=== PATIENT | male | born 1965 | race Hispanic/Latino ===

== ENCOUNTER 2019-08-23 15:21 | Emergency (ER) | payer MEDICARE, OTHER ==
[~2019-08-23] VITALS: Ht 170.2 cm; Wt 128.9 kg
[2019-08-23] MEDS ORDERED: CITA40TA4 PO (15:39)
[2019-08-23] MEDS ORDERED: SYNT25TA PO (15:39)
[2019-08-23 16:19] LABS: BASO # 0.1 10^3/uL (0.0-0.2); BASO % 0.7 % (0.0-1.0); EOS # 0.2 10^3/uL (0.0-0.5); EOS % 2.2 % (0.0-3.0); HEMATOCRIT 47.9 % (42.0-52.0); HEMOGLOBIN 15.8 g/dl (13.5-17.5); LYMPH # 3.8 10^3/uL (1.5-5.0); LYMPH % 37.8 % (24.0-44.0); MEAN CORPUSCULAR HEMOGLOBIN 28.3 pg (27.0-33.0); MEAN CORPUSCULAR VOLUME 85.8 fl (80.0-96.0); MONO # 0.9 10^3/uL (0.0-0.8); MONO % 8.6 % (0.0-5.0); NEUTROPHILS % 50.3 % (36.0-66.0); PLATELET COUNT, AUTOMATED 284 10^3/uL (150-450); RED BLOOD COUNT 5.58 10^6/uL (4.30-6.10)
[2019-08-23 16:35] LABS: INR 1.01
[2019-08-23 16:39] LABS: ERYTHROCYTE SEDIMENTATION RATE 11 mm/hr (0-20)
[2019-08-23 16:45] LABS: BLOOD UREA NITROGEN 17 MG/DL (7-18); C REACTIVE PROTEIN QUANTITATIV 0.37 MG/DL (0.00-0.30); CALCIUM LEVEL 9.5 MG/DL (8.5-10.1); CARBON DIOXIDE LEVEL 27 MEQ/L (21-32); CHLORIDE LEVEL 107 MEQ/L (98-107); CREATININE FOR GFR 1.13 MG/DL (0.70-1.30); GLOMERULAR FILTRATION RATE > 60.0 (>56); GLUCOSE, FASTING 99 MG/DL (70-100); SODIUM LEVEL 140 MEQ/L (136-145)
--- NOTE | 2019-08-23 17:03 | REP ---
Right lower extremity Duplex Doppler venous ultrasound: Real time compression and duplex Doppler interrogation of the right lower extremity deep venous system is performed. The right common femoral, superficial femoral and popliteal veins are fully compressible with transducer pressure and demonstrate normal spontaneous and phasic flow, without evidence of deep venous thrombosis. Impression: No evidence of deep venous thrombosis of the right lower extremity femoral popliteal venous system. Electronically Signed by Murphy Tavarez MD 08/23/2019 04:55 P
[2019-08-23] MEDS ORDERED: KEFL500C17 PO (17:27)
[2019-08-23] MEDS ORDERED: CEPHALEXIN 500 MG CAP PO ONE (17:30)
[2019-08-23 17:52] VITALS: BP 159/81
== END 2019-08-23 17:53 | disposition home or self-care (01) ==
LOC: M ED 15:21
DX: L03.115 Cellulitis of right lower limb (principal); Z86.718 Personal history of other venous thrombosis and embolism; E03.9 Hypothyroidism, unspecified; F41.9 Anxiety disorder, unspecified; Z91.013 Allergy to seafood; Z79.899 Other long term (current) drug therapy

== ENCOUNTER → 2019-10-26 | Outpatient (REF) | payer MEDICARE, MEDICAID ==
[~2019-10-26] MED LIST: CITA40TA4 PO; KEFL500C17 PO; SYNT25TA PO
[2019-11-30 08:07] LABS: BASO # 0.1 10^3/uL (0.0-0.2); BASO % 0.5 % (0.0-1.0); EOS # 0.2 10^3/uL (0.0-0.5); HEMATOCRIT 46.8 % (42.0-52.0); HEMOGLOBIN 15.1 g/dl (13.5-17.5); LYMPH # 4.2 10^3/uL (1.5-5.0); MEAN CORPUSCULAR HEMOGLOBIN 29.3 pg (27.0-33.0); MEAN CORPUSCULAR HGB CONC 32.3 g/dl (32.0-36.5); MEAN CORPUSCULAR VOLUME 90.7 fl (80.0-96.0); MONO # 0.9 10^3/uL (0.0-0.8); MONO % 7.5 % (0.0-5.0); NEUTROPHILS # 6.2 10^3/uL (1.5-8.5); NEUTROPHILS % 53.6 % (36.0-66.0); PLATELET COUNT, AUTOMATED 279 10^3/uL (150-450); RED BLOOD COUNT 5.16 10^6/uL (4.30-6.10); WHITE BLOOD COUNT 11.5 10^3/uL (4.0-10.0)
[2019-12-11 14:04] LABS: ALT/SGPT 47 U/L (12-78); BILIRUBIN,TOTAL 0.4 MG/DL (0.2-1.0); BLOOD UREA NITROGEN 14 MG/DL (7-18); CARBON DIOXIDE LEVEL 27 MEQ/L (21-32); CHLORIDE LEVEL 105 MEQ/L (98-107); CREATININE FOR GFR 1.06 MG/DL (0.70-1.30); GLOMERULAR FILTRATION RATE > 60.0 (>56); GLUCOSE, FASTING 136 MG/DL (70-100); POTASSIUM SERUM 3.9 MEQ/L (3.5-5.1); SODIUM LEVEL 139 MEQ/L (136-145)
[2019-12-11 14:05] LABS: ALBUMIN 3.6 GM/DL (3.2-5.2); CHOLESTEROL LEVEL 191 MG/DL (<200); CHOLESTEROL RISK RATIO 4.152 (<5); FREE T4 1.07 NG/DL (0.76-1.46); HDL CHOLESTEROL 46 MG/DL (>40); HEMOGLOBIN A1c 6.3 %; LDL CHOLESTEROL 85 MG/DL (<100); NON-HDL-C 145 MG/DL; TOTAL 25(OH) VITAMIN D 47.2 NG/ML (30.0-100.0); TOTAL PROTEIN 7.2 GM/DL (6.4-8.2); TRIGLYCERIDES LEVEL 300 MG/DL (<150)
== END ==
LOC: M LAB REF 12:55
PROVIDERS: ATTEND Physician Assistant
DX: Z00.01 Encounter for general adult medical examination with abnormal findings (principal); Z86.2 Personal history of diseases of the blood and blood-forming organs and certain disorders involving the immune mechanism; Z68.42 Body mass index [BMI] 45.0-49.9, adult; E66.01 Morbid (severe) obesity due to excess calories; E03.9 Hypothyroidism, unspecified; Z23 Encounter for immunization; Z87.820 Personal history of traumatic brain injury; F41.1 Generalized anxiety disorder; Z78.9 Other specified health status; M25.562 Pain in left knee; M25.561 Pain in right knee

== ENCOUNTER 2019-10-28 11:00 | Emergency (ER) | payer MEDICARE, MEDICAID | END 2019-10-28 13:30 | disposition home or self-care (01) | LOC: M ED 11:00 | DX: M17.0 Bilateral primary osteoarthritis of knee (principal); M25.461 Effusion, right knee; M25.462 Effusion, left knee; S89.91XS Unspecified injury of right lower leg, sequela; X58.XXXS Exposure to other specified factors, sequela; E11.9 Type 2 diabetes mellitus without complications; E03.9 Hypothyroidism, unspecified; Z86.718 Personal history of other venous thrombosis and embolism; F41.9 Anxiety disorder, unspecified; Z91.013 Allergy to seafood; Z79.899 Other long term (current) drug therapy ==

== ENCOUNTER 2020-03-10 11:24 | Emergency (ER) | payer MEDICARE, MEDICAID ==
[~2020-03-10] VITALS: Ht 170.2 cm; Wt 135.4 kg
[2020-03-10] MEDS ORDERED: MELO15TA28 PO (11:34)
[2020-03-10] MEDS ORDERED: LEVO100T5 PO (11:34)
[2020-03-10] MEDS ORDERED: KETOROLAC 30 MG/ML 1ML VIAL IM ONE (12:00)
[2020-03-10] MEDS ORDERED: LIDOCAINE 5% (LIDODERM) PATCH TD ONE (12:00)
[2020-03-10] MEDS ORDERED: ACETAMINOPHEN 500 MG TAB PO ONE (12:00)
--- NOTE | 2020-03-10 12:19 | REP ---
INDICATION: pain, radiating to thigh COMPARISON: None. TECHNIQUE: AP and frog-lateral views of the left hip FINDINGS: Generalized age-related changes include subtle increased sclerosis to the acetabulum with minimal joint space narrowing. No further overt osteoarthritic or significant degenerative changes are appreciated. No evidence for acute or healed injury. Surrounding soft tissues are normal. IMPRESSION: Mild generalized age-related changes. <Electronically signed by Desmond Rodriguez > 03/10/20 [id number]
--- NOTE | 2020-03-10 12:23 | REP ---
INDICATION: low back pain radiating into right thigh. COMPARISON: None. TECHNIQUE: Axial noncontrast images of the lumbosacral spine from mid T12 through mid sacrum with coronal and sagittal reformations. This CT examination was performed using the following dose reduction techniques: Automated exposure control, adjustment of mA and/or kv according to the patient's size, and use of iterative reconstruction technique. FINDINGS: Alignment and lordosis maintained. Moderate to advanced multilevel degenerative changes include osteophytosis, endplate sclerosis, posterior osteophytes, hypertrophic facet changes, vacuum phenomenon at multiple disc levels and associated disc space narrowing. Elements of chronic canal stenosis are also suggested at L2-3, L4-5 and to a lesser extent L3-4 and L5-S1. No acute fracture/compression injury or subluxation. IMPRESSION: Moderate to advanced multilevel degenerative spondylosis. Consider outpatient MRI evaluation if the patient remains symptomatic. <Electronically signed by Desmond Rodriguez > 03/10/20 [id number]
[2020-03-10] MEDS ORDERED: ROBA750T4 PO (14:10)
[2020-03-10 14:27] VITALS: BP 160/79
[2020-03-10] MEDS ORDERED: **NOTE PATIENT COMMENT** MISC XX SCH (21:00)
== END 2020-03-10 14:29 | disposition home or self-care (01) ==
LOC: M ED 11:24
DX: M47.897 Other spondylosis, lumbosacral region (principal); M47.896 Other spondylosis, lumbar region; M17.10 Unilateral primary osteoarthritis, unspecified knee; E03.9 Hypothyroidism, unspecified; E11.9 Type 2 diabetes mellitus without complications; Z91.013 Allergy to seafood; Z79.899 Other long term (current) drug therapy

== ENCOUNTER → 2020-04-22 | Outpatient (REF) | payer MEDICARE ==
[~2020-04-22] MED LIST changes: +LEVO100T5 PO; +MELO15TA28 PO; +ROBA750T4 PO
[2020-04-22 17:13] LABS: BASO # 0.1 10^3/uL (0.0-0.2); BASO % 0.8 % (0.0-1.0); EOS # 0.3 10^3/uL (0.0-0.5); EOS % 2.9 % (0.0-3.0); HEMOGLOBIN 14.9 g/dl (13.5-17.5); LYMPH # 3.3 10^3/uL (1.5-5.0); LYMPH % 35.5 % (24.0-44.0); MEAN CORPUSCULAR HEMOGLOBIN 28.8 pg (27.0-33.0); MEAN CORPUSCULAR HGB CONC 31.7 g/dl (32.0-36.5); MEAN CORPUSCULAR VOLUME 90.7 fl (80.0-96.0); MONO # 0.7 10^3/uL (0.0-0.8); MONO % 7.5 % (0.0-5.0); NEUTROPHILS # 4.9 10^3/uL (1.5-8.5); NEUTROPHILS % 52.9 % (36.0-66.0); PLATELET COUNT, AUTOMATED 261 10^3/uL (150-450); RED BLOOD COUNT 5.18 10^6/uL (4.30-6.10); WHITE BLOOD COUNT 9.2 10^3/uL (4.0-10.0)
[2020-04-22 17:25] LABS: ALBUMIN 3.7 GM/DL (3.2-5.2); ALT/SGPT 43 U/L (12-78); BILIRUBIN,TOTAL 0.4 MG/DL (0.2-1.0); BLOOD UREA NITROGEN 12 MG/DL (7-18); CALCIUM LEVEL 9.1 MG/DL (8.5-10.1); CARBON DIOXIDE LEVEL 28 MEQ/L (21-32); CHLORIDE LEVEL 105 MEQ/L (98-107); CHOLESTEROL LEVEL 208 MG/DL (<200); CHOLESTEROL RISK RATIO 4.425 (<5); CREATININE FOR GFR 1.09 MG/DL (0.70-1.30); FREE T4 0.93 NG/DL (0.76-1.46); GLOMERULAR FILTRATION RATE > 60.0 (>56); GLUCOSE, FASTING 125 MG/DL (70-100); HDL CHOLESTEROL 47 MG/DL (>40); NON-HDL-C 161 MG/DL; POTASSIUM SERUM 3.9 MEQ/L (3.5-5.1); SODIUM LEVEL 141 MEQ/L (136-145); TOTAL 25(OH) VITAMIN D 16.9 NG/ML (30.0-100.0); TOTAL PROTEIN 7.5 GM/DL (6.4-8.2); TRIGLYCERIDES LEVEL 404 MG/DL (<150)
[2020-04-22 20:40] LABS: HEMOGLOBIN A1c 6.7 %
== END ==
LOC: M LAB REF 15:48
PROVIDERS: ATTEND Physician Assistant
DX: R03.0 Elevated blood-pressure reading, without diagnosis of hypertension (principal); E55.9 Vitamin D deficiency, unspecified; R73.03 Prediabetes; E03.9 Hypothyroidism, unspecified

== ENCOUNTER 2020-05-10 10:36 | Emergency (ER) | payer MEDICARE, MEDICAID ==
[~2020-05-10] VITALS: Ht 170.2 cm; Wt 138.6 kg
[2020-05-10] MEDS ORDERED: GABA-1171 PO (10:45)
[2020-05-10] MEDS ORDERED: AMLO1TAB24 PO (10:45)
--- OUTSIDE RECORDS SUMMARY | 2020-05-10 10:49 | CCD ---
Author Organization Unknown Address [address] [place] [address] Phone [phone] Care Team Providers Care Buckle Stringer Name Role Phone Thomas Koo Mauricio Unavailable Unavailable Allergies Code Code System Name Reaction Severity Status Onset Metformin Hcl Active 10/20/2019 Medications Name Status Start Date Stop Date amlodipine 5 mg tablet Take 1 tablet every day by oral route. Active Not available cephalexin 500 mg capsule TAKE 1 CAPSULE BY MOUTH EVERY 12 HOURS Completed 01/23/2020 citalopram 40 mg tablet TAKE 1 TABLET BY MOUTH ONCE DAILY Active Not a vailable clindamycin HCl 300 mg capsule TAKE 1 CAPSULE BY MOUTH EVERY 8 HOURS DIRECTED FOR CELLULITIS Active Not available Flublok Quad (PF) 180 mcg (45 mcg x 4)/0.5 mL IM syringe PHARMACIST ADMINISTERED IMMUNIZATION ADMINISTERED AT TIME OF DISPENSING Completed 01/23/2020 levothyroxine 100 mcg tablet TAKE 1 TABLET BY MOUTH ONCE DAILY Active Not a vailable meloxicam 15 mg tablet TAKE 1 TABLET BY MOUTH ONCE DAILY Active Not a vailable methocarbamol 750 mg tablet TAKE 1 TABLET BY MOUTH THREE TIMES DAILY Active Not available Problems Name Status Onset Date Source Hypothyroidism Active 10/20/2019 History Vitamin D Deficiency Active 10/20/2019 History Body Mass Index 30+ - Obesity Active 10/20/2019 Hi story Severe Obesity Active 10/20/2019 History Generalized Anxiety Disorder Active 10/20/2019 His tory Prediabetes Active 10/20/2019 History Elevated Blood-pressure Reading without Diagnosis of Hyperte nsion Active 10/20/2019 History Influenza Vaccine Needed Active 10/20/2019 History Procedure by Method Unknown 10/20/2019 History Pain in Right Knee Active 10/20/2019 History Pain in Left Knee Active 10/20/2019 History Clinical Finding Active 10/20/2019 History Essential Hypertension Active 05/01/2020 Low Back Pain Active 05/01/2020 Pain of Left Hip Joint Active 05/01/2020 Procedures Date Name Performed by 05/01/2020 XR, Hip, Unilateral [facility] [address] [place] [address] (Work [address]) 05/01/2020 XR, Lumbosacral Spine, 2 or 3 View [facility] [address] [place] [address] (Work Place) Notes: feet bilaterally Results Lab Results Date Name Specimen Result Interpretation Description Value Range Status Address 04/22/2020 CBC W/ Auto Diff Blood venous Normal White Blood C ount 9.2 10 4.0-10.0 10 [facility]: [address] [facility] Blood venous Normal Red Blood Count 5.18 10 4.30- 6.10 10 [facility]: [address] [facility] Blood venous Normal Hemoglobin 14.9 g/dL 13.5-17. 5 g/dL [facility]: [address] [facility] Blood venous Normal Hematocrit 47.0 % 42.0-52.0 % [facility]: [address] [facility] Blood venous Normal Mean Corpuscular Volume 90.7 fL 80.0-96.0 fL [facility]: [address] [place] [address] Blood venous Normal Mean Corpuscular Hemoglob in 28.8 pg 27.0-33.0 pg [facility]: [address] [facility] Blood venous Low Mean Corpuscular HGB Conc 31.7 g/dL 32.0-36.5 g/dL [facility]: [address] [facility] Blood venous Normal Red Cell Distribution Wid th 14.5 % 11.5-14.5 % [facility]: [address] [facility] Blood venous Normal Platelet Count, Automated 261 10 150-450 10 [facility]: [address] [facility] Blood venous Normal Neutrophils % 52.9 % 36.0-66. 0 % [facility]: [address] [facility] Blood venous Normal Lymph % 35.5 % 24.0-44.0 % [facility]: [address] [facility] Blood venous High Boone % 7.5 % 0.0-5.0 % [facility]: [address] [place] [address] Blood venous Normal Eos % 2.9 % 0.0-3.0 % [facility]: [address] [place] [address] Blood venous Normal Baso % 0.8 % 0.0-1.0 % [facility]: [address] [place] [address] Blood venous Normal Immature Granulocyte % 0.4 % 0-3.0 % [facility]: [address] [place] [address] Blood venous Normal Nucleated Red Blood Cell % 0. 0 % 0-0 % [facility]: [address] [place] [address] Blood venous Normal Neutrophils # 4.9 10 1.5-8.5 10 [facility]: [address] [place] [address] Blood venous Normal Lymph # 3.3 10 1.5-5.0 10 [facility]: [address] [place] [address] Blood venous Normal Boone # 0.7 10 0.0-0.8 10 [facility]: [address] [place] [address] Blood venous Normal Eos # 0.3 10 0.0-0.5 10 [facility]: [address] [place] [address] Blood venous Normal Baso # 0.1 10 0.0-0.2 10 [facility]: [address] [place] [address] 04/22/2020 CMP, Serum or Plasma Blood venous High Glu cose, Fasting 125 mg/dL 70-100 mg/dL [facility] nter: [address] [place] [address] Blood venous Normal Blood Urea Nitrogen 12 mg/dL 7-18 mg/dL [facility]: [address] [place] [address] Blood venous Normal Creatinine for GFR 1.09 mg/dL 0.70-1.30 mg/dL [facility]: [address] [place] [address] Blood venous Normal Glomerular Filtration Rate > 60.0 >56 [facility]: [address] [place] [address] Blood venous Normal Sodium Level 141 mEq/L 136-14 5 mEq/L [facility]: [address] [facility] Blood venous Normal Potassium Serum 3.9 mEq/L 3.5 -5.1 mEq/L [facility]: [address] [facility] Blood venous Normal Chloride Level 105 mEq/L 98-1 07 mEq/L [facility]: [address] [facility] Blood venous Normal Carbon Dioxide Level 28 mEq/L 21-32 mEq/L [facility]: [address] [facility] Blood venous Normal Anion Gap 8 mEq/L 8-16 mEq/L [facility]: [address] [facility] Blood venous Normal Calcium Level 9.1 mg/dL 8.5-1 0.1 mg/dL [facility]: [address] [facility] Blood venous Normal AST/SGOT 21 U/L 7-37 U/L [facility]: [address] [facility] Blood venous Normal ALT/SGPT 43 U/L 12-78 U/L [facility]: [address] [facility] Blood venous Normal Alkaline Phosphatase 56 U/L 4 5-117 U/L [facility]: [address] [facility] Blood venous Normal Bilirubin,total 0.4 mg/dL 0.2 -1.0 mg/dL [facility]: [address] [facility] Blood venous Normal Total Protein 7.5 gm/dL 6.4-8 .2 gm/dL [facility]: [address] [facility] Blood venous Normal Albumin 3.7 gm/dL 3.2-5.2 gm/ dL [facility]: [address] [facility] Blood venous Normal Albumin/globulin Ratio 1.0 [facility]: [address] [facility] 04/22/2020 Lipid Panel, Blood High Triglycerides Lev el 404 mg/dL <150 mg/dL [facility]: [address] [facility] High Cholesterol Level 208 mg/dL <200 mg/ dL [facility]: [address] [facility] Normal HDL Cholesterol 47 mg/dL >40 mg/dL F inal [facility]: [address] [facility] Normal Non-hdl-c 161 mg/dL Final [facility]: [address] [facility] Normal Cholesterol Risk Ratio 4.425 <5 Final [facility]: 0 [facility] 04/22/2020 TSH + Free T4, Serum Blood venous Normal Thyroid Stimulating Hormone 1.670 uIU/mL 0.358-3.740 uIU/mL Final [facility] Center: [address] [facility] Blood venous Normal Free T4 0.93 NG/dL 0.76-1.46 NG/dL Final [facility]: [address] [place] [address] 04/22/2020 Vitamin D, 25-Hydroxy, Total, Serum Blood venous Low Total 25(Oh) Vitamin D 16.9 NG/mL 30.0-100.0 NG/mL Final [facility]: 0 [facility] 04/22/2020 HbA1C (Hemoglobin a1C), Blood Blood venous Normal Hemoglobin a1C 6.7 % Final [facility]: [address] [facility] Blood venous High Estimated Average Glucose 146 mg/dL 60-110 mg/dL Final [facility]: 0 [facility] Past Encounters 05/01/2020 Body Mass Index 30+ - Obesity; Low Back Pain; Pain of Left Hip Joint; Essential Hypertension Jeff Carrero MD: [address] [phone], Ph. 04/22/2020 Elevated Blood-pressure Reading without Diagnosis of Hypertension; Vitamin D Deficiency; Prediabetes; Hypothyroidism KIT OsborneC: [address] [facility] [address] [address], Ph. 04/15/2020 KIT DuarteC: [address] [facility] [address] [place] [phone], Ph. 01/23/2020 Prediabetes; Body Mass Index 30+ - Obesity; Pain in Left Knee; Pain in Right Knee; Severe Obesity KIT DuarteC: [address] [facility], [facility] [address], [place] [address], Ph. Social History Tobacco Smoking Status Never Smoker Vaccine List Vaccine Type influenza, injectable, quadrivalent 12/21/2019 Tdap 10/20/20190.5 mL Plan of Care Reminders Provider Appointments None recorded. Lab None recorded. Referral None recorded. Procedures None recorded. Surgeries None recorded. Imaging None recorded. Vitals 05/01/2020 01:00PM ESTABLISHED [id number] Height Weight BMI Blood Pressure 67 in 314 lbs 6.4 oz 49.2 kg/m2 (1) 178/101 mm[Hg] (2) 170/95 mm[Hg] 01/23/2020 10:10AM ESTABLISHED [id number] Height Weight BMI Blood Pressure 67 in 299 lbs 8 oz 46.9 kg/m2 (1) 149/78 mm[ Hg] (2) 153/79 mm[Hg] 10/20/2019 Height Weight BMI Blood Pressure 67 in 287 lbs 6.08 oz 45.17 kg/m2 (1) 152/89 mm[Hg] (2) 161/89 mm[Hg]
--- OUTSIDE RECORDS SUMMARY | 2020-05-10 10:49 | CCD ---
Author Organization Unknown Address [address] [place] [address] Phone [phone] Care Team Providers Care Cisco Network Engineer Name Role Phone Thomas Koo Mauricio Unavailable Unavailable Allergies Code Code System Name Reaction Severity Status Onset Metformin Hcl Active 10/20/2019 Medications Name Status Start Date Stop Date cephalexin 500 mg capsule TAKE 1 CAPSULE [...] 10/20/2019 History Clinical Finding Active 10/20/2019 History Procedures Notes: feet bilaterally Results Lab Results None recorded. Past Encounters 04/22/2020 Elevated Blood-pressure Reading without Diagnosis of Hypertension; Vitamin D Deficiency; Prediabetes; Hypothyroidism Abby Page, RPA-C: [address], [place] [address], Ph. 04/15/2020 JOHANNA Duarte: [address] [facility], [facility] [address], [place] [address], Ph. 01/23/2020 Prediabetes; Body Mass Index 30+ - Obesity; Pain in Left Knee; Pain in Right Knee; Severe Obesity JOHANNA Duarte: [address] [facility], [facility] [address], [place] [address], Ph. Social History Tobacco Smoking Status Never Smoker Vaccine List Vaccine Type influenza, injectable, quadrivalent 12/21/2019 Tdap 10/20/20190.5 mL Plan of Care Reminders Provider Appointments None recorded. Lab None recorded. Referral None recorded. Procedures None recorded. Surgeries None recorded. Imaging None recorded. Vitals 01/23/2020 10:10AM ESTABLISHED [id number] Height Weight BMI Blood Pressure 67 in 299 lbs 8 oz 46.9 kg/m2 (1) 149/78 mm[ Hg] (2) 153/79 mm[Hg] 10/20/2019 Height Weight BMI Blood Pressure 67 in 287 lbs 6.08 oz 45.17 kg/m2 (1) 152/89 mm[Hg] (2) 161/89 mm[Hg]
--- OUTSIDE RECORDS SUMMARY | 2020-05-10 10:50 | CCD ---
Author Author [facility] Organization [facility] Address Unknown Phone Unavailable Care Team Providers Care Supervisor Train Operations Name Role Phone KOO, BHAVIN THOMAS RPA-C Unavailable Unavailable KOO, BHAVIN THOMAS RPA-C Unavailable Unavailable KOO, BHAVIN THOMAS RPA-C Unavailable Unavailable KOO, BHAVIN THOMAS RPA-C Unavailable Unavailable KOO, BHAVIN THOMAS RPA-C Unavailable Unavailable KOO, BHAVIN THOMAS RPA-C Unavailable Unavailable KOO, BHAVIN THOMAS RPA-C Unavailable Unavailable KOO, BHAVIN THOMAS RPA-C Unavailable Unavailable KOO, BHAVIN THOMAS RPA-C Unavailable Unavailable KOO, BHAVIN THOMAS RPA-C Unavailable Unavailable KOO, BHAVIN THOMAS RPA-C Unavailable Unavailable KOO, BHAVIN THOMAS RPA-C Unavailable Unavailable KOO, BHAVIN THOMAS RPA-C Unavailable Unavailable KOO, BHAVIN THOMAS RPA-C Unavailable Unavailable KOO, BHAVIN THOMAS RPA-C Unavailable Unavailable KOO, BHAVIN THOMAS RPA-C Unavailable Unavailable KOO, BHAVIN THOMAS RPA-C Unavailable Unavailable KOO, BHAVIN THOMAS RPA-C Unavailable Unavailable KOO, BHAVIN THOMAS RPA-C Unavailable Unavailable KOO, BHAVIN THOMAS RPA-C Unavailable Unavailable KOO, BHAVIN THOMAS RPA-C Unavailable Unavailable KOO, BHAVIN THOMAS RPA-C Unavailable Unavailable KOO, BHAVIN THOMAS RPA-C Unavailable Unavailable KOO, BHAVIN THOMAS RPA-C Unavailable Unavailable KOO, BHAVIN THOMAS RPA-C Unavailable Unavailable KOO, BHAVIN THOMAS RPA-C Unavailable Unavailable KOO, BHAVIN THOMAS RPA-C Unavailable Unavailable KOO, BHAVIN THOMAS RPA-C Unavailable Unavailable KOO, BHAVIN THOMAS RPA-C Unavailable Unavailable KOO, BHAVIN THOMAS RPA-C Unavailable Unavailable KOO, BHAVIN THOMAS RPA-C Unavailable Unavailable KOO, BHAVIN THOMAS RPA-C Unavailable Unavailable KOO, BHAVIN THOMAS RPA-C Unavailable Unavailable KOO, BHAVIN THOMAS RPA-C Unavailable Unavailable KOO, BHAVIN THOMAS RPA-C Unavailable Unavailable KOO, BHAVIN THOMAS RPA-C Unavailable Unavailable KOO, BHAVIN THOMAS RPA-C Unavailable Unavailable KOO, BHAVIN THOMAS RPA-C Unavailable Unavailable KOO, BHAVIN THOMAS RPA-C Unavailable Unavailable [facility] [place] Unavailable Unavailable Mauricio Carrero MD Unavailable Unavailable Mauricio Carrero MD Unavailable Unavailable Mauricio Carrero MD Unavailable Unavailable Mauricio Carrero MD Unavailable Unavailable Mauricio Carrero MD Unavailable Unavailable Mauricio Carrero MD Unavailable Unavailable Mauricio Carrero MD Unavailable Unavailable Mauricio Carrero MD Unavailable Unavailable Mauricio Carrero MD Unavailable Unavailable Mauricio Carrero MD Unavailable Unavailable Mauricio Carrero MD Unavailable Unavailable Mauricio Carrero MD Unavailable Unavailable Mauricio Carrero MD Unavailable Unavailable Mauricio Carrero MD Unavailable Unavailable Mauricio Carrero MD Unavailable Unavailable Mauricio Carrero MD Unavailable Unavailable Mauricio Carrero MD Unavailable Unavailable Mauricio Carrero MD Unavailable Unavailable Mauricio Carrero MD Unavailable Unavailable Mauricio Carrero MD Unavailable Unavailable Mauricio Carrero MD Unavailable Unavailable Mauricio Carrero MD Unavailable Unavailable Mauricio Carrero MD Unavailable Unavailable Mauricio Carrero MD Unavailable Unavailable Mauricio Carrero MD Unavailable Unavailable Mauricio Carrero MD Unavailable Unavailable Mauricio Carrero MD Unavailable Unavailable Mauricio Carrero MD Unavailable Unavailable Mauricio Carrero MD Unavailable Unavailable Mauricio Carrero MD Unavailable Unavailable Mauricio Carrero MD Unavailable Unavailable Mauricio Carrero MD Unavailable Unavailable Mauricio Carrero MD Unavailable Unavailable Mauricio Carrero MD Unavailable Unavailable Mauricio Carrero MD Unavailable Unavailable Mauricio Carrero MD Unavailable Unavailable Mauricio Carrero MD Unavailable Unavailable Mauricio Carrero MD Unavailable Unavailable Mauricio Carrero MD Unavailable Unavailable Mauricio Carrero MD Unavailable Unavailable Mauricio Carrero MD Unavailable Unavailable Mauricio Carrero MD Unavailable Unavailable Mauricio Carrero MD Unavailable Unavailable Mauricio Carrero MD Unavailable Unavailable Mauricio Carrero MD Unavailable Unavailable Mauricio Carrero MD Unavailable Unavailable Mauricio Carrero MD Unavailable Unavailable Mauricio Carrero MD Unavailable Unavailable Mauricio Carrero MD Unavailable Unavailable Mauricio Carrero MD Unavailable Unavailable Mauricio Carrero MD Unavailable Unavailable Mauricio Carrero MD Unavailable Unavailable Mauricio Carrero MD Unavailable Unavailable Mauricio Carrero MD Unavailable Unavailable Carrero, Mauricio Aguilar MD Unavailable Unavailable Carrero, Mauricio Aguilar MD Unavailable Unavailable Carrero, Mauricio Aguilar MD Unavailable Unavailable Carrero, Mauricio Aguilar MD Unavailable Unavailable Carrero, Mauricio Aguilar MD Unavailable Unavailable Carrero, Mauricio Aguilar MD Unavailable Unavailable Acrrero, Mauricio Aguilar MD Unavailable Unavailable Carrero, Mauricio Aguilar MD Unavailable Unavailable Carrero, Mauricio Aguilar MD Unavailable Unavailable Carrero, Mauricio Aguilar MD Unavailable Unavailable Carrero, Mauricio Aguilar MD Unavailable Unavailable Carrero, Mauricio Aguilar MD Unavailable Unavailable Carrero, Mauricio Aguilar MD Unavailable Unavailable Carrero, Mauricio Aguilar MD Unavailable Unavailable Carrero, Mauricio Aguilar MD Unavailable Unavailable Carrero, Mauricio Aguilar MD Unavailable Unavailable Carrero, Mauricio Aguilar MD Unavailable Unavailable Carrero, Mauricio Aguilar MD Unavailable Unavailable Carrero, Mauricio Aguilar MD Unavailable Unavailable Carrero, Mauricio Aguilar MD Unavailable Unavailable Carrero, Mauricio Aguilar MD Unavailable Unavailable Carrero, Mauricio Aguilar MD Unavailable Unavailable Carrero, Mauricio Aguilar MD Unavailable Unavailable Carrero, Mauricio Aguilar MD Unavailable Unavailable Carrero, Mauricio Aguilar MD Unavailable Unavailable Carrero, Mauricio Aguilar MD Unavailable Unavailable Carrero, Mauricio Aguilar MD Unavailable Unavailable Carrero, Mauricio Aguilar MD Unavailable Unavailable Carrero, Mauricio Aguilar MD Unavailable Unavailable Carrero, Mauricio Aguilar MD Unavailable Unavailable Carrero, Mauricio Aguilar MD Unavailable Unavailable Carrero, Mauricio Aguilar MD Unavailable Unavailable Carrero, Mauricio Aguilar MD Unavailable Unavailable Carrero, Mauricio Aguilar MD Unavailable Unavailable Carrero, Mauricio Aguilar MD Unavailable Unavailable MCELHERAN, ALAN PA Unavailable Unavailable MCELHERAN, ALAN PA Unavailable Unavailable MCELHERAN, ALAN PA Unavailable Unavailable MCELHERAN, ALAN PA Unavailable Unavailable MCELHERAN, ALAN PA Unavailable Unavailable MCELHERAN, ALAN PA Unavailable Unavailable MCELHERAN, ALAN PA Unavailable Unavailable MCELHERAN, ALAN PA Unavailable Unavailable MCELHERAN, ALAN PA Unavailable Unavailable MCELHERAN, ALAN PA Unavailable Unavailable MCELHERAN, ALAN PA Unavailable Unavailable MCELHERAN, ALAN PA Unavailable Unavailable MCELHERAN, ALAN PA Unavailable Unavailable MCELHERAN, ALAN PA Unavailable Unavailable MCELHERAN, ALAN PA Unavailable Unavailable MCELAN, ALAN PA Unavailable Unavailable MCELHERAN, ALAN PA Unavailable Unavailable MCELHERAN, ALAN PA Unavailable Unavailable MCELHERAN, ALAN PA Unavailable Unavailable MCELHERAN, ALAN PA Unavailable Unavailable MCELHERAN, ALAN PA Unavailable Unavailable MCELHERAN, ALAN PA Unavailable Unavailable MCELHERAN, ALAN PA Unavailable Unavailable MCELAN, ALAN PA Unavailable Unavailable MCELHERAN, ALAN PA Unavailable Unavailable MCELHERAN, ALAN PA Unavailable Unavailable MCELHERAN, ALAN PA Unavailable Unavailable MCELHERAN, ALAN PA Unavailable Unavailable BLAKE, YOKO Unavailable Unavailable BLAKE, YOKO Unavailable Unavailable BLAKE, YOKO Unavailable Unavailable BLAKE, YOKO Unavailable Unavailable BLAKE, YOKO Unavailable Unavailable BLAKE, YOKO Unavailable Unavailable BLAKE, YOKO Unavailable Unavailable BLAKE, YOKO Unavailable Unavailable BLAKE, YOKO Unavailable Unavailable BLAKE, YOKO Unavailable Unavailable BLAKE, YOKO Unavailable Unavailable BLAKE, YOKO Unavailable Unavailable BLAKE, YOKO Unavailable Unavailable BLAKE, YOKO Unavailable Unavailable BLAKE, YOKO Unavailable Unavailable BLAKE, YOKO Unavailable Unavailable BLAKE, YOKO Unavailable Unavailable BLAKE, YOKO Unavailable Unavailable BLAKE, YOKO Unavailable Unavailable BLAKE, YOKO Unavailable Unavailable BLAKE, YOKO Unavailable Unavailable BLAKE, YOKO Unavailable Unavailable BLAKE, YOKO Unavailable Unavailable BLAKE, YOKO Unavailable Unavailable BLAKE, YOKO Unavailable Unavailable Leticia, J Rafa PA-C Unavailable Unavailable Leticia, J Rafa PA-C Unavailable Unavailable Leticia, J Rafa PA-C Unavailable Unavailable Leticia, J Rafa PA-C Unavailable Unavailable Leticia, J Rafa PA-C Unavailable Unavailable Leticia, J Rafa PA-C Unavailable Unavailable Leticia, J Rafa PA-C Unavailable Unavailable Leticia, J Rafa PA-C Unavailable Unavailable Leticia, J Rafa PA-C Unavailable Unavailable Leticia, J Rafa PA-C Unavailable Unavailable Leticia, J Rafa PA-C Unavailable Unavailable KOO, BHAVIN THOMAS RPA-C Unavailable Unavailable KOO, BHAVIN THOMAS RPA-C Unavailable Unavailable KOO, BHAVIN THOMAS RPA-C Unavailable Unavailable KOO, BHAVIN THOMAS RPA-C Unavailable Unavailable KOO, BHAVIN THOMAS RPA-C Unavailable Unavailable KOO, BHAVIN THOMAS RPA-C Unavailable Unavailable KOO, BHAVIN THOMAS RPA-C Unavailable Unavailable KOO, BHAVIN THOMAS RPA-C Unavailable Unavailable KOO, BHAVIN THOMAS RPA-C Unavailable Unavailable KOO, BHAVIN THOMAS RPA-C Unavailable Unavailable KOO, BHAVIN THOMAS RPA-C Unavailable Unavailable KOO, BHAVIN THOMAS RPA-C Unavailable Unavailable KOO, BHAVIN THOMAS RPA-C Unavailable Unavailable KOO, BHAVIN THOMAS RPA-C Unavailable Unavailable KOO, BHAVIN THOMAS RPA-C Unavailable Unavailable KOO, BHAVIN THOMAS RPA-C Unavailable Unavailable KOO, BHAVIN THOMAS RPA-C Unavailable Unavailable KOO, BHAVIN THOMAS RPA-C Unavailable Unavailable KOO, BHAVIN THOMAS RPA-C Unavailable Unavailable KOO, BHAVIN THOMAS RPA-C Unavailable Unavailable KOO, BHAVIN THOMAS RPA-C Unavailable Unavailable KOO, BHAVIN THOMAS RPA-C Unavailable Unavailable KOO, BHAVIN THOMAS RPA-C Unavailable Unavailable KOO, BHAVIN THOMAS RPA-C Unavailable Unavailable KOO, BHAVIN THOMAS RPA-C Unavailable Unavailable KOO, BHAVIN THOMAS RPA-C Unavailable Unavailable KOO, BHAVIN THOMAS RPA-C Unavailable Unavailable KOO, BHAVIN THOMAS RPA-C Unavailable Unavailable KOO, BHAVIN THOMAS RPA-C Unavailable Unavailable KOO, BHAVIN THOMAS RPA-C Unavailable Unavailable KOO, BHAVIN THOMAS RPA-C Unavailable Unavailable KOO, BHAVIN THOMAS RPA-C Unavailable Unavailable KOO, BHAVIN THOMAS RPA-C Unavailable Unavailable KOO, BHAVIN THOMAS RPA-C Unavailable Unavailable KOO, BHAVIN THOMAS RPA-C Unavailable Unavailable KOO, BHAVIN THOMAS RPA-C Unavailable Unavailable KOO, BHAVIN THOMAS RPA-C Unavailable Unavailable KOO, BHAVIN THOMAS RPA-C Unavailable Unavailable KOO, BHAVIN THOMAS RPA-C Unavailable Unavailable [facility], [facility] Unavailable Unavailable NO, PCP Unavailable Unavailable Re-disclosure Warning The records that you are about to access may contain information from federally-assisted alcohol or drug abuse programs. If such information is present, then the following federally mandated warning applies: This information has been disclosed to you from records protected by federal confidentiality rules (42 CFR part 2). The federal rules prohibit you from making any further disclosure of this information unless further disclosure is expressly permitted by the written consent of the person to whom it pertains or as otherwise permitted by 42 CFR part 2. A general authorization for the release of medical or other information is NOT sufficient for this purpose. The Federal rules restrict any use of the information to criminally investigate or prosecute any alcohol or drug abuse patient.The records that you are about to access may contain highly sensitive health information, the redisclosure of which is protected by Article 27-F of the [place] Public Health law. If you continue you may have access to information: Regarding HIV / AIDS; Provided by facilities licensed or operated by the [place] Office of Mental Health; or Provided by the [place] [facility] Office for People With Developmental Disabilities. If such information is present, then the following [place] [facility] mandated warning applies: This information has been disclosed to you from confidential records which are protected by state law. State law prohibits you from making any further disclosure of this information without the specific written consent of the person to whom it pertains, or as otherwise permitted by law. Any unauthorized further disclosure in violation of state law may result in a fine or shelter sentence or both. A general authorization for the release of medical or other information is NOT sufficient authorization for further disc losure. Allergies and Adverse Reactions Type Description Substance Reaction Status Data Source(s ) Allergy to substance Allergy to substance Metformin Hcl SUNMAN ([facility]) Allergy to substance Allergy to substance Metformin Hcl SUNMAN ([facility]) Allergy to substance Allergy to substance Metformin Hcl SUNMAN ([facility]) Drug allergy METFORMIN HCL Metformin hydrochloride 1000 MG Oral Tablet diarrhea, lightheadedness U [facility] Encounters Encounter Providers Location Date Indications Data Source(s ) Jeff Carrero MD: [address] [facility] [address], Ph. Attender: Jeff Carrero MD [facility] Medical 05/01/2020 12:00:00 AM EST [facility]) KIT OsborneC: [address], [address], [place] [address], Ph. Attender: YOKO BLAKE [facility] Medical 04/22/2020 12:00:00 AM EST ROBERT ([facility]) JOHANNA Osborne: [address], [place] [address], Ph. Attender: YOKO BLAKE [facility] Medical 04/22/2020 12:00:00 AM EST ROBERT ([facility]) Outpatient Attender: [facility] 04/19/2020 12:4 6:00 PM EST [facility] Emergency Attender: Rafa ZIMMERMAN-CConsultant: PCP NO 04/19/2020 12:17:00 PM EST - 04/19/2020 02:55:00 PM EST [facility] Hosp ital Patient discharged. Thomas Koo RPA-C: [address], [place] [address], Ph. Attender: THOMAS SPENCER [facility] Medical 04/15/2020 12:00:00 AM EST ROBERT ([facility]) Thomas Koo RPA-C: [address], [place] [address], Ph. Attender: THOMAS SPENCER [facility] Medical 04/15/2020 12:00:00 AM EST ROBERT ([facility]) Outpatient Attender: ALAN ZIMMERMAN Physical Therapy 01/31/2020 02:15:00 PM EST MEDENT ([facility]) Thomas Koo RPA-C: [address], [place] [address], Ph. Attender: THOMAS SPENCER [facility] Medical 01/23/2020 12:00:00 AM EST ROBERT ([facility]) Thomas Koo RPA-C: [address], [place] [address], Ph. Attender: THOMAS SPENCER [facility] Medical 01/23/2020 12:00:00 AM EST ROBERT ([facility]) Thomas Koo RPA-C: [address], [place] [address], Ph. Attender: THOMAS SPENCER [facility] 01/23/2020 12:00:00 AM EST ROBERT ([facility]) Outpatient Attender: ALAN ZIMMERMAN Physical Therapy 12/28/2019 09:45:00 AM EDT MEDENT ([facility]) Outpatient Attender: THOMAS SPENCER [facility] 12/11/2019 03:14:[address] [facility] 03:13:[address] [facility] Outpatient Attender: THOMAS SPENCER [facility] 12/11/2019 03:13:[address] [facility]: [facility] 11/14 01:28:[address] [facility] Outpatient Attender: THOMAS SPENCER [facility] 12/06/2019 01:28:[address] [facility] Outpatient Attender: ALAN ZIMMERMAN Physical Therapy 11/30/2019 03:30:00 PM EDT MEDENT ([facility]) Outpatient Att[facility] 10/13 02:47:[address] [facility] Outpatient Attender: THOMAS SPENCER [facility] 10/31/2019 02:47:[address] [facility] Outpatient [facility]: [facility] 10/13 02:46:[address] [facility] Outpatient Att[facility]: [facility] 10/13 06:03:[address] [facility] Outpatient Attender: ALAN ZIMMERMAN Physical Therapy 10/30/2019 08:45:00 AM EDT MEDENT ([facility]) Outpatient Attender: MIHIR SRINIVASAN [facility] 10/13 05:41:[address] [facility] Outpatient Attender: THOMAS SPENCER [facility] 10/21/2019 12:00:[address] [facility] Outpatient Attender: THOMAS KOO RPA-C JC 10/20/2019 11:36:[address] [facility] Immunizations Vaccine Date Status Description Data Source(s) New in 2012. IIV4 12/21/2019 12:00:00 AM EDT completed 12/21/19 20 ROBERT ([facility]) New in 2012. IIV4 12/21/2019 12:00:00 AM EDT completed 12/21/19 20 ROBERT ([facility]) New in 2012. IIV4 12/21/2019 12:00:00 AM EDT [facility] 10/20/2019 12:00:00 AM EDT completed 10/20/2019 0.5 mL ROBERT ([facility]) Tdap 10/20/2019 12:00:00 AM EDT completed 10/20/2019 0.5 mL ROBERT ([facility]) Tdap 10/20/2019 12:00:00 AM EDT completed 10/20/2019 0.5 mL ROBERT ([facility]) Medications Medication Brand Name Start Date Product Form Dose Route Admi nistrative Instructions Pharmacy Instructions Status Indications Reaction Description Data Source(s) Cephalexin 500 MG Oral Capsule cephalexi n 500 mg capsule TAKE 1 CAPSULE BY MOUTH EVERY 12 HOURS cephalexin 500 mg capsule TAKE 1 CAPSULE BY MOUTH EVER Y 12 HOURS completed cephalexin 500 MG Oral Capsule ROBERT ([facility]) Flublok Quad (PF) 180 mcg (45 mcg x 4)/0.5 mL IM syringe PHARMACIST ADMINISTERED IMMUNIZATION ADMINISTERED AT TIME OF DISPENSING [id number] completed 0.5 ML influenza A v irus A/[place] (H1N1) antigen 0.09 MG/ML / influenza A virus A/[place] (H3N2) antigen 0.09 MG/ML / influenza B virus B/[facility] antigen 0.09 MG/ML / influenza B virus B/ antigen 0.09 MG/ML Prefilled Syringe [Flublok Quadrivalent ] ROBERT ([facility]) Flublok Quad (PF) 180 mcg (45 mcg x 4)/0.5 mL IM syringe PHARMACIST ADMINISTERED IMMUNIZATION ADMINISTERED AT TIME OF DISPENSING [id number] completed 0.5 ML influenza A v irus A/ (H1N1) antigen 0.09 MG/ML / influenza A virus A/[place] (H3N2) antigen 0.09 MG/ML / influenza B virus B/[facility] antigen 0.09 MG/ML / influenza B virus B/ antigen 0.09 MG/ML Prefilled Syringe [Flublok Quadrivalent ] ROBERT ([facility]) Flublok Quad (PF) 180 mcg (45 mcg x 4)/0.5 mL IM syringe PHARMACIST ADMINISTERED IMMUNIZATION ADMINISTERED AT TIME OF DISPENSING [id number] completed 0.5 ML influenza A v irus A/[place] (H1N1) antigen 0.09 MG/ML / influenza A virus A/[place] (H3N2) antigen 0.09 MG/ML / influenza B virus B/[facility] antigen 0.09 MG/ML / influenza B virus B/ antigen 0.09 MG/ML Prefilled Syringe [Flublok Quadrivalent ] ROBERT ([facility]) Cephalexin 500 MG Oral Capsule cephalexi n 500 mg capsule TAKE 1 CAPSULE BY MOUTH EVERY 12 HOURS cephalexin 500 mg capsule TAKE 1 CAPSULE BY MOUTH EVER Y 12 HOURS completed cephalexin 500 MG Oral Capsule ROBERT ([facility]) Cephalexin 500 MG Oral Capsule cephalexi n 500 mg capsule TAKE 1 CAPSULE BY MOUTH EVERY 12 HOURS cephalexin 500 mg capsule TAKE 1 CAPSULE BY MOUTH EVER Y 12 HOURS completed cephalexin 500 MG Oral Capsule ROBERT ([facility]) Insurance Providers Payer name Policy type / Coverage type Policy ID Covered libertarian ID Covered libertarian's relationship to levin Policy Levin Plan Information MEDICARE COMPLETE [id number] SP [id number] MEDICARE C [id number] S [id number] MEDICAID M [id number] [place] [id number] SP [id number] MEDICARE [id number] SP [id number] MEDICARE [id number] SP [id number] MEDICARE C [id number] S [id number] MEDICARE C [id number] S [id number] EXCELLUS BCBS B [id number] S [id number] MEDICARE BLUE [address] [id number] SP [id number] [employer] [id number] SP [id number] BCBS [facility] [place] [id number] SP [id number] [id number] SP [id number] [place] [id number] SP [id number] Problems, Conditions, and Diagnoses Code Display Name Description Problem Type Effective Dates Data Source(s) 393395460548701 Pain of left hip joint Pain of Left Hip Joint Probl em 05/01/2020 12:00:00 AM CROW JONES ([facility]) [id number] Low back pain Low Back Pain Problem 05/01/2020 12:00:00 AM CROW JONES ([facility]) [id number] Essential hypertension Essential Hypertension Problem 05/01/2020 12:00:00 AM CROW JONES ([facility]) R03.0 Elevated blood-pressure reading without diagnosis of hypertension Elevated blood-pressure reading without diagnosis of hypertension 10/20/2019 11:35:[address] [facility] E55.9 Vitamin D deficiency, unspecified Vitamin D deficiency , unspecified 10/20/2019 11:35:[address] [facility] [id number] Prediabetes Prediabetes 10/20/2019 11:35:[address] [facility] Z86.2 Personal history of diseases of the blood and blood-forming organs and certain disorders involving the immune mechanism Personal history of diseases of blood and blood-forming organs 10/20/2019 11:35:37 AM EDT No 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 278.01 MORBID OBESITY MORBID OBESITY 10/20/2019 11:35: [address] [facility] [id number] Hypothyroidism, unspecified Hypothyroidism, unspecifie d 10/20/2019 11:35:[address] [facility] V05.9 Encounter for immunization Encounter for immunization 10/20/2019 11:35:[address] [facility] V15.52 Personal history of traumatic brain inju ry Personal history of traumatic brain injury 10/20/2019 11:35:[address] [facility] 300.02 Generalized anxiety disorder Generalized anxiety disor batsheva 10/20/2019 11:35:[address] [facility] Z78.9 Other specified health status Registered disabled 10/20/2019 11:35:[address] [facility] TBI -permanently disabled 719.46 Pain in left knee Pain in left knee 10/20/2019 11:35:[address] [facility] 719.46 Pain in right knee Pain in right knee 0 11:35:[address] [facility] V70.0 Encounter for general adult medical exam ination with abnormal findings Encounter for general adult medical examination with abnormal findings 10/20/2019 11:35:[address] [facility] [id number] Clinical finding Clinical Finding Problem 10/20/2019 12 :00:00 AM EDT SUNMAN ([facility]) [id number] Pain in left knee Pain in Left Knee Problem 12:00:00 AM EDT SUNMAN ([facility]) [id number] Pain in right knee Pain in Right Knee Problem 10/20/2019 12:00:00 AM EDT SUNMAN ([facility]) [id number] Procedure by method Procedure by Method Problem 0 10/20/2019 12:00:00 AM EDT - 02/01/2020 12:00:00 AM EST SUNMAN ([facility]) [id number] Influenza vaccine needed Influenza Vaccine Needed Pro blem 10/20/2019 12:00:00 AM EDT SUNMAN ([facility]) [id number] Elevated blood-pressure reading without diagnosis of hypertension Elevated Blood-pressure Reading without Diagnosis of Hypertension Problem 10/20/2019 12:00:00 AM EDT ROBERT ([facility]) [id number] Prediabetes Prediabetes Problem 10/20/2019 12:00:00 AM EDT ROBERT ([facility]) [id number] Generalized anxiety disorder Generalized Anxiety Disor batsheva Problem 10/20/2019 12:00:00 AM EDT ROBERT ([facility]) [id number] Severe obesity Severe Obesity Problem 10/20/2019 12 :00:00 AM EDT ROBERT ([facility]) [id number] Body mass index 30+ - obesity Body Mass Index 30+ - Ob esity Problem 10/20/2019 12:00:00 AM EDT ROBERT ([facility]) [id number] Vitamin D deficiency Vitamin D Deficiency Problem 10/20/2019 12:00:00 AM EDT ROBERT ([facility]) [id number] Hypothyroidism Hypothyroidism Problem 10/20/2019 12:00: 00 AM EDT ROBERT ([facility]) [id number] Clinical finding Clinical Finding Problem 10/20/2019 12 :00:00 AM EDT ROBERT ([facility]) [id number] Pain in left knee Pain in Left Knee Problem 12:00:00 AM EDT ROBERT ([facility]) [id number] Pain in right knee Pain in Right Knee Problem 10/20/2019 12:00:00 AM EDT ROBERT ([facility]) [id number] Procedure by method Procedure by Method Problem 0 10/20/2019 12:00:00 AM EDT - 02/01/2020 12:00:00 AM EST ROBERT ([facility]) [id number] Influenza vaccine needed Influenza Vaccine Needed Pro blem 10/20/2019 12:00:00 AM EDT ROBERT ([facility]) [id number] Elevated blood-pressure reading without diagnosis of hypertension Elevated Blood-pressure Reading without Diagnosis of Hypertension Problem 10/20/2019 12:00:00 AM EDT ROBERT ([facility]) [id number] Prediabetes Prediabetes Problem 10/20/2019 12:00:00 AM EDT ROBERT ([facility]) [id number] Generalized anxiety disorder Generalized Anxiety Disor batsheva Problem 10/20/2019 12:00:00 AM EDT ROBERT ([facility]) [id number] Severe obesity Severe Obesity Problem 10/20/2019 12 :00:00 AM EDT ROBERT ([facility]) [id number] Body mass index 30+ - obesity Body Mass Index 30+ - Ob esity Problem 10/20/2019 12:00:00 AM EDT ROBERT ([facility]) [id number] Vitamin D deficiency Vitamin D Deficiency Problem 10/20/2019 12:00:00 AM EDT ROBERT ([facility]) [id number] Hypothyroidism Hypothyroidism Problem 10/20/2019 12:00: 00 AM EDT ROBERT ([facility]) [id number] Clinical finding Clinical Finding Problem 10/20/2019 12 :00:00 AM EDT ROBERT ([facility]) [id number] Pain in left knee Pain in Left Knee Problem 12:00:00 AM EDT ROBERT ([facility]) [id number] Pain in right knee Pain in Right Knee Problem 10/20/2019 12:00:00 AM EDT ROBERT ([facility]) [id number] Procedure by method Procedure by Method Problem 0 10/20/2019 12:00:00 AM EDT - 02/01/2020 12:00:00 AM EST ROBERT ([facility]) [id number] Influenza vaccine needed Influenza Vaccine Needed Pro blem 10/20/2019 12:00:00 AM EDT ROBERT ([facility]) [id number] Elevated blood-pressure reading without diagnosis of hypertension Elevated Blood-pressure Reading without Diagnosis of Hypertension Problem 10/20/2019 12:00:00 AM EDT ROBERT ([facility]) 353702515 Prediabetes Prediabetes Problem 10/20/2019 12:00:00 AM EDT ROBERT ([facility]) [id number] Generalized anxiety disorder Generalized Anxiety Disor batsheva Problem 10/20/2019 12:00:00 AM EDT ROBERT ([facility]) [id number] Severe obesity Severe Obesity Problem 10/20/2019 12 :00:00 AM EDT ROBERT ([facility]) 958453830 Body mass index 30+ - obesity Body Mass Index 30+ - Ob esity Problem 10/20/2019 12:00:00 AM EDT ROBERT ([facility]) 78751143 Vitamin D deficiency Vitamin D Deficiency Problem 10/20/2019 12:00:00 AM EDT ROBERT ([facility]) 12308930 Hypothyroidism Hypothyroidism Problem 10/20/2019 12:00: 00 AM EDT ROBERT ([facility]) [id number] Personal history of other venous thrombo sis and embolism Personal history of other venous thrombosis and embolism Diagnosis 04/19/2020 12:17:00 PM [facility] [id number] Personal history of pulmonary embolism P ersonal history of pulmonary embolism Diagnosis 04/19/2020 12:17:00 PM [facility] [id number] Cellulitis of right lower limb Cellulitis of right low er limb Diagnosis 04/19/2020 12:17:00 PM [facility] R21 Rash and other nonspecific skin eruption Rash and other nonspecific skin eruption Diagnosis 04/19/2020 12:17:00 PM [facility] Surgeries/Procedures Procedure Description Date Indications Data Source(s) ARTHROCENTESIS ASPIR&/INJECTION MAJOR JT/BURSA 12:00:00 AM EST MEDENT ([facility] ) THERAPEUTIC PX 1/> AREAS EACH 15 MIN EXERCISES 12:00:00 AM EDT MEDENT ([facility] ) THERAPEUTIC PX 1/> AREAS EACH 15 MIN EXERCISES 12:00:00 AM EDT MEDENT ([facility]) Re-Eval Of PT Established Plan Of Care 20Mins Face To Face P T/Fam 01/10/2020 12:00:00 AM EDT MEDENT ([facility]) THERAPEUTIC PX 1/> AREAS EACH 15 MIN EXERCISES 12:00:00 AM EDT MEDENT ([facility]) THERAPEUTIC PX 1/> AREAS EACH 15 MIN EXERCISES 12:00:00 AM EDT MEDENT ([facility]) APPLICATION MODALITY 1/> AREAS HOT/COLD PACKS 12/04/19 12:00:00 AM EDT MEDENT ([facility]) THERAPEUTIC PX 1/> AREAS EACH 15 MIN EXERCISES 12:00:00 AM EDT MEDENT ([facility]) MANUAL THERAPY TQS 1/> REGIONS EACH 15 MINUTES 12:00:00 AM EDT MEDENT ([facility]) MANUAL THERAPY TQS 1/> REGIONS EACH 15 MINUTES 12:00:00 AM EDT MEDENT ([facility]) THERAPEUTIC PX 1/> AREAS EACH 15 MIN EXERCISES 12:00:00 AM EDT MEDENT ([facility]) THERAPEUTIC PX 1/> AREAS EACH 15 MIN EXERCISES 12:00:00 AM EDT MEDENT ([facility]) MANUAL THERAPY TQS 1/> REGIONS EACH 15 MINUTES 12:00:00 AM EDT MEDENT ([facility]) APPLICATION MODALITY 1/> AREAS HOT/COLD PACKS 11/24/19 12:00:00 AM EDT MEDENT ([facility] ) THERAPEUTIC PX 1/> AREAS EACH 15 MIN EXERCISES 12:00:00 AM EDT MEDENT ([facility]) MANUAL THERAPY TQS 1/> REGIONS EACH 15 MINUTES 12:00:00 AM EDT MEDENT ([facility]) THERAPEUTIC PX 1/> AREAS EACH 15 MIN EXERCISES 12:00:00 AM EDT MEDENT ([facility]) THERAPEUTIC PX 1/> AREAS EACH 15 MIN EXERCISES 12:00:00 AM EDT MEDENT ([facility] ) MANUAL THERAPY TQS 1/> REGIONS EACH 15 MINUTES 12:00:00 AM EDT MEDENT ([facility]) Physical Therapy Eval - Low Complexity 11/08/2019 12:0 0:00 AM EDT MEDENT ([facility] ) ARTHROCENTESIS ASPIR&/INJECTION MAJOR JT/BURSA 12:00:00 AM EDT MEDENT ([facility]) Results ID Date Data Source [id number] 04/19/2020 12:17:00 PM EST [facility] 1 OrderSheet [facility] Emergency Department [address] [place] [address] Phone #: ext- [phone] 04/19/2020 12:03 Patient: YUDELKA BELTRAN Sex: M : 1965 Age: 54yWEIGHT:136.0 kg (S) HEIGHT:67 inches (S) BMI:47.0ALLERGIES: NoneCHIEF COMPLAINT: skin rashDIAGNOSIS: Cellulitis of skinLAB ORDERSOrder Description Priority Entered Acknowledged InitialedBlood Culture STAT 12:35 04/19/2020 12:54 Kvdhdc43j X2 (Henny ZIMMERMAN; Vinod HATFIELD12:35 04/19/2020)Blood Culture STAT 12:35 04/19/2020 13:04 Jetcip45a X2 (Henny ZIMMERMAN; Vinod RN12:45 04/19/2020)CBC w Diff STAT 12:35 04/19/2020 12:54 Yomi ZIMMERMAN; Vinod RNCMP STAT 12:35 04/19/2020 12:54 Yomi ZIMMERMAN; Vinod RNLactic Acid STAT 12:35 04/19/2020 12:54 Yomi ZIMMERMAN; Vinod RNPT/PTT STAT 12:35 04/19/2020 12:54 Yomi ZIMMERMAN; Vinod RNUrinalysis (Clean STAT 12:35 04/19/2020atch) Rafa ZIMMERMAN;Culture, Wound (R STAT 12:35 04/19/2020 15:05 Miguel,anterior leg) Rafa ZIMMERMAN; Iram NguyenDIAGNOSTIC STUDY ORDERSOrder Description Priority Entered Acknowledged InitialedUS Lower Ext STAT 12:35 04/19/2020 12:55 PeterVenous Bilateral Rafa ZIMMERMAN; Vinod RN(Oxygen?(No)) Reason for Study: posterior leg pain, redness, swelling R lower leg, prior DVTTibia Fibula AP And STAT 12:35 04/19/2020 12:55 PeterLAT Right Rafa ZIMMERMAN; Vinod RN(Oxygen?(No)) Reason for Study: pain, swelling redness r lower leg, ankle and foot ? OMAnkle Complete STAT 12:35 04/19/2020 12:55 Ernst ZIMMERMAN; Vinod RN 2 OrderSheet [facility] Emergency Department [address] [place] [address] Phone #: ext- [phone] 04/19/2020 12:03 Patient: YUDELKA BELTRAN Sex: M : 1965 Age: 54y(Oxygen?(No)) Reason for Study: pain, redness, swelling R lower leg, ankle, foot, ? OMFoot Complete STAT 12:35 04/19/2020 12:55 Ernst ZIMMERMAN; Vinod HATFIELD(Oxygen?(No)) Reason for Study: pain, redness, swlling R lower ankle, foot, lower legMEDICATION/IV/DRIP/FLUID ORDERSOrder Description Priority Entered Acknowledged InitialedNS IV : Bolus 1000 12:35 04/19/2020 12:58 PetermL, then 75 mL/hr Rafa ZIMMERMAN; Vinod RN(NOW x1)Rocephin 12:35 04/19/2020 13:03 Peter(1gm/50mL) IVPB Rafa ZIMMERMAN; Vinod HATFIELD1000 mg withDextrose 50 mlspike bag (D5W)Clindamycin IVPB 12:35 04/19/2020 14:11 Cuebn111 mg (NOW x1) Rafa ZIMMERMAN; Vinod RNGENERAL ORDERSOrder Description Priority Entered Acknowledged InitialedVitals 12:35 04/19/2020 12:54 Yomi ZIMMERMAN; Vinod HATFIELDWarm blanket 12:35 04/19/2020 12:54 Yomi ZIMMERMAN; Vinod HATFIELDCrutches 14:21 04/19/2020 15:05 Rafa Rivera; Irma Nguyen[Electronically signed by Irma Rivera R.N. (15:12 04/19/2020)][Electronically signed by Rafa Kelly (15:35 04/19/2020)][Electronically locked by Irma Rivera R.N. (15:12 04/19/2020)] Name Value Range Interpretation Code Description Data [facility](s) Supporting Document(s) ID Date Data Source [id number] 04/19/2020 12:17:00 PM EST [facility] 1 Medication Reconciliation Report [facility] Emergency Department [address] [place] [address] Phone #: nbw- [phone] 04/19/2020 12:03 Patient: YUDELKA BELTRAN Sex: M : 1965 Age: 54yWeight: 136.0 kgHeight/Length: 67 in.BMI: 47.0ALLERGIES: NoneThe patient's Home Medications are listed below:CONTINUE TAKING THE FOLLOWING MEDICATIONS: CeleXA Oral (40 mg), daily Meloxicam Oral Synthroid Oral (100 mcg), dailyThe source(s) of the original Home Medication information:Not obtained.The following Medications were given to the patient in the Emergency Department:NS [IV] IV Fluids bolus 0, then 1000 mL/hr, administered: 12:58 1ROCEPHIN (1GM/50ML) [IVPB] IVPB bolus 0, then 1 gm 100 mL/hr, administered: 13:03 1Clindamycin [IVPB] IVPB bolus 0, then 600 mg 100 mL/hr, administered: 14:11 04/19/2020The following Medications were prescribed to the patient:clindamycin HCl 300 mg capsule Take 1 capsule every eight hours as directed for 10 days -- for cellulitis.Dispense 30 capsule. Refills: 0. Substitution permitted.Pharmacy - [facility] [phone] ; [place] [address]. . -- ELSIE Arndt Name Value Range Interpretation Code Description Data Savannah rce(s) Supporting Document(s) ID Date Data Source [id number] 04/19/2020 12:17:00 PM EST [facility] 1 Medication Administration Record [facility] Emergency Department [address] [place] [address] Phone #: ext- [phone] 04/19/2020 12:03 Patient: YUDELKA BELTRAN Sex: M : 1965 Age: 54yWeight: 136.0 kgHeight/Length: 67 inBMI: 47ALLERGIES: None Date/Time Medication Administered Medication OrderedStart NS [IV] NS IV : Bolus 1000 mL, then 7512:58 04/19/2020 Dose: IV Fluids mL/hr (NOW x1)Yomi Brock RN Rate: 1000 mL/hr over 1 hour(s)---- Dispensed: 1000 mL bagStop Site: #1 left hand14:50 1PIrma tompkins R.N.Start ROCEPHIN (1GM/50ML) [IVPB] Rocephin (1gm/50mL) IVPB 425423:03 04/19/2020 (CEFTRIAXONE SODIUM) mg with Dextrose 50 ml spike Damian Brock RN Dose: 1 gm IVPB (D5W)---- Rate: 100 mL/hr over 30 minute(s)Stop Dispensed: 50 mL bag13:33 04/19/2020 Site: #1 left handPutIrma jiménez R.N.Start CLINDAMYCIN [IVPB] Clindamycin IVPB 600 mg (NOW14:11 04/19/2020 Dose: 600 mg IVPB x1)Yomi Brock RN Rate: 100 mL/hr over 30 minute(s)---- Dispensed: 50 mL bagStop Site: #1 left hand14:45 1PIrma tompkins R.N. Name Value Range Interpretation Code Description Data [place]annah rce(s) Supporting Document(s) ID Date Data Source [id number] 04/19/2020 12:17:00 PM EST [facility] 1 General Instructions [facility] Emergency Department [address] [place] [address] Phone #: ext- [phone] 04/19/2020 12:03 Patient: YUDELKA BELTRAN Sex: M : 1965 Age: 54yCellulitis of the right lower leg, right ankle and right foot.INSTRUCTIONSNo strenuous activity until better. Rest at home for two days. Do not work for four days.Do not smoke. No alcohol.Warnings: Further evaluation is necessary. It is very important to follow up with a healthcare provider.GENERAL WARNINGS: Return or contact your physician immediately if your condition worsens orchanges unexpectedly, if not improving as expected, or if other problems arise. Specifically return if pain,vomiting, bleeding, breathing difficulty or fever.Your Current Medications: Your current home medications have been reviewed.CONTINUE TAKING THE FOLLOWING MEDICATIONS:CeleXA Oral : Tablet 40 mg, daily.Meloxicam Oral.Synthroid Oral : Tablet 100 mcg, daily.Prescription Medications:clindamycin HCl 300 mg capsule Take 1 capsule every eight hours as directed for 10 days -- for cellulitis.Dispense 30 capsule. Refills: 0. Substitution permitted.Pharmacy - [facility] [phone] ; [place] [address]. .Understanding of the discharge instructions verbalized by patient. Expected course of illness, dischargeinstructions, activity level, prescriptions x1, follow-up appointment and risks and benefits of treatmentreviewed with patient and understanding verbalized. Agrees to plan of care.Follow-up with: [facility], , , [address] [place] [address], , , , Follow up in two days even if well and for wound check. Call for the next available appointment. Reasonfor referral: evaluation. Summary of care provided to patient via paper. ADDITIONAL INFORMATIONCellulitisCellulitis is an infection of the deep layers of skin. A break in the skin, such as a cut or scratch, can let 2 General Instructions [facility] Emergency Department [address] [place] [address] Phone #: ext- [phone] 04/19/2020 12:03 Patient: YUDELAK BELTRAN Sex: M : 1965 Age: 54ybacteria under the skin. If the bacteria get to deep layers of the skin, it can be serious. If not treated,cellulitis can get into the bloodstream and lymph nodes. The infection can then spread throughout thebody. This causes serious illness.Cellulitis causes the affected skin to become red, swollen, warm, and sore. The reddened areas havea visible border. An open sore may leak fluid (pus). You may have a fever, chills, and pain.Cellulitis is treated with antibiotics taken for 7 to 10 days. An open sore may be cleaned and coveredwith cool wet gauze. Symptoms should get better 1 to 2 days after treatment is started. Make sure totake all the antibiotics for the full number of days until they are gone. Keep taking the medicine even ifyour symptoms go away.Home careFollow these tips: Limit the use of the part of your body with cellulitis. If the infection is on your leg, keep your leg raised while sitting. This helps reduce swelling. Take all of the antibiotic medicine exactly as directed until it is gone. Don't miss any doses, especially during the first 7 days. Don't stop taking the medicine when your symptoms get better. Keep the affected area clean and dry. Wash your hands with soap and clean, running water before and after touching your skin. Anyone else who touches your skin should also wash his or her hands. Don't share towels.Follow-up careFollow up with your healthcare provider, or as advised. If your infection doesn't go away on the firstantibiotic, your healthcare provider will prescribe a different one.When to seek medical adviceCall your healthcare provider right away if any of these occur: Red areas that spread Swelling or pain that gets worse Fluid leaking from the skin (pus) Fever higher of 100.4 F (38.0 C) or higher after 2 days on antibiotics [id number] [employer]. [address] [place] [address]. All rights reserved. 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 Always follow your healthcare professional's instructions. You have been given the following additional information: Cellulitis No strenuous activity until better. Rest at home for two days. Do not work for four days.(Electronically signed by ELSIE Arndt 04/19/2020 15:35) Name Value Range Interpretation Code Description Data [place]annah rce(s) Supporting Document(s) ID Date Data Source [id number] 04/19/2020 12:17:00 PM EST [facility] 1 Clinical Report - Nurses [facility] Emergency Department [address] [place] [address] Phone #: ext- [phone] 04/19/2020 12:03 Patient: YUDELKA BELTRAN Sex: M : 1965 Age: 54yTRIAGEArrived by private vehicle. Historian: patient. Unaccompanied. ( [facility] agocomplaining of left back pain that goes down his leg, he states they only gave him Tylenol and sent home itstill hurts and it is hard to walk, also has areas on abd and has rash and open area on right leg).Acuity: LEVEL 4.Chief Complaint: SKIN RASH and SKIN LESION.Alert. No acute distress.Reported as located on the right leg (abd). Onset. (1 week). It is described as painful. The patient hashad muscle aches.Treatment [employer] MANAGER:Took Tylenol. (0800).SEPSIS SCREEN: SIRS SCREEN NEGATIVE. SEPSIS SCREEN NEGATIVE. No suspected or confirmedsigns of infection present. --12:13 04/19/20 Ana Paula Barroso R.N.12:05 04/19/20. BP: 183/94. MAP: 123. HR: 58. RR: 16. O2 saturation: 97%. Temp: 98.4 F. Pain levelnow: 07/22. --12:13 04/19/20 Ana Paula Barroso R.N.Weight: 136 kg stated. Height/Length: 67 inches Per Patient. BMI: 47. --12:04 04/19/20 Ana Paula Barroso R.N.MedicationsSynthroid Oral (Tablet 100 mcg), daily. --12:10 04/19/20 Ana Paula Barroso R.N. CeleXA Oral (Tablet 40 mg), daily. --12:10 04/19/20 Ana Paula Barroso R.N. Meloxicam Oral. --12:10 04/19/20 Ana Paula Barroso R.N.AllergiesNone. --12:09 04/19/20 Ana Paula Barroso R.N.PROBLEMS:Pulmonary Embolism.DVT - Deep Venous Thrombosis.Unspecified emotional disorder.Arthritis.TBI. --12:12 04/19/20 Ana Paula Barroso R.N.ADDITIONAL SURGERIES:Foot surgery. --12:12 04/19/20 Ana Paula Barroso R.N. 2 Clinical Report - Nurses [facility] Emergency Department [address] [place] [address] Phone #: ext- [phone] 04/19/2020 12:03 Patient: YUDELKA BELTRAN Sex: M : 1965 Age: 54y History PAST MEDICAL HX: Immunizations: up-to-date. SOCIAL HX: Never smoker. No alcohol use or drug use. The patient was offered HIV testing but declined and hepatitis C testing but declined. The patient has not traveled outside the [place] Infectious disease exposure: No infectious disease exposure. The patient was not exposed to Coronavirus. Patient is not a known carrier of tuberculosis, hepatitis, HIV, MRSA or VRE. Patient is not a known carrier of CRE. SELF HARM ASSESSMENT: Self harm assessment was performed. The patient answered "no" to the question(s) "Have you recently felt down, depressed, or hopeless?", "Do you have thoughts of harming or killing yourself?", "Do you have a plan for harming or killing yourself?", "Have you recently had thoughts about harming or killing others?", "Do you have any dangerous items in your possession?", "Have you noticed less interest or pleasure in doing things?", "Are you here because you tried to hurt yourself?" and "Have you ever tried to hurt yourself before today?". ABUSE ASSESSMENT: Abuse assessment. Abuse denied. No suspicion of abuse. No report of abuse. NUTRITIONAL RISK ASSESSMENT: The nutritional risk assessment revealed no deficiencies. FUNCTIONAL ASSESSMENT: Functional assessment: no impairments noted. LEARNING NEEDS ASSESSMENT: The learning needs assessment revealed no barriers. FALL RISK ASSESSMENT: Fall risk assessment completed. No risk factors identified. SKIN INTEGRITY ASSESSMENT: Skin integrity risk assessment completed. No skin integrity risk identified. --12:13 04/19/20 Ana Paula Barroso R.N. Interventions Identification band on patient. To treatment room. --12:13 04/19/20 Ana Paula Barroso R.N.PHYSICAL ASSESSMENTAmbulatory to room. ( pt has three healed sore, small, on his abdomen he voices has had for a month,right lower leg has multiple sores and is a reddened color).GENERAL / NEURO / PSYCH: Alert. Appears in pain. Oriented X 4.HEENT: Pupils equal, round and reactive to light. Mucous membranes are pink.RESPIRATORY: Respirations not labored. Breath sounds within normal limits.CVS: Capillary refill less than 2 seconds. Pulses within normal limits.GI / : Abdomen nontender.SKIN: Skin is intact, warm and dry. Skin rash on the right leg and right ankle. Normal skin turgor.--12:04/19/20 Yomi Brock RN ( pt c/o left lower back pain for the past 3-4 weeks and the pain goes down his left leg). --12:26 04/19/20 3 Clinical Report - Nurses [facility] Emergency Department [address] [place] [address] Phone #: ext- [phone] 04/19/2020 12:03 --------- Patient: YUDELKA BELTRAN Sex: M : 1965 Age: 54y Yomi Brock RN.NURSING PROGRESS NOTESPatient gowned. Reassurance given. Two patient identifiers checked. Call light placed in reach. Siderails up x 2. Bed placed in lowest position. Brakes of bed on. Patient ready for evaluation. --12: Ana Paula Barroso R.N. 12:49 04/19/2020 Site #1 started via IV in the left hand with an 20g angiocath, with aseptic technique and good blood return; two attempts. Blood drawn: rainbow set and green tube(s). Labeled in the presence of the patient and sent to the lab. Saline lock flushed with 10 mL saline. --12:49 04/19/20 Yomi Brock RN 12:58 04/19/2020 Started bag #1 1000 mL IV Fluids NS; at 1000 mL/hr over 1 hour(s) via site #1 via IV pump. Allergies verified and confirmed 5 rights. IV patency established. IV site checked: no pain, redness, or swelling. IV flushed thoroughly pre- and post-medication administration. Information reviewed with patient including reason for taking this medication. Verbalizes understanding. --12:58 04/19/20 Yomi Brock RN 13:03 04/19/2020 Started 1 gm of ROCEPHIN (1GM/50ML) (cefTRIAXone Sodium) IVPB in bag #1 50 mL; at 100 mL/hr over 30 minute(s) via site #1. via IV pump. Allergies verified and confirmed 5 rights. IV patency established. IV site checked: no pain, redness, or swelling. IV flushed thoroughly pre- and post-medication administration. Information reviewed with patient including reason for taking this medication. Verbalizes understanding. --13:03 04/19/20 Yomi Brock RN Wound to right lower leg swabbed for culture. --14:08 04/19/20 Yomi Brock RN 13:33 04/19/2020 ROCEPHIN (1GM/50ML) IVPB via IV site #1 Discontinued: bag #1 completed. Total amount infused: 50 mL. IV patency established. IV site checked: no pain, redness, or swelling. IV flushed thoroughly. --15:06 04/19/20 Irma Rivera R.N. 14:11 04/19/2020 Started 600 mg of Clindamycin IVPB in bag #1 50 mL; at 100 mL/hr over 30 minute(s) via site #1. via IV pump. Allergies verified and confirmed 5 rights. IV patency established. IV site checked: no pain, redness, or swelling. IV flushed thoroughly pre- and post-medication administration. Information reviewed with patient including reason for taking this medication. Verbalizes understanding. --14:11 04/19/20 Yomi Brock RN 14:45 04/19/2020 Clindamycin IVPB via IV site #1 Discontinued: bag #1. Total amount infused: 50 mL. IV patency established. IV site checked: no pain, redness, or swelling. IV flushed thoroughly. --15:06 2/5/21 Irma Rivera R.N. late entry - 14:50 04/19/20. Patient fit with new crutches. Crutch training performed by nurse; the patient demonstrated proper use. --15:07 04/19/20 Irma Rivera R.N. 14:50 04/19/2020 IV Fluids NS via IV site #1 Discontinued: bag #1 STOPPED upon discharge. Total amount infused: 600 mL. IV patency established. IV site checked: no pain, redness, or swelling. IV flushed 4 Clinical Report - Nurses [facility] Emergency Department [address] [place] [address] Phone #: ext- [phone] 04/19/2020 12:03 Patient: YUDELKA BELTRAN Sex: M : 1965 Age: 54y thoroughly. --15:06 04/19/20 Irma Rivera R.N.DISPOSITION / DISCHARGE 14:55 04/19/20. BP: 149/81. MAP: 103. HR: 85. RR: 18. O2 saturation: 98% on room air. Temp: 97.7 F (oral). Pain level now: 0/10. --15:07 04/19/20 Irma Rivera R.N. Departure time: late entry - 14:55 04/19/2020. Condition at departure: stable. No learning barriers present. Discharge instructions provided and reviewed with the patient. Reviewed warnings (please see paper copy). Reviewed medication(s) side effects, precautions, dosing and course information. Prescription(s) sent electronically to pharmacy (Clindamycin). Reviewed wound care instructions. Activity restrictions reviewed. Work note given. Patient verbalized understanding. Written instructions provided in Austrian. The patient was discharged by the physician research study assistant. He was discharged home and unaccompanied at time of discharge. He left on crutches and via private vehicle. Hr Director driving. --15:12 04/19/20 Irma Rivera R.N. 14:50 04/19/2020 Site #1 removed upon discharge. Bandage applied (2x2 and tape no bleeding noted pt tolerated well, clean dry and intact upon d/c.). --15:12 04/19/20 rIma Rivera R.N.Locked/Released at 04/19/2020 15:12 by Irma Rivera R.N. Name Value Range Interpretation Code Description Data Savannah rce(s) Supporting Document(s) ID Date Data Source [id number] 04/19/2020 12:17:00 PM EST [facility] 1 Clinical Report - Physicians/Mid Levels [facility] Emergency Department [address] [place] [address] Phone #: ext- [phone] 04/19/2020 12:03 Patient: YUDELKA BELTRAN Sex: M : 1965 Age: 54y Time Seen: 12:11 04/19/2020. Arrived- By private vehicle. Historian- patient. Disposition decision: 14:19 04/19/2020.HISTORY OF PRESENT ILLNESS Chief Complaint: SKIN RASH. This started about 2 weeks ago; Seen at [facility] x 2 weeks ago for L sided back pain radiating into L calf, then developed increasing redness, pain, swelling to R lower leg, ankle region, states he has had cellulitis there before. Hx prior DVT and PE. No fever. Back pain has resolved but still has pain in L posterior calf. Not itchy. It is described as painful and burning. It has been located on the right knee, leg, ankle and foot and left leg. It has not been generalized in location or located on the right upper extremity or in the axilla. No rash to face. Not located on the scalp or left upper extremity or in perianal area. No cause has been identified. No recent medication, insect bite or food exposure. Was not recently exposed to poison deja. Similar symptoms previously. Patient has had similar symptoms several times. Recent medical care: The patient was seen recently at another facility in the emergency department.REVIEW OF SYSTEMSNo fever, chills, sore throat, cough or difficulty breathing. No hoarseness, lump in throat, enlarged lymphnodes, headache or eye irritation. No chest pain, abdominal pain, nausea, diarrhea or difficulty withurination. No genital lesions, joint pain or vomiting.PAST HISTORYSee nurses notes. Tetanus immunization status is up-to-date. Problems: Pulmonary Embolism. DVT - Deep Venous Thrombosis. Unspecified emotional disorder. Arthritis. TBI. Additional Surgeries: Foot surgery. Medications: Meloxicam Oral. CeleXA Oral (Tablet 40 mg), daily. Synthroid Oral (Tablet 100 mcg), daily. Allergies: None. 2 Clinical Report - Physicians/Mid Levels [facility] Emergency Department [address] [place] [address] Phone #: ext- [phone] 04/19/2020 12:03 Patient: YUDELKA BELTRAN Sex: M : 1965 Age: 54ySOCIAL HISTORYNever smoker. No alcohol use or drug use. No recent travel.ADDITIONAL NOTESThe nursing notes have been reviewed with agreement regarding the chief complaint, HPI, ROS, PMH andpatient medications and allergies.PHYSICAL EXAMVital Signs: 04/19/2020 12:05 BP: 183/94. MAP: 123. HR: 58. RR: 16. O2 saturation: 97%. Temp: 98.4 F.Pain level now: 5/10. Have been reviewed as abnormal and appear to be correct. Hypertensive. Meanarterial pressure- high. Bradycardic. Respiratory rate normal. Temperature normal. Oxygen saturationnormal.Appearance: Alert. Oriented X3. No acute distress.Eyes: Pupils equal, round and reactive to light. Conjunctivae and eyelids normal.ENT: Ears normal. Nose normal. Pharynx normal.Neck: Neck supple.CVS: Normal heart rate and rhythm. Heart sounds normal.Respiratory: No respiratory distress. Breath sounds normal. Chest nontender.Abdomen: Nontender. No organomegaly.Skin: Skin warm and dry. Normal skin color. Normal skin turgor. Cellulitis to right leg, right ankle andright foot (several small ovoid superficial lesions, open wounds anterior R lower leg). Rash present on theright leg, ankle and foot. The rash is macular and erythematous. There is warmth, tenderness andswelling.Extremities: Moderate right-sided and mild left-sided calf tenderness.Neuro: Oriented X 3. No motor deficit. No sensory deficit.LABS, X-RAYS, AND EKGRt Tib/Fib X-ray: (NAD). Technique: good. The X-rays were independently viewed by me andinterpreted contemporaneously by me. Interpretation time: 14:21 04/19/2020.Rt Ankle X-ray: (NAD). Technique: good. The X-rays were independently viewed by me and interpret edcontemporaneously by me. Interpretation time: 14:04/19/2020.Rt Foot X-ray: (NAD). Technique: good. The X-rays were independently viewed by me and interpretedcontemporaneously by me. Interpretation time: 14:21 04/19/2020.Lower Extremity Sonography: No DVT, edema R calf. Study type: utilized duplex sonography. Theexam was performed by a special effects technician. The study was independently viewed by me and interpreted by theradiologist and contemporaneously by me. Interpretation time: 13:45 04/19/2020.Laboratory Tests: Laboratory tests have been ordered, with results reviewed and considered in themedical decision making process. CBC w Diff: (KOJO: 04/19/2020 12:46) ( MsgRcvd 04/19/2020 13:57) Final results Test Result Flag Units (Reference) CBC W/AUTOMATED DIFF COMPLETE BLOOD COUNT WBC 8.7 10/uL (4.2 - 11.0) 3 Clinical Report - Physicians/Mid Levels [facility] Emergency Department [address] [place] [address] Phone #: ext- [phone] 04/19/2020 12:03 Patient: YUDELKA BELTRAN Sex: M : 1965 Age: 54y RBC 4.94 10/uL (4.50 - 6.30) HEMOGLOBIN 14.3 g/dL (14.0 - 16.0) HEMATOCRIT 43.7 % (41.0 - 51.0) MCV 88.5 fL (80.0 - 94.0) MCH 28.9 pg (27.0 - 34.0) MCHC 32.7 g/dL (31.0 - 36.0) RDW 14.4 % (11.5 - 14.8) PLATELETS 265 10/uL (150 - 450) MPV 10.1 fL (7.4 - 10.4) NEUT 46.8 % (37.0 - 80.0) LYMPH 40.6 H % (25.0 - 40.0) MONO 10.0 H % (3.0 - 8.0) EOS 1.7 % (0.0 - 7.0) BASO 0.7 % (0.0 - 2.0) %IG 0.2 H % (0.0 - 0.0) %NRBC 0.0 % (0.0 - 0.0) #NEUT 4.07 10/uL (2.00 - 6.90) #LYMPH 3.53 H 10/uL (0.60 - 3.40) #MONO 0.87 10/uL (0.00 - 0.90) #EOS 0.15 10/uL (0.00 - 0.70) #BASO 0.06 10/uL (0.00 - 0.20) #IG 0.02 10/uL (0.00 - 0.10) #NRBC 0.00 10/uL (0.00 - 0.00) MANUAL DIFF NOT INDICATED RBC MORPH NOT INDICATEDCMP: (KOJO: 04/19/2020 12:46) ( MsgRcvd 04/19/2020 14:15) Final results Test Result Flag Units (Reference) COMPREHENSIVE METABOLIC PANEL COMPREHENSIVE METABOLIC PANEL SODIUM 140 mEq/L (134 - 153) POTASSIUM 3.8 mEq/L (3.6 - 5.0) CHLORIDE 105 mEq/L (98 - 107) CO2 26 MEQ/L (22 - 30) GLUCOSE 107 H MG/DL (70 - 99) BUN 16 MG/DL (7 - 21) CREATININE 0.9 MG/DL (0.7 - 1.5) BUN/CREAT 18 (8 - 27) TOTAL PROTEIN 7.0 G/DL (6.3 - 8.2) ALBUMIN 3.9 G/DL (3.9 - 5.0) GLOBULIN 3.1 GM/DL (2.4 - 3.2) A/G RATIO 1.3 (0.8 - 2.0) CALCIUM 9.1 MG/DL (8.4 - 10.2) TOTAL BILI <0.7 MG/DL (0.2 - 1.3) ALKALINE PHOS 47 U/L (38 - 126) SGOT/AST 29 U/L (5 - 40) SGPT/ALT 26 U/L (7 - 56) ANION GAP 9.0 mmol/L (8.0 - 16.0) AGE 54 yrs NON-AA GFR >60 mL/min AFR AMER GFR >60 mL/min Male GFR Interprentation 20-49 yrs >60 mL/min Dtmtxg28-95 yrs >56 mL/min Normal 60-69 yrs >49 mL/min Normal 70-79yrs>42 mL/min Normal 80 and above >35 mL/min Normal Female GFRInterpretation 20-39 yrs >60 mL/min Normal 40-49 yrs >58 mL/minNormal 50-59 yrs >51 mL/min Normal 60-69 yrs >45 mL/min Myotlb26-17 yrs >39 mL/min Normal 80 and above >32 mL/min NormalLactic Acid: (KOJO: 04/19/2020 12:46) ( MsgRcvd 04/19/2020 13:25) Final results 4 Clinical Report - Physicians/Mid Levels [facility] Emergency Department [address] [place] [address] Phone #: ext- [phone] 04/19/2020 12:03 Patient: YUDELKA BELTRAN Sex: M : 1965 Age: 54y Test Result Flag Units (Reference) LACTIC ACID 2.7 H MMOL/L (0.2 - 2.2) PT/PTT: (KOJO: 04/19/2020 12:46) ( MsgRcvd 04/19/2020 13:48) Final results Test Result Flag Units (Reference) PROTIME 13.6 SECONDS (11.0 - 15.5) INR 0.99 (0.93 - 1.23) PTT 26.0 SECONDS (24.8 - 36.7) \\BLDo\\INR INTERPRETATION\\BLDx\\ Therapeutic range for Coumadin and related oral anticoagulants. -International Normalized Ratio (INR): 2.0 - 3.0 for Venous Thrombosis, Pulmonary Embolus, Tissue heart valves, Acute IA Atrial Fibrillation, Valvular heart disease and recurrent Systemic Embolism. -International Normalized Ratio (INR): 2.5 - 3.5 for Mechanical Prosthetic valve..PROGRESS AND P ROCEDURESDisposition: Discharged home in good and improved condition.Discharge decision based on the following: patient's condition is improved; patient is ambulatory; patient isactive; patient's pain is controlled; patient's exam is improved; minimally abnormal test results; improvingcondition on repeat evaluation; social support is adequate; transportation is available; follow-up isavailable; clinical impression is consistent with outpatient treatment.CLINICAL IMPRESSION Cellulitis of the right lower leg, right ankle and right foot.INSTRUCTIONS No strenuous activity until better. Rest at home for two days. Do not work for four days. Do not smoke. No alcohol. Warnings: Further evaluation is necessary. It is very important to follow up with a healthcare provider. GENERAL WARNINGS: Return or contact your physician immediately if your condition worsens or changes unexpectedly, if not improving as expected, or if other problems arise. Specifically return if pain, vomiting, bleeding, breathing difficulty or fever. Your Current Medications: Your current home medications have been reviewed. CONTINUE TAKING THE FOLLOWING MEDICATIONS: CeleXA Oral : Tablet 40 mg, daily. Meloxicam Oral. Synthroid Oral : Tablet 100 mcg, daily. Prescription Medications: 5 Clinical Report - Physicians/Mid Levels [facility] Emergency Department [address] [place] [address] Phone #: ext- [phone] 04/19/2020 12:03 Patient: YUDELKA BELTRAN Sex: M : 1965 Age: 54y clindamycin HCl 300 mg capsule Take 1 capsule every eight hours as directed for 10 days -- for cellulitis. Dispense 30 capsule. Refills: 0. Substitution permitted. Pharmacy - [facility] [id number] [address] ; [place] [address]. . Understanding of the discharge instructions verbalized by patient. Expected course of illness, discharge instructions, activity level, prescriptions x1, follow-up appointment and risks and benefits of treatment reviewed with patient and understanding verbalized. Agrees to plan of care. Follow-up with: EMERGENCY ROOM [facility], , , [address] [place] [address], , , , Follow up in two days even if well and for wound check. Call for the next available appointment. Reason for referral: evaluation. Summary of care provided to patient via paper.(Electronically signed by ELSIE Arndt 04/19/2020 15:35) Name Value Range Interpretation Code Description Data Savannah rce(s) Supporting Document(s) ID Date Data Source [id number] 04/19/2020 12:17:00 PM [facility] Addenda for YUDLEKA BELTRAN VisitID: [id number] Date: 7:58Pt wound culture growing staph auerus, pt was d/c on Clindamycin PO which is sensitive; [facility], no further intervention required.(Electronically signed by Irma Rivera R.N. - 04/23/2020 7:58) Name Value Range Interpretation Code Description Data Savannah rce(s) Supporting Document(s) ID Date Data Source [id number] 04/22/2020 10:45:00 AM EST ROBERT ([facility]) Name Value Range Interpretation Code Description Data Savannah rce(s) Supporting Document(s) Hemoglobin A1c/Hemoglobin.total in Blood 6.7 % normal Hemoglobin a1C SUNMAN ([facility]) estimated average glucose 146 mg/dL 60-110 Above high norm al Estimated Average Glucose [facility]) ID Date Data Source [id number] 04/22/2020 10:45:00 AM EST ROBERT ([facility]) Name Value Range Interpretation Code Description Data Savannah rce(s) Supporting Document(s) total 25(oh) vitamin D 16.9 NG/mL 30.0-100.0 Below low normal T otal 25(Oh) Vitamin D [facility]) ID Date Data Source [id number] 04/22/2020 10:45:00 AM EST ROBERT ([facility]) Name Value Range Interpretation Code Description Data Savannah rce(s) Supporting Document(s) thyroid stimulating hormone 1.670 uIU/mL 0.358-3.740 normal Thyroid Stimulating Hormone [facility]) free T4 0.93 NG/dL 0.76-1.46 normal Free T4 [facility]) ID Date Data Source [id number] 04/22/2020 10:45:00 AM [facility] Name Value Range Interpretation Code Description Data Savannah rce(s) Supporting Document(s) triglycerides level 404 mg/dL <150 Above high normal Triglycer ides Level ROBERT ([facility]) cholesterol risk ratio <5 normal Cholesterol R isk Ratio ROBERT ([facility]) non-HDL-C 161 mg/dL normal Non-hdl-c ROBERT ([facility]) HDL cholesterol 47 mg/dL >40 normal HDL Cholesterol ATHE ([facility]) cholesterol level 208 mg/dL <200 Above high normal Cholesterol Level ROBERT ([facility]) ID Date Data Source [id number] 04/22/2020 10:45:00 AM EST ROBERT ([facility]) Name Value Range Interpretation Code Description Data Savannah rce(s) Supporting Document(s) glucose, fasting 125 mg/dL 70-100 Above high normal Glucose, Fas ting ROBERT ([facility]) blood urea nitrogen 12 mg/dL 7-18 normal Blood Urea Nitro gen ROBERT ([facility]) potassium serum 3.9 mEq/L 3.5-5.1 normal Potassium Serum ATHE ([facility]) creatinine for GFR 1.09 mg/dL 0.70-1.30 normal Creatinine for GF R ROBERT ([facility]) glomerular filtration rate > 60.0 >56 normal Glomerula r Filtration Rate ROBERT ([facility]) sodium level 141 mEq/L 136-145 normal Sodium Level ROBERT ([facility]) carbon dioxide level 28 mEq/L 21-32 normal Carbon Dioxide Level ROBERT ([facility]) chloride level 105 mEq/L 98-107 normal Chloride Level SUNMAN ([facility]) calcium level 9.1 mg/dL 8.5-10.1 normal Calcium Level ROBERT ( [facility]) anion gap 8 mEq/L 8-16 normal Anion Gap ROBERT ([facility]) alkaline phosphatase 56 U/L 45-117 normal Alkaline Phosph atase ROBERT ([facility]) AST/SGOT 21 U/L 7-37 normal AST/SGOT ROBERT ([facility]) bilirubin,total 0.4 mg/dL 0.2-1.0 normal Bilirubin,total ATH NA ([facility]) total protein 7.5 gm/dL 6.4-8.2 normal Total Protein ROBERT ( [facility]) ALT/SGPT 43 U/L 12-78 normal ALT/SGPT ROBERT ([facility]) albumin/globulin ratio normal Albumin/globu med Ratio ROBERT ([facility]) albumin 3.7 gm/dL 3.2-5.2 normal Albumin ROBERT ([facility]) ID Date Data Source [id number] 04/22/2020 10:45:00 AM EST ROBERT ([facility]) Name Value Range Interpretation Code Description Data Savannah rce(s) Supporting Document(s) white blood count 9.2 10 4.0-10.0 normal White Blood Count ROBERT ([facility]) red blood count 5.18 10 4.30-6.10 normal Red Blood Count ATHE ([facility]) hematocrit 47.0 % 42.0-52.0 normal Hematocrit ROBERT ([facility]) hemoglobin 14.9 g/dL 13.5-17.5 normal Hemoglobin ROBERT ([facility]) mean corpuscular volume 90.7 fL 80.0-96.0 normal Mean Corpusc ular Volume ROBERT ([facility]) mean corpuscular hemoglobin 28.8 pg 27.0-33.0 normal Mean Corpuscular Hemoglobin ROBERT ([facility]) platelet count, automated 261 10 150-450 normal Platelet C ount, Automated ROBERT ([facility]) red cell distribution width 14.5 % 11.5-14.5 normal Red Cell Distribution Width ROBERT ([facility]) mean corpuscular HGB conc 31.7 g/dL 32.0-36.5 Below low rodo l Mean Corpuscular HGB Conc ROBERT ([facility]) neutrophils % 52.9 % 36.0-66.0 normal Neutrophils % ROBERT ( [facility]) lymph % 35.5 % 24.0-44.0 normal Lymph % ROBERT ([facility]) mono % 7.5 % 0.0-5.0 Above high normal Mcdonald % ROBERT ([facility]) baso % 0.8 % 0.0-1.0 normal Baso % SUNMAN ([facility]) immature granulocyte % 0.4 % 0-3.0 normal Immature Gran ulocyte % ROBERT ([facility]) eos % 2.9 % 0.0-3.0 normal Eos % ROBERT ([facility]) nucleated red blood cell % 0.0 % 0-0 normal Nucleated Red Blood Cell % ROBERT ([facility]) neutrophils # 4.9 10 1.5-8.5 normal Neutrophils # ROBERT ( [facility]) eos # 0.3 10 0.0-0.5 normal Eos # ROBERT ([facility]) lymph # 3.3 10 1.5-5.0 normal Lymph # ROBERT ([facility]) mono # 0.7 10 0.0-0.8 normal Mcdonald # ROBERT ([facility]) baso # 0.1 10 0.0-0.2 normal Baso # ROBERT ([facility]) ID Date Data Source [id number] 04/22/2020 10:06:00 [place] [address] PHONE: [phone] FAX: [phone] Name .................. : DEVIN Kang Acct Number.................. : [id number] ROOM. ................. : TR-08 MR Number ................... : [id number] Stay type ............. : E/R Discharge Date......... ... : 04/19/20 Admit Date ......... : 04/19/20 Admit Phys .................... : LETICIA JILL Date of ....... : 1965 Family Phys ................... : NO PCP Phone .................. : [phone] Age ................................ : 54 Film# .................. .:[id number] Sex ................................. : M Unsigned transcriptions are preliminary reports and do not represent a medical or legal document TIBIA-FIBULA AP & LAT RT [id number] COMPLETE:04/19/20 19:00 [facility] Reason(s): pain, swelling redness r lower leg, ankle and foot ? OM RIGHT TIBIA AND FIBULA SERIES: FINDINGS: There is normal alignment and position of the bones of the right lower leg. No bony abnormalities are identified. IMPRESSION: Unremarkable right lower leg. Electronically Reviewed and Signed By Alan Delgado MD , 04/22/20 10:06, [facility] Transcribe Initials: YOANNA , Transcribe Date: 04/19/20 21:48, Dictation Date: Copy for: LETICIA Whitaker via fax Copy for: [place]PT [place] [facility] Copy for: 710 MED REC DISCHARGED Page 1 of 1 Name Value Range Interpretation Code Description Data Savannah rce(s) Supporting Document(s) ID Date Data Source [id number] 04/22/2020 10:06:00 AM EST [facility] [address] [place] [address] PHONE: [phone] FAX: [phone] Name .................. : DEVIN Kang Acct Number.................. : [id number] ROOM. ................. : TR-08 MR Number ................... : [id number] Stay type ............. : E/R Discharge Date......... ... : 04/19/20 Admit Date ......... : 04/19/20 Admit Phys .................... : LETICIA JILL Date of ....... : 1965 Family Phys ................... : NO PCP Phone .................. : [phone] Age ................................ : 54 Film# .................. .:[id number] Sex ................................. : M Unsigned transcriptions are preliminary reports and do not represent a medical or legal document [place]PLETE [place] [id number] COMPLETE:04/19/20 19:00 [facility] Reason(s): pain, redness, swelling R lower leg, ankle, foot, ? OM RIGHT ANKLE X-RAY: FINDINGS: There may be minimal inferior calcaneal spurring. No fractures are seen. Bone mineralization is intact. The articular surfaces are unremarkable. IMPRESSION: Inferior calcaneal spurring. Electronically Reviewed and Signed By Alan Delgado MD , 04/22/20 10:06, [facility] Transcribe Initials: YOANNA , Transcribe Date: 04/19/20 21:47, Dictation Date: Copy for: LETICIA Whitaker via fax Copy for: EMERGENCY DEPT via modem Copy for: 710 MED REC DISCHARGED Page 1 of 1 Name Value Range Interpretation Code Description Data Savannah rce(s) Supporting Document(s) ID Date Data Source [id number] 04/22/2020 10:06:00 AM EST [facility] [address] [place] [address] PHONE: [phone] FAX: [phone] Name .................. : DEVIN Kang Acct Number.................. : [id number] ROOM. ................. : TR08 Number ................... : [id number] Stay type ............. : E/R Discharge Date......... ... : 04/19/20 Admit Date ......... : 04/19/20 Admit Phys .................... : LETICIA JILL Date of ....... : 1965 Family Phys ................... : NO PCP Phone .................. : [phone] Age ................................ : 54 Film# .................. .:[id number] Sex ................................. : M Unsigned transcriptions are preliminary reports and do not represent a medical or legal document FOOT COMPLETE-[address] [place] [id number] COMPLETE:04/19/20 19:00 [facility] 9738 Reason(s): pain, redness, swelling R lower ankle, foot, lower leg RIGHT FOOT X-RAY: CLINICAL HISTORY: Redness, swelling right lower ankle, foot and lower leg. FINDINGS: There is a hallux valgus deformity. There is mild joint space narrowing at the first MTP joint consistent with degenerative disease. No fractures are seen. The articular surfaces are otherwise intact. IMPRESSION: Hallux valgus deformity with findings at the fi rst MTP joint consistent with degenerative disease. Electronically Reviewed and Signed By Alan Delgado MD , 04/22/20 10:06, [facility] Transcribe Initials: YAONNA , Transcribe Date: 04/19/20 21:41, Dictation Date: Copy for: LETICIA Whitaker via fax Copy for: EMERGENCY DEPT via modem Copy for: 710 MED REC DISCHARGED Page 1 of 1 Name Value Range Interpretation Code Description Data Savannah rce(s) Supporting Document(s) ID Date Data Source [id number] 04/22/2020 10:04:00 [place] [address] PHONE: [phone] FAX: [phone] Name .................. : DEVIN SAMUEL Acct Number.................. : [id number] ROOM. ................. : TR-08 Number ................... : [id number] Stay type ............. : E/R Discharge Date......... ... : 04/19/20 Admit Date ......... : 04/19/20 Admit Phys .................... : LETICIA JILL Date of ....... : 1965 Family Phys ................... : NO PCP Phone .................. : [phone] Age ................................ : 54 Film# .................. .:[id number] Sex ................................. : M Unsigned transcriptions are preliminary reports and do not represent a medical or legal document DOPPLER VENOUS BILAT LEG [id number] COMPLETE:04/19/20 12:35 3700 Reason(s): posterior leg pain, redness, swelling R lower leg, prior DVT BILATERAL LOWER EXTREMITY VENOUS DUPLEX: CLINICAL HISTORY: Posterior leg pain, redness and swelling right lower leg with prior DVT. FINDINGS: There is edema in the right calf. There is no evidence for deep vein thrombosis. No Forte's cysts are present. IMPRESSION: Edema in the right calf, otherwise normal examination. Electronically Reviewed and Signed By Alan Delgado MD , 04/22/20 10:04, [facility] Transcribe Initials: YOANNA , Transcribe Date: 04/19/20 16:48, Dictation Date: Copy for: LETICIA Whitaker via fax Copy for: EMERGENCY DEPT via mode Copy for: 710 MED REC DISCHARGED Page 1 of 1 Name Value Range Interpretation Code Description Data Savannah rce(s) Supporting Document(s) ID Date Data Source [id number] 04/22/2020 03:23:00 PM EST [facility] Name Value Range Interpretation Code Description Data Savannah rce(s) Supporting Document(s) CULTURE WOUND [facility] spital _CULTURE WOUND_$$[id number] DATE/TIME: 04/22/2020 15:06Culture: CULTURE WOUND Status: FinalIsolate 1 Staphylococcus aureus Flag: A . . . . . . .3Moderate growthBased on susceptibility to oxacillin this isolate would besusceptible to:*Penicillinase-stable penicillins, such as: Cloxacillin, Dicloxacillin, Nafcillin*Beta-lactam combination agents, such as: Amoxicillin- clavulanic acid, Ampicillin-sulbactam, Piperacillin-tazobactam*Oral cephems, such as: Cefaclor, Cefdinir, Cefpodoxime, Cefprozil, Cefuroxime, Cephalexin, Loracarbef*Parenteral cephems, such as: Cefazolin, Cefepime, Cefotaxime, Cefotetan, Ceftaroline, Ceftizoxime, Ceftriaxone, Cefuroxime*Carbapenems, such as: Doripenem, Ertapenem, Imipenem, Meropenem -- Continued on next page --Patient: DEVIN Kang Order: [id number] Page 2Culture: CULTURE WOUND Status: Final ==== Previous result entered on 04/22/2020 07:15 ET Microbiological testing to rule out the presence of possible pathogensis in progress.Aerobic Bacterial Culture: R4Wsmcuw lococcus aureus Flag: APatient: DEVIN Kang Order: [id number] Page 3Culture: CULTURE WOUND Status: Final ====ISOLATE 1 Staphylococcus aureus Isolate 1Antibiotic OTIS IntUnits ug/mL ----Ciprofloxacin S S . . . . . .185-9Clindamycin S S . . . . . .193-3Erythromycin S S . . . . . .233-7Gentamicin S S . . . . . .267-5Levofloxacin S S . . . . . .52329-4Igmnqsmfd S S . . . . . .77147-3Jdwggxnvthfx S S . . . . . .3 1037-5Oxacillin S S . . . . . .383-0Penicillin R R . . . . . .6932-8Quinupristin/Dalfopristin S S . . . . . .80324-7Snvezbgj S S . . . . . .428-3Tetracycline S S . . . . . .496- 0Trimethoprim/Sulfa S S . . . . . .516-5Vancomycin S S . . . . . .524-9P1 Test performed by: Alka Wilmington CLIA #: [id number] [address] [place] [id number] [facility] [id number] Director : Alvin Quinones MD NPI #:Credit Rating Inspector : 04/22/20.0847.XMT.SENT REF 04/22/20.1523.XMT.SENT REF ID Date Data Source [id number] 04/24/2020 06:16:00 PM EST [facility] [address] Name Value Range Interpretation Code Description Data Savannah rce(s) Supporting Document(s) Bacteria identified in Blood by Culture [facility] NO GROWTH AFTER 5 DAYS ID Date Data Source [id number] 04/29/2020 07:52:00 AM [facility] Name Value Range Interpretation Code Description Data Savannah rce(s) Supporting Document(s) CULTURE BLOOD [facility] spital _CULTURE BLOOD_ TEST PERFORM ED AT [address] [address] CLIA# [id number] SEE SCANNED REPORT{ PRELIM ID Date Data Source [id number] 04/26/2020 11:30:00 AM [facility] Name Value Range Interpretation Code Description Data Savannah rce(s) Supporting Document(s) CULTURE BLOOD [facility] spital _CULTURE BLOOD_{ PRELIM TEST PERFORMED AT [address] [address] CLIA# [id number] SEE SCANNED REPORT ID Date Data Source [id number] 04/19/2020 02:15:00 PM [facility] Name Value Range Interpretation Code Description Data Savannah rce(s) Supporting Document(s) COMPREHENSIVE METABOLIC PANEL [facility] COMPREHENSIVE METABOLIC PANEL Sodium [Moles/volume] in Serum or Plasma 140 mEq/L 134 - 153 [facility] Potassium [Moles/volume] in Serum or Plasma 3.8 mEq/L 3.6 - 5.0 [facility] Chloride [Moles/volume] in Serum or Plasma 105 mEq/L 98 - 107 [facility] Carbon dioxide, total [Moles/volume] in Serum or Plasma 26 MEQ/L 22 - 30 [facility] Glucose [Mass/volume] in Serum or Plasma 107 MG/DL 70 - 99 H [facility] BUN 16 MG/DL 7 - 21 [facility] Creatinine [Mass/volume] in Serum or Plasma 0.9 MG/DL 0.7 - 1.5 [facility] BUN/CREAT 18 8 - 27 [facility] Protein [Mass/volume] in Serum or Plasma 7.0 G/DL 6.3 - 8.2 [facility] Albumin [Mass/volume] in Serum or Plasma 3.9 G/DL 3.9 - 5.0 [facility] Globulin [Mass/volume] in Serum by calculation 3.1 GM/DL 2.4 - 3.2 [facility] A/G RATIO 1.3 0.8 - 2.0 [facility] Calcium [Mass/volume] in Serum or Plasma 9.1 MG/DL 8.4 - 10.2 [facility] Bilirubin.total [Mass/volume] in Serum or Plasma <0.7 MG/DL 0.2 - 1.3 [facility] Alkaline phosphatase [Enzymatic activity/volume] in Serum or Plasma 47 U/L 38 - 126 [facility] Aspartate aminotransferase [Enzymatic activity/volume] in Serum or Plasma 29 U/L 5 - 40 [facility] Alanine aminotransferase [Enzymatic activity/volume] in Seru m or Plasma 26 U/L 7 - 56 [facility] Anion gap 3 in Serum or Plasma 9.0 mmol/L 8.0 - 16.0 [facility] AGE 54 yrs [facility] NON-AA GFR >60 mL/min [facility] ital AFR AMER GFR >60 mL/min [facility] Ho spital Male GFR In terprentation 20-49 yrs >60 mL/min Normal 50-59 yrs >56 mL/min Normal 60-69 yrs >49 mL/min Normal 70-79yrs >42 mL/min Normal 80 and above >35 mL/min Normal Female GFR Interpretation 20-39 yrs >60 mL/min Normal 40-49 yrs >58 mL/min Normal 50-59 yrs >51 mL/min Normal 60-69 yrs >45 mL/min Normal 70-79 yrs >39 mL/min Normal 80 and above >32 mL/min Normal ID Date Data Source [id number] 04/19/2020 01:56:00 PM EST [facility] Name Value Range Interpretation Code Description Data Savannah rce(s) Supporting Document(s) CBC W/AUTOMATED DIFF [facility] COMPLETE BLOOD COUNT Leukocytes [#/volume] in Blood by Automated count 8.7 10^3/uL 4.2 - 1 1.0 [facility] Erythrocytes [#/volume] in Blood by Automated count 4.94 10^6/uL 4. 50 - 6.30 [facility] Hemoglobin [Mass/volume] in Blood 14.3 g/dL 14.0 - 16.0 [facility] Hematocrit [Volume Fraction] of Blood by Automated count 43.7 % 4 1.0 - 51.0 [facility] Erythrocyte mean corpuscular volume [Entitic volume] by Auto mated count 88.5 fL 80.0 - 94.0 [facility] Erythrocyte mean corpuscular hemoglobin [Entitic mass] by Automated count 28.9 pg 27.0 - 34.0 [facility] Erythrocyte mean corpuscular hemoglobin concentration [Mass/volume] by Automated count 32.7 g/dL 31.0 - 36.0 [facility] Erythrocyte distribution width [Ratio] by Automated count 14.4 % 11.5 - 14.8 [facility] Platelets [#/volume] in Blood by Automated count 265 10^3/uL 150 - 45 0 [facility] Platelet mean volume [Entitic volume] in Blood by Automated count 10.1 fL 7.4 - 10.4 [facility] Neutrophils/100 leukocytes in Blood by Automated count 46.8 % 37. 0 - 80.0 [facility] Lymphocytes/100 leukocytes in Blood by Manual count 40.6 % 25.0 - 40.0 H [facility] Monocytes/100 leukocytes in Blood by Automated count 10.0 % 3.0 - 8.0 H [facility] Eosinophils/100 leukocytes in Blood by Automated count 1.7 % 0.0 - 7.0 [facility] Basophils/100 leukocytes in Blood by Automated count 0.7 % 0.0 - 2.0 [facility] %IG 0.2 % 0.0 - 0.0 [facility] %NRBC 0.0 % 0.0 - 0.0 [facility] al Neutrophils [#/volume] in Blood by Automated count 4.07 10^3/uL 2.00 - 6.90 [facility] Lymphocytes [#/volume] in Blood by Automated count 3.53 10^3/uL 0.60 - 3.40 H [facility] Monocytes [#/volume] in Blood by Automated count 0.87 10^3/uL 0.00 - 0.90 [facility] Eosinophils [#/volume] in Blood by Automated count 0.15 10^3/uL 0.00 - 0.70 [facility] Basophils [#/volume] in Blood by Automated count 0.06 10^3/uL 0.00 - 0.20 [facility] #IG 0.02 10^3/uL 0.00 - 0.10 [facility] ospital #NRBC 0.00 10^3/uL 0.00 - 0.00 [facility] ospital MANUAL DIFF NOT INDICATED [facility] RBC MORPH NOT INDICATED [facility] Ho spital ID Date Data Source [id number] 04/19/2020 01:48:00 PM EST [facility] Name Value Range Interpretation Code Description Data [place]annah rce(s) Supporting Document(s) Prothrombin time (PT) 13.6 SECONDS 11.0 - 15.5 [facility] INR in Platelet poor plasma by Coagulation assay 0.99 0.93 - 1. 23 [facility] aPTT in Blood by Coagulation assay 26.0 SECONDS 24.8 - 36.7 [facility] \\BLDo\\INR INTERPRETATION\\BLDx\\ Therapeutic range for Coumadin and related oral anticoagulants. - International Normalized Ratio (INR): 2.0 - 3.0 for Venous Thrombosis, Pulmonary Embolus, Tissue heart valves, Acute IA Atrial Fibrillation, Valvular heart disease and recurrent Systemic Embolism. - International Normalized Ratio (INR): 2.5 - 3.5 for Mechanical Prosthetic valve. ID Date Data Source [id number] 04/19/2020 01:23:00 PM [facility] Name Value Range Interpretation Code Description Data [place]annah rce(s) Supporting Document(s) Lactate [Moles/volume] in Serum or Plasma 2.7 MMOL/L 0.2 - 2.2 H [facility] ID Date Data Source [id number] 01/23/2020 10:47:48 AM EST [facility] ([facility]) Name Value Range Interpretation Code Description Data [place]annah rce(s) Supporting Document(s) HbA1c Hba1C [facility] ([facility]) ID Date Data Source [id number] 10/26/2019 09:33:[address] [facility] In-House Blood TestsDate/Time Colle cted: October 26, 2019 8:33 AMTest Result Reference Range Normal ValueComments: taken from left ac, tolerated well.Radha Jimenez, October 26, 2019 9:33 AMAssessment & Plan Orders:[id number] Vst-Est Level I [CPT-59355] 35630 - Venipuncture [CPT-41227] Name Value Range Interpretation Code Description Data [place]annah rce(s) Supporting Document(s) ID Date Data Source [id number] 10/26/2019 08:35:[address] [facility] Name Value Range Interpretation Code Description Data [place] rce(s) Supporting Document(s) HGBA1C 6.3 % N [facility] ID Date Data Source [id number] 10/26/2019 08:35:[address] [facility] Name Value Range Interpretation Code Description Data [place]annah rce(s) Supporting Document(s) BG FASTING 136 mg/dL 70-100 [facility] T4, FREE 1.07 ng/dL 0.76-1.46 [facility] TSH 1.170 microintl units/mL 0.358-3.740 N [facility] VIT D25 TOT 47.2 ng/mL 30.0-100.0 [facility] ID Date Data Source [id number] 10/26/2019 08:35:[address] [facility] Name Value Range Interpretation Code Description Data [place] rce(s) Supporting Document(s) HCT 46.8 % 42.0-52.0 [facility] HGB 15.1 g/dL 13.5-17.5 [facility] MCH 32.3 G/DL pg 32.0-36.5 N [facility] MCHC 29.3 PG % 27.0-33.[address] [facility] PLATELETS 279 10 10*3/mm3 150-450 [facility] RBC 5.16 10 10*6/mm3 4.30-6.[address] [facility] RDW 14.3 % 11.5-14.[address] [facility] WBC TOTAL 11.5 4.0-10.[address] [facility] ID Date Data Source [id number] 10/26/2019 12:00:[address] [facility] Name Value Range Interpretation Code Description Data [place]annah rce(s) Supporting Document(s) HGBA1C 6.3 % [facility] ID Date Data Source [id number] 10/20/2019 10:51:[address] [facility] Measurements & CalculationsHeight: 67 inches (5 ft. 7 in.) 170.18 cm Weight: 287 pounds 6 oz. 130.63 kg Body Mass Index (BMI): 45.17BMI Interpretation: Morbidly ObeseBody Surface Area (BSA): 2.36Weight Management Education Done (Nutrition/Physical Activity)Vital SignsTemperature: 97.7F 36.50C tympanic Pulse Rate: 86 beats/minuteRespiratory Rate: 18 respirations/minuteBlood Pressure: 152/89 right arm sitting automaticO2 Saturation: 97% Vital Signs performed by: Korina Fine LPN, October 20, 2019 10:54 AMAdult Questionnaire1) Does the patient have a long-term health problem with heart disease, lung disease, asthma, kidney disease, metabolic disease (e.g., diabetes), anemia, or other blood disorder? No2) Does the patient have allergies to medications, food, a vaccine component, or latex? No3) Does the patient have cancer, leukemia, AIDS, or any other immune system problem? No4) Does the patient live with or expect to have close contact with a person whose immune system is severely compromised and who must be in protective isolation (e.g., an isolation room of a bone marrow transplant unit)? No5) Does the patient take cortisone, prednisone, other steroids, or anticancer drugs, or has the patient had radiation treatments? No6) During the past year, has the patient received a transfusion of blood or blood products, or been given immune (gamma) globulin or an antiviral drug? No7) For women: Is the patient or is there a chance she could become during the next month? No8) Has the patient ever had a serious reaction to a vaccine in the past? No9) Has the patient had a seizure or a brain or other nervous system problem? No10) Has the patient received any vaccinations in the past 4 weeks? No11) Is the patient older than age 49 years? No12) Is the patient sick today? No13) Vaccine information given and explained to patient? YesVaccines Administ ered/Entered:Vaccination Group: TdapSeries: 1Vaccination: Boostrix - AdultMfr / Lot# / Exp.Date: MediaCore / [id number] / 2Amt. Given / Route / Site: 0.5 mL / IM / Left DeltoidNDC / CVX: [id number] / 115Administered Date: 10/20/2019 14:01VFC Eligibility: Not VFC EligibleVIS Date: 06/14/2019VIS Given / VIS Given On: Yes / 10/20/2019Comments: Administered by: Korina Fine LPN Multiple Vital SignsVitals #2BP: 161/104 Performed by: Korina Fine LPN, October 20, 2019 11:43 AMInitial Intake Information From: patientRoom #: 2Infectious Disease / Travel ScreeningRecent travel for you or any close contacts? NoHave you had any close contact with anyone diagnosed with or under investigation for COVID-19 (coronavirus)? NoFever? NoRespiratory symptoms: cough, cold, congestion, shortness of breath, difficulty breathing? NoLoss of smell? NoLoss of taste? NoSmoking, Tobacco, Vaping or Smoke Exposure StatusSmoke Status: never smokerTobacco Use: NoDo you vape? NoPassive Smoke Exposure: NoHealthcare HistorySince your last office visit...Have you been admitted to the hospital? NoHave you been to an emergency room (ER) or urgent care clinic? NoHave you seen another healthcare provider? NoHave you seen a dentist? NoIntake performed by: Korina Fine LPN, October 20, 2019 10:55 AMRate Your HealthIn general, would you say your health is? FairPain AssessmentAre you currently having any pain which... You would like your provider to address? Yes Affects your activity level? YesDepression Screening - PHQ-2Over the last two weeks, have you... Had little interest or pleasure in doing things? Not at all Been feeling down, depressed, or hopeless? Not at all PHQ-2 Score: 0Food InsecurityWithin the past year...Did you worry whether your food would run out before you got money to buy more? NoWas there a time when the food you bought didn't last and you didn't have money to get more? NoPain AssessmentLocation: kneesDuration: chronicFrequency: DailyCharacter/Quality: aching and throbbingPRAPARE Sociodemographic Characteristics Race: White Ethnicity: or Preferred Language: EnglishFamily and Home Address: [address] [place] [address] What is your housing situation today? I have housing Are you worried about losing your housing? NoMoney and Resources What is the highest level of school that you have finished? associate's degree Employed? No Are you seeking work? No Insurance: MedicaidIn the past year, have you or any family members you live with been unable to get any of the following when it was really needed? Denie s Insecurity: food, utilities, clothing, childhood teacher, phone, legal services, otherWithin the past year did you worry whether your food would run out before you got money to buy more? NoWithin the past year was there a time when the food you bought didn't last and you didn't have money to get more? NoIn the past year, have you had trouble affording costs associated with health insurance (such as deductibles, co-payments, etc.)? NoScreening, Brief Intervention, & Referral to Treatment (SBIRT)Pre-Screening Questions How many times have you have 5 or more drinks in a day? 0How many times have you used an illegal drug or used a prescription medication for a non-medical reason? 0Performed by: Korina Fine LPN, October 20, 2019 10:56 AMPatient History Medical History:Vitamin D deficiencyPrediabetesHigh cholesterol-resolved with weight lossHypothyroidAnxietySurgical History:feet bilaterallyFamily History:Diabetes (Father)Heart disease (Father)Hypertension (Father)Diabetes (Mother)Heart disease (Mother)Hypertension (Mother)Social/Personal History: Chief Complaintannual examHistory of Present Illness (HPI)54 yo pt presents for a new pt exam. Moved to [place] in August 2019 from [place]. Pt states he is in pain in both knees, more so the right knee but left is starting to hurt as well. Right knee had a crush injury in 07/2018 lifting weights, tore ligaments and had meniscal injury. Had an evaluation at [facility], but never had surgery or PT. Pt has had pain and limping, slowly worsening. Pt also has hx of an episode of two unprovoked blood clots in the right leg, along with PE in 2018 while in [place]; states the PE self resolved and he was on blood thinners (Eliquis) for 6 months. Left knee began hurting about 1.5 weeks ago, feels posterior knee pain, feels clicking. Pt states he was taking Vit D weekly but can has not had refills since being in [place]. Last labs with prior PCP was around 05/2019. Hx of prediabetes on Metformin, had significant natural weight loss and intolerance to the medication as well. Pt has no record of last Tdap. Had reportedly normal c-scope 2019 in [place]. HPI performed by: Thomas ZIMMERMAN, October 20, 2019 11:10 AMProblem ReviewProblem List was reviewed and/or updated during this visit.Medication Reconciliation & ReviewMedication List was reviewed and/or updated during this visit, including review of any zxuf-lkw-ujftiro medications, herbal therapies, and/or supplements.Allergy ReviewAllergy List was reviewed and/or updated during this visit.Adult Preventive CareLabs/Meds/Other Counseling-Nutrition and Physical Activity:BMI Interpretation: Morbidly Obese (10/20/2019) Counseling: Done (10/20/2019) Physical Activity: Done (10/20/2019)Review of Systems General: Denies loss of appetite, chills, dizziness, fatigue, fever, headache, feeling ill. Eyes: Denies blurring of vision, double vision. Ears/Nose/Throat: Denies earache, decreased hearing, nasal congestion, sore throat, swollen glands. Cardiovascular: Denies chest pain, palpitations, feeling faint, peripheral edema, elevated blood pressure. Respiratory: Denies cough, difficulty breathing, shortness of breath, wheezing. Gastrointestinal: Denies nausea, vomiting, diarrhea, constipation, pain or discomfort, change in bowel habits, blood in stool, black or tarry stools. Musculoskeletal: Complains of see HPI, joint pain, joint swelling, stiffness. Denies recent injury. Skin: Denies rash, suspicious lesions. Neurologic: Complains of see HPI, weakness. Denies numbness/tingling, feeling faint. Psychiatric: Denies depression, anxiety. Physical ExamGeneral Appearance: well nourished, well hydrated, no acute distress, obese maleEyes, External: conjunctivae and lids normal, EOMIExternal Ears: normal, no lesions or deformitiesHearing: grossly intactOtoscopy: canals clear, tympanic membranes intact, no fluid, light reflex intact bilaterallyExternal Nose: normal, no lesions or deformitiesNasal: mucosa, septum, and turbinates normal, nares patentLips/Teeth/Gums: no gingival inflammation, no labial lesionsPharynx: tongue normal, posterior pharynx without erythema or exudate, no thrush/aphthous ulcerNeck: supple, no masses, trachea midline, full range of motion of neckThyr oid: no nodules, masses, tenderness, or enlargementRespiratory, Auscultation: clear to auscultation bilaterally; no rales, rhonchi, or wheezesRespiratory, Effort: no intercostal retractions or use of accessory musclesCardiovascular, Auscultation: S1, S2 audible; no murmur, rub, or gallop; RRRPeripheral Circulation: no clubbing, cyanosis, edema, or varicositiesAbdomen: soft, non- tender, no masses, bowel sounds normalGait & Station: normalSkin, Inspection: no rashes, lesions, or ulcerationsOrientation: oriented to time, place, and personMood & Affect: no depression, anxiety, or agitationJudgment & Insight: intactRate Your HealthIn general, would you say your health is? FairAssessment & Plan Problems:Added: Personal history of traumatic brain injury (ICD-V15.52) (KUK59-W19.820)Personal history of diseases of blood and blood-forming organs (ICD-V12.3) (YDS77-G49.2): DVT in right leg and PE in 2018-unprovoked, on Eliquis for 6 monthsEncounter for general adult medical examination with a bnormal findings (ICD-V70.0) (LQI48-T16.01) Assessment: Instructions: Recommend annual medical appointments. Recommend routine dental and vision care. Recommend influenza vaccines annually and tetanus boosters every 10 years. Release of information form(s) to obtain medical records from your prior providers(s) has been signed in the office today.Elevated blood-pressure reading without diagnosis of hypertension (BGT10-B40.0) Assessment: Instructions: Recommend reduced salt intake, cut back on caffeine and alcohol, increase physical activity. We reviewed the retirement risks associated with uncontrolled high blood pressure, including stroke and heart attack. Goal BP is <140/90, please call the office if your blood pressures are consistently running higher than that cutoff. Call 911 or report to the closest ER for chest pain, shortness of breath, dizziness, or passing out.Prediabetes (IPP64-T73.03) Assessment: Instructions: Fasting labs have been ordered for you today. When labs are drawn, please ensure that you have had nothing to eat or drink for 8-10 hours prior to the blood drawn. Water or black coffee is OK to have before the blood draw. Recommend low carbohydrate diet: reduce pasta, bread, potatoes, rice. If you do eat carbohydrates, better choices are whole wheat and brown rice products. Recommend portion control and avoidance of soda and sugary foods. Increase physical activity and monitor weight.MORBID OBESITY (ICD- 278.01) (XNK73-L28.01) Assessment: Instructions: Successful weight loss through lifestyle modification. Keep up the hard work. Recommend healthy lifestyle modification. Encourage portion control, healthy food choices, and increasing routine physical activity. Recommendation is for 150 minutes throughout the week of cardiovascular exercise.BMI 45.0-49.9 (ICD-V85.42) (DMQ50-N24.42) Assessment: Instructions: As above.Vitamin D deficiency, unspecified (ZIR59-Q42.9) Assessment: Instructions: Update labs in the near future.Hypothyroidism, unspecified (GYB90-L60.9) Assessment: Instructions: As above. Refills sent today.Registered disabled (ODL29-Z20.9): TBI - permanently disabled Assessment: Instructions: Letter for emotional support animal for in the home given today.Generalized anxiety disorder (ICD-300.02) (HDL37-W33.1) Assessment: Instructions: Stable with current Celexa.Pain in left knee (ICD-719.46) (XWF92-W27.562) Assessment: Instructions: Referral for orthopedics and physical therapy. LIkely secondary to offloading pressure from right knee.Pain in right knee (ICD-719.46) (VEC70-O57.561) Assessment: Instructions: Continue compression brace and supportive measures. As above.Encounter for immunization (ICD-V05.9) ([id number]) Assessment: Instructions: Tdap today.Patient Instructions/Care Plan: Encounter for general adult medical examination with abnormal findings: Recommend annual medical appointments. Recommend routine dental and vision care. Recommend influenza vaccines annually and tetanus boosters every 10 years. Release of information form(s) to obtain medical records from your prior providers(s) has been signed in the office today.Elevated blood-pressure reading without diagnosis of hypertension: Recommend reduced salt intake, cut back on caffeine and alcohol, increase physical activity. We reviewed the retirement risks associated with uncontrolled high blood pressure, including stroke and heart attack. Goal BP is <140/90, please call the office if your blood pressures are consistently running higher than that cutoff. Call 911 or report to the closest ER for chest pain, shortness of breath, dizziness, or passing out.Prediabetes: Fasting labs have been ordered for you today. When labs are drawn, please ensure that you have had nothing to eat or drink for 8-10 hours prior to the blood drawn. Water or black coffee is OK to have before the blood draw. Recommend low carbohydrate diet: reduce pasta, bread, potatoes, rice. If you do eat carbohydrates, better choices are whole wheat and brown rice products. Recommend portion control and avoidance of soda and sugary foods. Increase physical activity and monitor weight.MORBID OBESITY: Successful weight loss through lifestyle modification. Keep up the hard work. Recommend healthy lifestyle modification. Encourage portion control, healthy food choices, and increasing routine physical activity. Recommendation is for 150 minutes throughout the week of cardiovascular exercise.BMI 45.0-49.9: As above.Vitamin D deficiency- unspecified: Update labs in the near future.Hypothyroidism- unspecified: As above. Refills sent today.Registered disabled: Letter for emotional support animal for in the home given today.Generalized anxiety d Plan developed in collaboration with patient and/or familyMedications:CELEXA 40 MG ORAL TABLETMELOXICAM 15 MG ORAL TABLETLEVO-T 100 MCG ORAL TABLETMedication Changes:New Prescription:CELEXA 40 MG ORAL TABLET-one tablet by mouth once daily Qty: 90[Tablet] Refills: 3 Method: ElectronicMELOXICAM 15 MG ORAL TABLET-one tablet by mouth once daily Qty: 90[Tablet] Refills: 3 Method: ElectronicLEVO-T 100 MCG ORAL TABLET-one tablet by mouth once daily Qty: 90[Tablet] Refills: 3 Method: ElectronicAllergies:METFORMIN HCL (METFORMIN HCL) (Moderate)Orders:Tdap (5) [CPT-44175] COMP METABOLIC PANEL [CPT-03020] CBC W/DIFF [CPT-01308] HgBA1c [CPT- 42053] LIPID PANEL [CPT-39022] TSH [CPT-01106] T-4 free [CPT-59457] Vitamin D 250H Unspecified [CPT-06506] 67786 - Immo Admin (over 19 yrs), 1st Vaccine [CPT- 36293] 57477 - Immo Admin (over 19 yrs), Addtl Vaccine(s) [CPT-68355] Preventive, New, (40-64) [CPT-02413] Follow-Up Return to clinic: in 90 days for follow upAdditional Follow-Up: preDMClinical Visit Summary Completed Name Value Range Interpretation Code Description Data Sav[place] rce(s) Supporting Document(s) Procedure Vital Signs ID Date Data Source UNK Name Value Range Interpretation Code Description Data Source(s) Body weight 5030.4 [oz_av] 5030.4 [oz_av] ALESHIA Kang ([facility]) Systolic blood pressure 178 mm[Hg] 178 mm[Hg] A THENA ([facility]) Systolic blood pressure 170 mm[Hg] 170 mm[Hg] A [facility] ([facility]) Body mass index (BMI) [Ratio] 49.2 kg/m2 49.2 k g/m2 ROBERT ([facility]) Body height 67 [in_i] 67 [in_i] ROBERT ([facility]) Diastolic blood pressure 101 mm[Hg] 101 mm[Hg] ROBERT ([facility]) Diastolic blood pressure 95 mm[Hg] 95 mm[Hg] ROBERT ([facility]) Body weight 4792 [oz_av] 4792 [oz_av] ROBERT ([facility]) Systolic blood pressure 149 mm[Hg] 149 mm[Hg] A THENA ([facility]) Systolic blood pressure 153 mm[Hg] 153 mm[Hg] A [facility] ([facility]) Body mass index (BMI) [Ratio] 46.9 kg/m2 46.9 k g/m2 ROBERT ([facility]) Body height 67 [in_i] 67 [in_i] ROBERT ([facility]) Diastolic blood pressure 78 mm[Hg] 78 mm[Hg] ROBERT ([facility]) Diastolic blood pressure 79 mm[Hg] 79 mm[Hg] ROBERT ([facility]) Body weight 4792 [oz_av] 4792 [oz_av] ROBERT ([facility]) Systolic blood pressure 149 mm[Hg] 149 mm[Hg] A THENA ([facility]) Systolic blood pressure 153 mm[Hg] 153 mm[Hg] A THENA ([facility]) Body mass index (BMI) [Ratio] 46.9 kg/m2 46.9 k g/m2 ROBERT ([facility]) Body height 67 [in_i] 67 [in_i] ROBERT ([facility]) Diastolic blood pressure 78 mm[Hg] 78 mm[Hg] ROBERT ([facility]) Diastolic blood pressure 79 mm[Hg] 79 mm[Hg] ROBERT ([facility]) Body weight 4792 [oz_av] 4792 [oz_av] ROBERT ([facility]) Systolic blood pressure 149 mm[Hg] 149 mm[Hg] A THENA ([facility]) Systolic blood pressure 153 mm[Hg] 153 mm[Hg] A [facility] ([facility]) Body mass index (BMI) [Ratio] 46.9 kg/m2 46.9 k g/m2 ROBERT ([facility]) Body height 67 [in_i] 67 [in_i] ROBERT ([facility]) Diastolic blood pressure 78 mm[Hg] 78 mm[Hg] ROBERT ([facility]) Diastolic blood pressure 79 mm[Hg] 79 mm[Hg] ROBERT ([facility]) Body temperature 96.6 [degF] 96.6 [degF] MEDENT ([facility]) Body weight 4598.08 [oz_av] 4598.08 [oz_av] ATH VALERIA ([facility]) Systolic blood pressure 152 mm[Hg] 152 mm[Hg] A THENA ([facility]) Systolic blood pressure 161 mm[Hg] 161 mm[Hg] A [facility] ([facility]) Body mass index (BMI) [Ratio] 45.17 kg/m2 45.17 kg/m2 ROBERT ([facility]) Body height 67 [in_i] 67 [in_i] ROBERT ([facility]) Diastolic blood pressure 89 mm[Hg] 89 mm[Hg] ROBERT ([facility]) Diastolic blood pressure 89 mm[Hg] 89 mm[Hg] ROBERT ([facility]) Body weight 4598.08 [oz_av] 4598.08 [oz_av] ATH VALERIA ([facility]) Systolic blood pressure 152 mm[Hg] 152 mm[Hg] A THENA ([facility]) Systolic blood pressure 161 mm[Hg] 161 mm[Hg] A [facility] ([facility]) Body mass index (BMI) [Ratio] 45.17 kg/m2 45.17 kg/m2 ROBERT ([facility]) Body height 67 [in_i] 67 [in_i] ROBERT ([facility]) Diastolic blood pressure 89 mm[Hg] 89 mm[Hg] ROBERT ([facility]) Diastolic blood pressure 89 mm[Hg] 89 mm[Hg] ROBERT ([facility]) Body weight 4598.08 [oz_av] 4598.08 [oz_av] ATH VALERIA ([facility]) Systolic blood pressure 152 mm[Hg] 152 mm[Hg] A THENA ([facility]) Systolic blood pressure 161 mm[Hg] 161 mm[Hg] A THENA ([facility]) Body height 67 [in_i] 67 [in_i] ROBERT ([facility]) Diastolic blood pressure 89 mm[Hg] 89 mm[Hg] ROBERT ([facility]) Diastolic blood pressure 89 mm[Hg] 89 mm[Hg] ROBERT ([facility]) Patient Treatment Plan of Care Planned Activity Planned Date Details Description Data Source (s) Flublok Quad (PF) 180 mcg (45 mcg x 4)/0.5 mL IM syringe PHARMACIST ADMINISTERED IMMUNIZATION ADMINISTERED AT TIME OF DISPENSING ROBERT ([facility]) Cephalexin 500 MG Oral Capsule ROBERT ([facility]) Flublok Quad (PF) 180 mcg (45 mcg x 4)/0.5 mL IM syringe PHARMACIST ADMINISTERED IMMUNIZATION ADMINISTERED AT TIME OF DISPENSING ROBERT ([facility]) Cephalexin 500 MG Oral Capsule ROBERT ([facility]) Flublok Quad (PF) 180 mcg (45 mcg x 4)/0.5 mL IM syringe PHARMACIST ADMINISTERED IMMUNIZATION ADMINISTERED AT TIME OF DISPENSING ROBERT ([facility]) Cephalexin 500 MG Oral Capsule ROBERT ([facility])
--- OUTSIDE RECORDS SUMMARY | 2020-05-10 11:28 | CCD ---
Author Author [facility] Organization [facility] Address Unknown Phone Unavailable Care Team Providers Care Surgical Instrument Maker Name Role Phone KOO, BHAVIN THOMAS RPA-C [...] THOMAS RPA-C Unavailable Unavailable Hospital Lab, [facility] [place] Unavailable Unavailable Mauricio Carrero MD Unavailable Unavailable [...] Unavailable Mauricio Carrero MD Unavailable Unavailable Mauricio Carrreo MD Unavailable Unavailable Mauricio Carrero MD Unavailable Unavailable Mauricio Carrero MD Unavailable Unavailable Mauricio Carrero MD Unavailable Unavailable Mauricio Carrero MD Unavailable Unavailable Mauricio Carrero MD Unavailable Unavailable Mauricio Carrero MD Unavailable Unavailable Mauricio Carrero MD Unavailable Unavailable Mauricoi Carrero MD Unavailable Unavailable Mauricio Carrero MD [...] Unavailable Carrero, Mauricio Aguilar MD Unavailable Unavailable Alise, Mauricio Aguilar MD Unavailable Unavailable Alise, Mauricio Aguilar MD Unavailable Unavailable Carrero, Mauricio [...] Unavailable Carrero, Mauricio Aguilar MD Unavailable Unavailable Alise, Mauricio Aguilar MD Unavailable Unavailable Alise, Mauricio Aguilar MD Unavailable Unavailable Alise, Mauricio Aguilar MD Unavailable Unavailable Alise, Mauricio Aguilar MD Unavailable Unavailable Carrero, Mauricio Aguilar MD Unavailable Unavailable Carrero, Mauricio Aguilar MD Unavailable Unavailable Carrero, Mauricio Aguilar MD Unavailable Unavailable Carrero, Mauricio Aguilar MD Unavailable Unavailable MCELHERAN, ALAN PA Unavailable Unavailable MCELHERAN, ALAN PA Unavailable Unavailable MCELHERAN, AALN PA Unavailable Unavailable MCELHERAN, ALAN PA Unavailable [...] J Rafa PA-C Unavailable Unavailable KOO, BHAVIN THMOAS RPA-C Unavailable Unavailable KOO, BHAVIN THOMAS RPA-C [...] KOO, BHAVIN THOMAS RPA-C Unavailable Unavailable KOO, BAHVIN THOMAS RPA-C Unavailable Unavailable KOO, BHAVIN THOMAS [...] is protected by Article 27-F of the [place] Public Health law. If you continue you may have access to information: Regarding HIV / AIDS; Provided by facilities licensed or operated by the [place] Office of Mental Health; or Provided by the [place] Office for People With Developmental Disabilities. If such information is present, then the following [place] mandated warning applies: This information has been [...] law may result in a fine or care home sentence or both. A general authorization for the release of medical or other information is NOT sufficient authorization for further disc losure. Allergies and Adverse Reactions Type Description Substance Reaction Status Data Source(s ) Allergy to substance Allergy to substance Metformin Hcl [facility] ([facility]) Allergy to substance Allergy to substance Metformin Hcl [facility] ([facility]) Allergy to substance Allergy to substance Metformin Hcl [facility] ([facility]) Drug allergy METFORMIN HCL Metformin hydrochloride 1000 MG Oral Tablet diarrhea, lightheadedness U [facility] Encounters Encounter Providers Location Date Indications Data Source(s ) Jeff Carrero MD: [address], [facility] [address], [place] [address], Ph. Attender: Jeff Carrero MD [facility] Medical 05/01/2020 12:00:00 AM EST [facility]) KIT OsborneC: [address], [address], [place] [address], Ph. Attender: YOKO BLAKE [facility] Medical 04/22/2020 12:00:00 AM EST ROBERT ([facility]) JOHANNA Osborne: [address], [address], [place] [address], Ph. Attender: YOKO BLAKE [facility] Medical 04/22/2020 12:00:00 AM EST ROBERT ([facility]) Outpatient Attender: [facility] 04/19/2020 12:4 6:00 PM EST [facility] Emergency Attender: Rafa ZIMMERMAN-CConsultant: PCP NO 04/19/2020 12:17:00 PM EST - 04/19/2020 02:55:00 PM EST [facility] Patient discharged. Thomas Koo RPA-C: [address], [place] [address], Ph. Attender: THOMAS SPENCER [facility] Medical 04/15/2020 12:00:00 AM EST ROBERT ([facility]) Thomas Koo RPA-C: [address], [place] [address], Ph. Attender: THOMAS SPENCER [facility] Medical 04/15/2020 12:00:00 AM EST ROBERT ([facility]) Outpatient Attender: ALAN ZIMMERMAN Physical Therapy 01/31/2020 02:15:00 PM EST [facility] ([facility]) Thomas Koo RPA-C: [address], [address], [place] [address], Ph. Attender: THOMAS SPENCER [facility] Medical 01/23/2020 12:00:00 AM EST ROBERT ([facility]) Thomas Koo RPA-C: [address], [place] [address], Ph. Attender: THOMAS SPENCER [facility] Medical 01/23/2020 12:00:00 AM EST ROBERT ([facility]) Thomas Koo RPA-C: [address], [place] [address], Ph. Attender: THOMAS SPENCER [facility] - [facility] 01/23/2020 12:00:00 AM EST ROBERT ([facility]) Outpatient Attender: ALAN ZIMMERMAN Physical Therapy 12/28/2019 09:45:00 AM EDT [facility] ([facility]) Outpatient Attender: THOMAS SPENCER [facility] 12/11/2019 03:14:[address] [facility] Outpatient Attender: MIHIR SRINIVASAN [facility] 11/14 03:13:[address] [facility] Outpatient Attender: THOMAS SPENCER [facility] 12/11/2019 03:13:[address] [facility] 01:28:[address] [facility] Outpatient Attender: THOMAS SPENCER [facility] 12/06/2019 01:28:[address] [facility] Outpatient Attender: ALAN ZIMMERMAN Physical Therapy 11/30/2019 03:30:00 PM EDT [facility] ([facility]) Outpatient Attender: MIHIR CALABRESE [facility] 10/13 02:47:[address] [facility] Outpatient Attender: THMOAS SPENCER [facility] 10/31/2019 02:47:[address] [facility] 10/13 02:46:[address] [facility]: [facility] 10/13 06:03:[address] [facility] Outpatient Attender: ALAN ZIMMERMAN Physical Therapy 10/30/2019 08:45:00 AM EDT [facility] ([facility]) Outpatient Attender: MIHIR SRINIVASAN [facility] 10/13 05:41:[address] [facility] Outpatient Attender: THOMAS SPENCER [facility] 10/21/2019 12:00:[address] [facility] Outpatient Attender: THOMAS KOO RPA-C [facility] 10/20/2019 11:36:[address] [facility] Immunizations Vaccine Date Status Description Data Source(s) New in 2012. IIV4 12/21/2019 12:00:00 AM EDT completed 12/21/19 20 ROBERT ([facility]) New in 2012. IIV4 12/21/2019 12:00:00 AM EDT completed 12/21/19 20 ROBERT ([facility]) New in 2012. IIV4 12/21/2019 12:00:00 AM EDT [facility] 10/20/2019 12:00:00 AM EDT completed 10/20/2019 0.5 mL ROBERT ([facility]) Tdap 10/20/2019 12:00:00 AM EDT completed 10/20/2019 0.5 mL ROBERT ([facility]) Tdap 10/20/2019 12:00:00 AM EDT completed 10/20/2019 0.5 mL ROBERT ([facility]) Medications Medication Brand Name Start Date Product Form Dose Route Admi nistrative Instructions Pharmacy Instructions Status Indications Reaction Description Data Source(s) Cephalexin 500 MG Oral Capsule cephalexi n 500 mg capsule TAKE 1 CAPSULE BY MOUTH EVERY 12 HOURS cephalexin 500 mg capsule TAKE 1 CAPSULE BY MOUTH EVER Y 12 HOURS completed cephalexin 500 MG Oral Capsule [facility] ([facility]) Flublok Quad (PF) 180 mcg (45 mcg x 4)/0.5 mL IM syringe PHARMACIST ADMINISTERED IMMUNIZATION ADMINISTERED AT TIME OF DISPENSING [id number] completed 0.5 ML influenza A v irus A/[place] (H1N1) antigen 0.09 MG/ML / influenza A virus A/[place] (H3N2) antigen 0.09 MG/ML / influenza B virus B/[facility] antigen 0.09 MG/ML / influenza B virus B/ antigen 0.09 MG/ML Prefilled Syringe [Flublok Quadrivalent ] [facility]ERT ([facility]) Flublok Quad (PF) 180 mcg (45 mcg x 4)/0.5 mL IM syringe PHARMACIST ADMINISTERED IMMUNIZATION ADMINISTERED AT TIME OF DISPENSING [id number] completed 0.5 ML influenza A v irus A/ (H1N1) antigen 0.09 MG/ML / influenza A virus A/[place] (H3N2) antigen 0.09 MG/ML / influenza B virus B/[facility] antigen 0.09 MG/ML / influenza B virus B/ antigen 0.09 MG/ML Prefilled Syringe [Flublok Quadrivalent ] ROBERT ([facility]) Flublok Quad (PF) 180 mcg (45 mcg x 4)/0.5 mL IM syringe PHARMACIST ADMINISTERED IMMUNIZATION ADMINISTERED AT TIME OF DISPENSING 707036 completed 0.5 ML influenza A v irus A/[place] (H1N1) antigen 0.09 MG/ML / influenza A virus A/[place] (H3N2) antigen 0.09 MG/ML / influenza B virus B/[facility] antigen 0.09 MG/ML / influenza B virus B/ antigen 0.09 MG/ML Prefilled Syringe [Flublok Quadrivalent ] ROBERT ([facility]) Cephalexin 500 MG Oral Capsule cephalexi n 500 mg capsule TAKE 1 CAPSULE BY MOUTH EVERY 12 HOURS cephalexin 500 mg capsule TAKE 1 CAPSULE BY MOUTH EVER Y 12 HOURS completed cephalexin 500 MG Oral Capsule ROBERT ([facility]) Cephalexin 500 MG Oral Capsule cephalexi n 500 mg capsule TAKE 1 CAPSULE BY MOUTH EVERY 12 HOURS cephalexin 500 mg capsule TAKE 1 CAPSULE BY MOUTH EVER Y 12 HOURS completed cephalexin 500 MG Oral Capsule ROBERT ([facility]) Insurance Providers Payer name Policy type / Coverage type Policy ID Covered green party ID Covered green party's relationship to levin Policy Levin Plan Information EMEDNY [id number] SP [id number] MEDICARE [id number] SP [id number] MEDICARE COMPLETE [id number] SP [id number] MEDICARE C [id number] S [id number] MEDICAID M [id number] [place] [id number] SP [id number] MEDICARE [id number] SP [id number] MEDICARE C [id number] S [id number] MEDICARE C [id number] S [id number] EXCELLUS BCBS B [id number] S [id number] MEDICARE BLUE PPO [id number] SP [id number] NCO EPALS [id number] SP [id number] BCBS [facility] 121/621 [id number] SP [id number] [place] 121/621 [id number] SP [id number] Problems, Conditions, and Diagnoses Code Display Name Description Problem Type Effective Dates Data Source(s) 293575268115284 Pain of left hip joint Pain of Left Hip Joint Probl em 05/01/2020 12:00:00 AM [facility] ([facility]) 064633566 Low back pain Low Back Pain Problem 05/01/2020 12:00:00 AM [facility] ([facility]) 45207392 Essential hypertension Essential Hypertension Problem 05/01/2020 12:00:00 AM [facility] ([facility]) R03.0 Elevated blood-pressure reading without diagnosis of hypertension Elevated blood-pressure reading without diagnosis of hypertension 10/20/2019 11:35:[address] [facility] E55.9 Vitamin D deficiency, unspecified Vitamin D deficiency , unspecified 10/20/2019 11:35:[address] [facility] 215918542 Prediabetes Prediabetes 10/20/2019 11:35:[address] [facility] Z86.2 Personal history of diseases of the blood and blood-forming organs and certain disorders involving the immune mechanism Personal history of diseases of blood and blood-forming organs 10/20/2019 11:35:37 AM EDT No [facility] 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, on Eliquis for 6 months V85.42 BMI 45.0-49.9 BMI 45.0-49.9 10/20/2019 11:35:[address] [facility] 278.01 MORBID OBESITY MORBID OBESITY 10/20/2019 11:35: [address] [facility] 49143146 Hypothyroidism, unspecified Hypothyroidism, unspecifie d 10/20/2019 11:35:[address] [facility] V05.9 Encounter for immunization Encounter for immunization 10/20/2019 11:35:[address] [facility] V15.52 Personal history of traumatic brain inju ry Personal history of traumatic brain injury 10/20/2019 11:35:[address] [facility] 300.02 Generalized anxiety disorder Generalized anxiety disor batsheva 10/20/2019 11:35:[address] [facility] Z78.9 Other specified health status Registered disabled 10/20/2019 11:35:[address] [facility] TBI -permanently disabled 719.46 Pain in left knee Pain in left knee 10/20/2019 11:35:[address] [facility] 719.46 Pain in right knee Pain in right knee 0 11:35:[address] [facility] V70.0 Encounter for general adult medical exam ination with abnormal findings Encounter for general adult medical examination with abnormal findings 10/20/2019 11:35:[address] [facility] 860242976 Clinical finding Clinical Finding Problem 10/20/2019 12 :00:00 AM EDT [facility] ([facility]) 135376722677807 Pain in left knee Pain in Left Knee Problem 12:00:00 AM EDT [facility] ([facility]) 041003408327911 Pain in right knee Pain in Right Knee Problem 10/20/2019 12:00:00 AM EDT [facility] ([facility]) 320846536 Procedure by method Procedure by Method Problem 0 10/20/2019 12:00:00 AM EDT - 02/01/2020 12:00:00 AM EST [facility] ([facility]) 5467483955643 Influenza vaccine needed Influenza Vaccine Needed Pro blem 10/20/2019 12:00:00 AM EDT [facility] ([facility]) 750562563 Elevated blood-pressure reading without diagnosis of hypertension Elevated Blood-pressure Reading without Diagnosis of Hypertension Problem 10/20/2019 12:00:00 AM EDT [facility] ([facility]) 926652951 Prediabetes Prediabetes Problem 10/20/2019 12:00:00 AM EDT ROBERT ([facility]) 02532668 Generalized anxiety disorder Generalized Anxiety Disor batsheva Problem 10/20/2019 12:00:00 AM EDT ROBERT ([facility]) 95648973934726 Severe obesity Severe Obesity Problem 10/20/2019 12 :00:00 AM EDT ROBERT ([facility]) 052206844 Body mass index 30+ - obesity Body Mass Index 30+ - Ob esity Problem 10/20/2019 12:00:00 AM EDT [facility] ([facility]) 67030988 Vitamin D deficiency Vitamin D Deficiency Problem 10/20/2019 12:00:00 AM EDT [facility] ([facility]) 41324326 Hypothyroidism Hypothyroidism Problem 10/20/2019 12:00: 00 AM EDT ROBERT ([facility]) 357426524 Clinical finding Clinical Finding Problem 10/20/2019 12 :00:00 AM EDT ROBERT ([facility]) 125749835699283 Pain in left knee Pain in Left Knee Problem 12:00:00 AM EDT [facility] ([facility]) 825652885069996 Pain in right knee Pain in Right Knee Problem 10/20/2019 12:00:00 AM EDT [facility] ([facility]) 066909028 Procedure by method Procedure by Method Problem 0 10/20/2019 12:00:00 AM EDT - 02/01/2020 12:00:00 AM EST [facility] ([facility]) 7120332010529 Influenza vaccine needed Influenza Vaccine Needed Pro blem 10/20/2019 12:00:00 AM EDT [facility]ERT ([facility]) 650285703 Elevated blood-pressure reading without diagnosis of hypertension Elevated Blood-pressure Reading without Diagnosis of Hypertension Problem 10/20/2019 12:00:00 AM EDT [facility] ([facility]) 997528013 Prediabetes Prediabetes Problem 10/20/2019 12:00:00 AM EDT ROBERT ([facility]) 96708902 Generalized anxiety disorder Generalized Anxiety Disor batsheva Problem 10/20/2019 12:00:00 AM EDT [facility] ([facility]) 03146402889508 Severe obesity Severe Obesity Problem 10/20/2019 12 :00:00 AM EDT ROBERT ([facility]) 648958353 Body mass index 30+ - obesity Body Mass Index 30+ - Ob esity Problem 10/20/2019 12:00:00 AM EDT [facility] ([facility]) 81848394 Vitamin D deficiency Vitamin D Deficiency Problem 10/20/2019 12:00:00 AM EDT [facility] ([facility]) 15651897 Hypothyroidism Hypothyroidism Problem 10/20/2019 12:00: 00 AM EDT ROBERT ([facility]) 849831421 Clinical finding Clinical Finding Problem 10/20/2019 12 :00:00 AM EDT ROBERT ([facility]) 752323385176416 Pain in left knee Pain in Left Knee Problem 12:00:00 AM EDT ROBERT ([facility]) 239241817354352 Pain in right knee Pain in Right Knee Problem 10/20/2019 12:00:00 AM EDT ROBERT ([facility]) 807446264 Procedure by method Procedure by Method Problem 0 10/20/2019 12:00:00 AM EDT - 02/01/2020 12:00:00 AM EST [facility]ERT ([facility]) 9235859236145 Influenza vaccine needed Influenza Vaccine Needed Pro blem 10/20/2019 12:00:00 AM EDT ROBERT ([facility]) 469088515 Elevated blood-pressure reading without diagnosis of hypertension Elevated Blood-pressure Reading without Diagnosis of Hypertension Problem 10/20/2019 12:00:00 AM EDT ROBERT ([facility]) 636424949 Prediabetes Prediabetes Problem 10/20/2019 12:00:00 AM EDT ROBERT ([facility]) 51801745 Generalized anxiety disorder Generalized Anxiety Disor batsheva Problem 10/20/2019 12:00:00 AM EDT [facility]ERT ([facility]) 25274827859065 Severe obesity Severe Obesity Problem 10/20/2019 12 :00:00 AM EDT ROBERT ([facility]) 234659003 Body mass index 30+ - obesity Body Mass Index 30+ - Ob esity Problem 10/20/2019 12:00:00 AM EDT [facility] ([facility]) 78711461 Vitamin D deficiency Vitamin D Deficiency Problem 10/20/2019 12:00:00 AM EDT ROBERT ([facility]) 45449969 Hypothyroidism Hypothyroidism Problem 10/20/2019 12:00: 00 AM EDT ROBERT ([facility]) Y28435 Personal history of other venous thrombo sis and embolism Personal history of other venous thrombosis and embolism Diagnosis 04/19/2020 12:17:00 PM [facility] V15046 Personal history of pulmonary embolism P ersonal history of pulmonary embolism Diagnosis 04/19/2020 12:17:00 PM [facility] M01213 Cellulitis of right lower limb Cellulitis of right low er limb Diagnosis 04/19/2020 12:17:00 PM [facility] R21 Rash and other nonspecific skin eruption Rash and other nonspecific skin eruption Diagnosis 04/19/2020 12:17:00 PM [facility] Surgeries/Procedures Procedure Description Date Indications Data Source(s) ARTHROCENTESIS ASPIR&/INJECTION MAJOR JT/BURSA 12:00:00 AM EST [facility] ([facility] THERAPEUTIC PX 1/> AREAS EACH 15 MIN EXERCISES 12:00:00 AM EDT [facility] ([facility] ) THERAPEUTIC PX 1/> AREAS EACH 15 MIN EXERCISES 12:00:00 AM EDT [facility] ([facility] ) Re-Eval Of PT Established Plan Of Care 20Mins Face To Face P T/Fam 01/10/2020 12:00:00 AM EDT [facility] ([facility]) THERAPEUTIC PX 1/> AREAS EACH 15 MIN EXERCISES 12:00:00 AM EDT [facility] ([facility]) THERAPEUTIC PX 1/> AREAS EACH 15 MIN EXERCISES 12:00:00 AM EDT [facility] ([facility]) APPLICATION MODALITY 1/> AREAS HOT/COLD PACKS 12/04/19 12:00:00 AM EDT [facility] ([facility]) THERAPEUTIC PX 1/> AREAS EACH 15 MIN EXERCISES 12:00:00 AM EDT [facility] ([facility]) MANUAL THERAPY TQS 1/> REGIONS EACH 15 MINUTES 12:00:00 AM EDT [facility] ([facility]) MANUAL THERAPY TQS 1/> REGIONS EACH 15 MINUTES 12:00:00 AM EDT [facility] ([facility] ) THERAPEUTIC PX 1/> AREAS EACH 15 MIN EXERCISES 12:00:00 AM EDT [facility] ([facility] ) THERAPEUTIC PX 1/> AREAS EACH 15 MIN EXERCISES 12:00:00 AM EDT [facility] ([facility] ) MANUAL THERAPY TQS 1/> REGIONS EACH 15 MINUTES 12:00:00 AM EDT [facility] ([facility]) APPLICATION MODALITY 1/> AREAS HOT/COLD PACKS 11/24/19 12:00:00 AM EDT [facility] ([facility] ) THERAPEUTIC PX 1/> AREAS EACH 15 MIN EXERCISES 12:00:00 AM EDT [facility] ([facility] ) MANUAL THERAPY TQS 1/> REGIONS EACH 15 MINUTES 12:00:00 AM EDT [facility] ([facility] ) THERAPEUTIC PX 1/> AREAS EACH 15 MIN EXERCISES 12:00:00 AM EDT [facility] ([facility]) THERAPEUTIC PX 1/> AREAS EACH 15 MIN EXERCISES 12:00:00 AM EDT [facility] ([facility] ) MANUAL THERAPY TQS 1/> REGIONS EACH 15 MINUTES 12:00:00 AM EDT [facility] ([facility] ) Physical Therapy Eval - Low Complexity 11/08/2019 12:0 0:00 AM EDT [facility] ([facility] ) ARTHROCENTESIS ASPIR&/INJECTION MAJOR JT/BURSA 12:00:00 AM EDT [facility] ([facility]) Results ID Date Data Source [id number] 04/19/2020 12:17:00 PM EST [facility] 1 OrderSheet [facility] Emergency Department [address] [place] [address] Phone #: ext- [phone] 04/19/2020 12:03 Patient: YUDELKA BELTRAN Sex: M : 1965 Age: 54yWEIGHT:136.0 kg (S) HEIGHT:67 inches (S) BMI:47.0ALLERGIES: NoneCHIEF COMPLAINT: skin rashDIAGNOSIS: Cellulitis of skinLAB ORDERSOrder Description Priority Entered Acknowledged InitialedBlood Culture STAT 12:35 04/19/2020 12:54 Fatglo87a X2 (Henny ZIMMERMAN; Vinod HATFIELD12:35 04/19/2020)Blood Culture STAT 12:35 04/19/2020 13:04 Rhjwsq76r X2 (Henny ZIMMERMAN; Vinod RN12:45 04/19/2020)CBC w Diff STAT 12:35 04/19/2020 12:54 Yomi ZIMMERMAN; Vinod RNCMP STAT 12:35 04/19/2020 12:54 Yomi ZIMMERMAN; Vinod RNLactic Acid STAT 12:35 04/19/2020 12:54 Yomi ZIMMERMAN; Vinod RNPT/PTT STAT 12:35 04/19/2020 12:54 Yomi ZIMMERMAN; Vinod RNUrinalysis (Clean STAT 12:35 04/19/2020atch) Rafa ZIMMERMAN;Culture, Wound (R STAT 12:35 04/19/2020 15:05 Miguel,anterior leg) Rafa ZIMMERMAN; Irma NguyenDIAGNOSTIC STUDY ORDERSOrder Description Priority Entered Acknowledged [...] 12:55 Ernst ZIMMERMAN; Vinod RN 2 OrderSheet [facility] Emergency Department [address] [place] [address] Phone #: ext- [phone] 04/19/2020 12:03 Patient: [...] mlspike bag (D5W)Clindamycin IVPB 12:35 04/19/2020 14:11 Ctuhz382 mg (NOW x1) Rafa ZIMMERMAN; Vinod RNGENERAL ORDERSOrder Description Priority Entered Acknowledged InitialedVitals 12:35 04/19/2020 12:54 Yomi ZIMMERMAN; Vinod HATFIELDWarm blanket 12:35 04/19/2020 12:54 Yomi ZIMMERMAN; Vinod HATFIELDCrutches 14:21 04/19/2020 15:05 Rafa Rivera; Irma Nguyen[Electronically signed by Irma Rivera R.N. (15:12 04/19/2020)][Electronically signed by Rafa Kelly (15:35 04/19/2020)][Electronically locked by Irma Rivera R.N. (15:12 04/19/2020)] Name Value Range Interpretation Code Description Data [facility](s) Supporting Document(s) ID Date Data Source [id number] 04/19/2020 12:17:00 PM EST [facility] 1 Medication Reconciliation Report [facility] Emergency Department [address] [place] [address] Phone #: ext- [phone] 04/19/2020 12:03 Patient: YUDELKA BELTRAN Sex: M [...] 30 capsule. Refills: 0. Substitution permitted.Pharmacy - [facility] [phone] ; [place] [address]. . -- ELSIE Arndt Name Value Range Interpretation Code Description Data [facility] rce(s) Supporting Document(s) ID Date Data Source [id number] 04/19/2020 12:17:00 PM EST [facility] 1 Medication Administration Record [facility] Emergency Department [address] [place] [address] Phone #: ext- [phone] 04/19/2020 12:03 Patient: [...] R.N.Start ROCEPHIN (1GM/50ML) [IVPB] Rocephin (1gm/50mL) IVPB 740257:03 04/19/2020 (CEFTRIAXONE SODIUM) mg with Dextrose 50 [...] bagStop Site: #1 left hand14:45 1PIrma tompkins R.NPaulo Name Value Range Interpretation Code Description Data Savannah rce(s) Supporting Document(s) ID Date Data Source [id number] 04/19/2020 12:17:00 PM EST [facility] 1 General Instructions [facility] Emergency Department [address] [place] [address] Phone #: ext- [phone] 04/19/2020 12:03 Patient: [...] 30 capsule. Refills: 0. Substitution permitted.Pharmacy - [facility] [address] ; [place] [address]. .Understanding of the discharge instructions verbalized by patient. Expected course of illness, dischargeinstructions, activity level, prescriptions x1, follow-up appointment and risks and benefits of treatmentreviewed with patient and understanding verbalized. Agrees to plan of care.Follow-up with: EMERGENCY ROOM [facility], , , [address] [place] [address], , , , Follow up in two days even if well and for wound check. Call for the next available appointment. Reasonfor referral: evaluation. Summary of care provided to patient via paper. ADDITIONAL INFORMATIONCellulitisCellulitis is an infection of the deep layers of skin. A break in the skin, such as a cut or scratch, can let 2 General Instructions [facility] Emergency Department [address] [place] [address] Phone #: ext- [phone] 04/19/2020 12:03 Patient: YUDELKA BELTRAN Sex: M : 1965 Age: 54ybacteria [...] or higher after 2 days on antibiotics [id number] [employer]. [address] [place] [address]. All rights reserved. This information is not intended as a 3 General Instructions [facility] Emergency Department [address] [place] [address] Phone #: ext- [phone] 04/19/2020 12:03 Patient: [...] rce(s) Supporting Document(s) ID Date Data Source [id number] 04/19/2020 12:17:00 PM EST [facility] 1 Clinical Report - Nurses [facility] Emergency Department [address] [place] [address] Phone #: ext- [phone] 04/19/2020 12:03 Patient: YUDELKA BELTRAN Sex: M : 1965 Age: 54yTRIAGEArrived by private vehicle. Historian: patient. Unaccompanied. ( [facility] 3 weeks agocomplaining of left back pain [...] as painful. The patient hashad muscle aches.Treatment PROCESSOR SOLID PROPELLANT:Took Tylenol. (0800).SEPSIS SCREEN: SIRS SCREEN NEGATIVE. SEPSIS [...] Barroso R.N. 2 Clinical Report - Nurses [facility] Emergency Department [address] [place] [address] Phone #: ext- [phone] 04/19/2020 12:03 Patient: YUDELKA BELTRAN Sex: M [...] --12:26 04/19/20 3 Clinical Report - Nurses [facility] Emergency Department [address] [place] [address] Phone #: ext- [phone] 04/19/2020 12:03 --------- Patient: YUDELKA BELTRAN Sex: [...] flushed thoroughly. --15:06 04/19/20 Irma Rivera R.N. late entry - 14:50 [...] IV flushed 4 Clinical Report - Nurses [facility] Emergency Department [address] [place] [address] Phone #: ext- [phone] 04/19/2020 12:03 Patient: YUDELKA BELTRAN Sex: M [...] Patient verbalized understanding. Written instructions provided in Malawian. The patient was discharged by the physician corporate law assistant. He was discharged home and unaccompanied at time of discharge. He left on crutches and via private vehicle. Table Games Manager driving. --15:12 04/19/20 Irma Rivera R.N. 14:50 04/19/2020 Site #1 removed upon discharge. Bandage applied (2x2 and tape no bleeding noted pt tolerated well, clean dry and intact upon d/c.). --15:12 04/19/20 Irma Rivera R.N.Locked/Released at 04/19/2020 15:12 by Irma Rivera R.N. Name Value Range Interpretation Code Description Data Savannah rce(s) Supporting Document(s) ID Date Data Source [id number] 04/19/2020 12:17:00 PM EST [facility] 1 Clinical Report - Physicians/Mid Levels [facility] Emergency Department [address] [place] [address] Phone #: ext- [phone] 04/19/2020 12:03 Patient: YUDELKA BELTRAN Sex: M : 1965 Age: 54y Time Seen: 12:11 04/19/2020. Arrived- By private vehicle. Historian- patient. Disposition decision: 14:19 04/19/2020.HISTORY OF PRESENT ILLNESS Chief Complaint: SKIN RASH. This started about 2 weeks ago; Seen at [facility] x 2 weeks ago for L sided [...] None. 2 Clinical Report - Physicians/Mid Levels [facility] Emergency Department [address] [place] [address] Phone #: ext- [phone] 04/19/2020 12:03 Patient: [...] duplex sonography. Theexam was performed by a premises technician. The study was independently viewed by [...] 11.0) 3 Clinical Report - Physicians/Mid Levels [facility] Emergency Department [address] [place] [address] Phone #: ext- [phone] 04/19/2020 12:03 Patient: YUDELKA BELTRAN Sex: M [...] Male GFR Interprentation 20-49 yrs >60 mL/min Xrnvwy78-55 yrs >56 mL/min Normal 60-69 yrs >49 mL/min Normal 70-79yrs>42 mL/min Normal 80 and above >35 mL/min Normal Female GFRInterpretation 20-39 yrs >60 mL/min Normal 40-49 yrs >58 mL/minNormal 50-59 yrs >51 mL/min Normal 60-69 yrs >45 mL/min Lxvtsc45-78 yrs >39 mL/min Normal 80 and above >32 mL/min NormalLactic Acid: (KOJO: 04/19/2020 12:46) ( MsgRcvd 04/19/2020 13:25) Final results 4 Clinical Report - Physicians/Mid Levels [facility] Emergency Department [address] [place] [address] Phone #: ext- [phone] 04/19/2020 12:03 [id number] Sex[facility] M : 1965 Age: 54y Test [...] Thrombosis, Pulmonary Embolus, Tissue heart valves, Acute [place] Atrial Fibrillation, Valvular heart disease and recurrent [...] Medications: 5 Clinical Report - Physicians/Mid Levels [facility] Emergency Department [address] [place] [address] Phone #: ext- [phone] 04/19/2020 12:03 Patient: YUDELKA BELTRAN Sex: M : 1965 Age: 54y clindamycin HCl 300 mg capsule Take 1 capsule every eight hours as directed for 10 days -- for cellulitis. Dispense 30 capsule. Refills: 0. Substitution permitted. Pharmacy - [facility] [address] ; [place] [address]. . Understanding of the discharge instructions verbalized by patient. Expected course of illness, discharge instructions, activity level, prescriptions x1, follow-up appointment and risks and benefits of treatment reviewed with patient and understanding verbalized. Agrees to plan of care. Follow-up with: [facility]Y ROOM [facility], , , [address] [place] [address], , , , Follow up in two days even if well and for wound check. Call for the next available appointment. Reason for referral: evaluation. Summary of care provided to patient via paper.(Electronically signed by ELSIE Arndt 04/19/2020 15:35) Name Value Range Interpretation Code Description Data Savannah rce(s) Supporting Document(s) ID Date Data Source [id number] 04/19/2020 12:17:00 PM [facility] Addenda for YUDELKA BELTRAN VisitID: [id number] Date: 7:58Pt wound culture growing staph auerus, pt was d/c on Clindamycin PO which is sensitive; [facility], no further intervention required.(Electronically signed by Irma Rivera R.N. - 04/23/2020 7:58) Name Value Range Interpretation Code Description Data Savannah rce(s) Supporting Document(s) ID Date Data Source [id number] 04/22/2020 10:45:00 AM EST [facility] ([facility]) Name Value Range Interpretation Code Description Data Savannah rce(s) Supporting Document(s) Hemoglobin A1c/Hemoglobin.total in Blood 6.7 % normal Hemoglobin a1C [facility] ([facility]) estimated average glucose 146 mg/dL 60-110 Above high norm al Estimated Average Glucose [facility]) ID Date Data Source [id number] 04/22/2020 10:45:00 AM [facility] Name Value Range Interpretation Code Description Data Savannah rce(s) Supporting Document(s) total 25(oh) vitamin D 16.9 NG/mL 30.0-100.0 Below low normal T otal 25(Oh) Vitamin D [facility]) ID Date Data Source [id number] 04/22/2020 10:45:00 AM EST [facility] ([facility]) Name Value Range Interpretation Code Description Data Savannah rce(s) Supporting Document(s) thyroid stimulating hormone 1.670 uIU/mL 0.358-3.740 normal Thyroid Stimulating Hormone [facility] ([facility]) free T4 0.93 NG/dL 0.76-1.46 normal Free T4 [facility]) ID Date Data Source [id number] 04/22/2020 10:45:00 AM EST [facility] Name Value Range Interpretation Code Description Data [place]annah rce(s) Supporting Document(s) triglycerides level 404 mg/dL <150 Above high normal Triglycer ides Level [facility] ([facility]) cholesterol risk ratio <5 normal Cholesterol R isk Ratio [facility] ([facility]) non-HDL-C 161 mg/dL normal Non-hdl-c [facility] ([facility]) HDL cholesterol 47 mg/dL >40 normal HDL Cholesterol [facility] ([facility]) cholesterol level 208 mg/dL <200 Above high normal Cholesterol Level [facility] ([facility]) ID Date Data Source [id number] 04/22/2020 10:45:00 AM EST [facility] ([facility]) Name Value Range Interpretation Code Description Data Savannah rce(s) Supporting Document(s) glucose, fasting 125 mg/dL 70-100 Above high normal Glucose, Fas ting [facility] ([facility]) blood urea nitrogen 12 mg/dL 7-18 normal Blood Urea Nitro gen [facility] ([facility]) potassium serum 3.9 mEq/L 3.5-5.1 normal Potassium Serum [facility] ([facility]) creatinine for GFR 1.09 mg/dL 0.70-1.30 normal Creatinine for GF R [facility] ([facility]) glomerular filtration rate > 60.0 >56 normal Glomerula r Filtration Rate [facility] ([facility]) sodium level 141 mEq/L 136-145 normal Sodium Level [facility] ([facility]) carbon dioxide level 28 mEq/L 21-32 normal Carbon Dioxide Level [facility] ([facility]) chloride level 105 mEq/L 98-107 normal Chloride Level [facility] ([facility]) calcium level 9.1 mg/dL 8.5-10.1 normal Calcium Level [facility] ( [facility]) anion gap 8 mEq/L 8-16 normal Anion Gap [facility] ([facility]) alkaline phosphatase 56 U/L 45-117 normal Alkaline Phosph atase [facility] AST/SGOT 21 U/L 7-37 normal AST/SGOT [facility] ([facility]) bilirubin,total 0.4 mg/dL 0.2-1.0 normal Bilirubin,total [facility] NA ([facility]) total protein 7.5 gm/dL 6.4-8.2 normal Total Protein [facility] ( [facility]) ALT/SGPT 43 U/L 12-78 normal ALT/SGPT [facility] ([facility]) albumin/globulin ratio normal Albumin/globu med Ratio [facility] ([facility]) albumin 3.7 gm/dL 3.2-5.2 normal Albumin [facility] ([facility]) ID Date Data Source [id number] 04/22/2020 10:45:00 AM EST [facility] ([facility]) Name Value Range Interpretation Code Description Data Savannah rce(s) Supporting Document(s) white blood count 9.2 10 4.0-10.0 normal White Blood Count [facility] ([facility]) red blood count 5.18 10 4.30-6.10 normal Red Blood Count [facility] ([facility]) hematocrit 47.0 % 42.0-52.0 normal Hematocrit [facility] ([facility]) hemoglobin 14.9 g/dL 13.5-17.5 normal Hemoglobin [facility] ([facility]) mean corpuscular volume 90.7 fL 80.0-96.0 normal Mean Corpusc ular Volume [facility] ([facility]) mean corpuscular hemoglobin 28.8 pg 27.0-33.0 normal Mean Corpuscular Hemoglobin [facility] ([facility]) platelet count, automated 261 10 150-450 normal Platelet C ount, Automated [facility] ([facility]) red cell distribution width 14.5 % 11.5-14.5 normal Red Cell Distribution Width [facility] ([facility]) mean corpuscular HGB conc 31.7 g/dL 32.0-36.5 Below low rodo l Mean Corpuscular HGB Conc [facility] ([facility]) neutrophils % 52.9 % 36.0-66.0 normal Neutrophils % [facility] ( [facility]) lymph % 35.5 % 24.0-44.0 normal Lymph % [facility] ([facility]) mono % 7.5 % 0.0-5.0 Above high normal [place] % [facility] ([facility]) baso % 0.8 % 0.0-1.0 normal Baso % [facility] ([facility]) immature granulocyte % 0.4 % 0-3.0 normal Immature Gran ulocyte % [facility] ([facility]) eos % 2.9 % 0.0-3.0 normal Eos % [facility] ([facility]) nucleated red blood cell % 0.0 % 0-0 normal Nucleated Red Blood Cell % [facility] ([facility]) neutrophils # 4.9 10 1.5-8.5 normal Neutrophils # [facility] ( [facility]) eos # 0.3 10 0.0-0.5 normal Eos # [facility] ([facility]) lymph # 3.3 10 1.5-5.0 normal Lymph # [facility] ([facility]) mono # 0.7 10 0.0-0.8 normal [place] # [facility] ([facility]) baso # 0.1 10 0.0-0.2 normal Baso # [facility] ([facility]) ID Date Data Source [id number] 04/22/2020 10:06:00 [place] [address] PHONE: [phone] FAX: [phone] Name .................. : DEVIN SAMUEL Acct Number.................. : [id number] ROOM. ................. : TR-08 MR Number ................... : [id number] Stay type ............. : E/R Discharge Date......... ... : 04/19/20 Admit Date ......... : 04/19/20 Admit Phys .................... : LETICIA JILL Date of ....... : 1965 Family Phys ................... : NO PCP Phone .................. : [phone] Age ................................ : 54 Film# .................. .:[id number] Sex ................................. : M Unsigned transcriptions are preliminary reports and do not represent a medical or legal document TIBIA-FIBULA AP & LAT RT [id number] COMPLETE:04/19/20 19:00 [facility] Reason(s): pain, swelling redness r lower leg, ankle and foot ? OM RIGHT TIBIA AND FIBULA SERIES: FINDINGS: There is normal alignment and position of the bones of the right lower leg. No bony abnormalities are identified. IMPRESSION: Unremarkable right lower leg. Electronically Reviewed and Signed By Alan Delgado MD , 04/22/20 10:06, [facility] Transcribe Initials: DZ , Transcribe Date: 04/19/20 21:48, Dictation Date: Copy for: LETICIA Whitaker via fax Copy for: EMERGENCY DEPT via [facility] Copy for: 710 MED REC DISCHARGED Page 1 of 1 Name Value Range Interpretation Code Description Data Savannah rce(s) Supporting Document(s) ID Date Data Source [id number] 04/22/2020 10:06:00 AM EST [facility] [address] [place] [address] PHONE: [phone] FAX: [phone] Name .................. : DEVIN Kang Acct Number.................. : [id number] ROOM. ................. : TR-08 MR Number ................... : [id number] Stay type ............. : E/R Discharge Date......... ... : 04/19/20 Admit Date ......... : 04/19/20 Admit Phys .................... : LETICIA JILL Date of ....... : 1965 Family Phys ................... : NO PCP Phone .................. : [phone] Age ................................ : 54 Film# .................. .:[id number] Sex ................................. : M Unsigned transcriptions are preliminary reports and do not represent a medical or legal document [place]KLE COMPLETE RT [id number] COMPLETE:04/19/20 19:00 [facility] [address] Reason(s): pain, redness, swelling R lower leg, ankle, foot, ? OM RIGHT ANKLE X-RAY: FINDINGS: There may be minimal inferior calcaneal spurring. No fractures are seen. Bone mineralization is intact. The articular surfaces are unremarkable. IMPRESSION: Inferior calcaneal spurring. Electronically Reviewed and Signed By Alan Delgado MD , 04/22/20 10:06, [facility] Transcribe Initials: YOANNA , Transcribe Date: 04/19/20 21:47, Dictation Date: Copy for: LETICIA Whitaker via fax Copy for: EMERGENCY DEPT via modem Copy for: 710 MED REC DISCHARGED Page 1 of 1 Name Value Range Interpretation Code Description Data [place]annah rce(s) Supporting Document(s) ID Date Data Source [id number] 04/22/2020 10:06:00 AM EST [facility] [address] [place] [address] PHONE: [phone] FAX: [phone] Name .................. : DEVIN Kang Acct Number.................. : [id number] [facility]... : [id number] Stay type ............. : E/R Discharge Date......... ... : 04/19/20 Admit Date ......... : 04/19/20 Admit Phys .................... : LETICIA JILL Date of ....... : 1965 Family Phys ................... : NO PCP Phone .................. : [phone] Age ................................ : 54 Film# .................. .:[id number] Sex ................................. : M Unsigned transcriptions are preliminary reports and do not represent a medical or legal document [place]TE-[address] [place] [id number] COMPLETE:04/19/20 19:00 [facility] 2371 Reason(s): pain, redness, swelling R lower ankle, [...] By Alan Delgado MD , 04/22/20 10:06, [facility] Transcribe Initials: YOANNA , Transcribe Date: 04/19/20 21:41, Dictation Date: Copy for: LETICIA Whiatker via fax Copy for: EMERGENCY DEPT via modem Copy for: 710 MED REC DISCHARGED Page 1 of 1 Name Value Range Interpretation Code Description Data [place]annah rce(s) Supporting Document(s) ID Date Data Source [id number] 04/22/2020 10:04:00 [place] [address] PHONE: [phone] FAX: [phone] Name .................. : DEVIN JHA A Acct Number.................. : [id number] ROOM. ................. : TR-08 MR Number ................... : [id number] Stay type ............. : E/R Discharge Date......... ... : 04/19/20 Admit Date ......... : 04/19/20 Admit Phys .................... : LETICIA JILL Date of ....... : 1965 Family Phys ................... : NO PCP Phone .................. : [phone] Age ................................ : 54 Film# .................. .:[id number] Sex ................................. : M Unsigned transcriptions are preliminary reports and do not represent a medical or legal document DOPPLER VENOUS BILAT LEG 39519 COMPLETE:04/19/20 12:35 3700 Reason(s): posterior leg pain, [...] By Alan Delgado MD , 04/22/20 10:04, [facility] Transcribe Initials: YOANNA , Transcribe Date: 04/19/20 16:48, Dictation Date: Copy for: LETICIA Whitaker via fax Copy for: EMERGENCY DEPT via modem Copy for: 710 MED REC DISCHARGED Page 1 of 1 Name Value Range Interpretation Code Description Data [place]annah rce(s) Supporting Document(s) ID Date Data Source [id number] 04/22/2020 03:23:00 PM EST [facility] Name Value Range Interpretation Code Description Data [place]annah rce(s) Supporting Document(s) CULTURE WOUND [facility] _CULTURE WOUND_$$[id number]$$[id number]$$[id number]$$[id number]$$[id number]$$[id number] DATE/TIME: 04/22/2020 15:06Culture: CULTURE WOUND Status: FinalIsolate [...] on next page --Patient: DEVIN Kang Order: [id number] Page 2Culture: CULTURE WOUND Status: Final ==== Previous result entered on 04/22/2020 07:15 ET Microbiological testing to rule out the presence of possible pathogensis in progress.Aerobic Bacterial Culture: L2Yjzwhp lococcus aureus Flag: APatient: DEVIN Kang Order: [id number] Page 3Culture: CULTURE WOUND Status: Final ====ISOLATE 1 Staphylococcus aureus Isolate 1Antibiotic OTIS IntUnits ug/mL ----Ciprofloxacin S S . . . . . .185-9Clindamycin S S . . . . . .193-3Erythromycin S S . . . . . .233-7Gentamicin S S . . . . . .267-5Levofloxacin S S . . . . . .86306-3Bbzstthkp S S . . . . . .39518-6Bmfemdzwpuqm S S . . . . . .3 1037-5Oxacillin S S . . . . . .383-0Penicillin R R . . . . . .6932-8Quinupristin/Dalfopristin S S . . . . . .71334-5Nxfwpwwq S S . . . . . .428-3Tetracycline S S . . . . . .496- 0Trimethoprim/Sulfa S S . . . . . .516-5Vancomycin S S . . . . . .524-9P1 Test performed by: Alka Kenny CLIA #: [id number] [address] [place] [address] [id number] [facility] [id number] Director : Alvin Quinones MD NPI #:Riverboat Captain : 04/22/20.0847.XMT.SENT REF 04/22/20.1523.XMT.SENT REF ID Date Data Source [id number] 04/24/2020 06:16:00 PM [facility] [address] Name Value Range Interpretation Code Description Data [place] rce(s) Supporting Document(s) Bacteria identified in Blood by Culture [facility] NO GROWTH AFTER 5 DAYS ID Date Data Source [id number] 04/29/2020 07:52:00 AM [facility] Name Value Range Interpretation Code Description Data [place] rce(s) Supporting Document(s) CULTURE BLOOD [facility] spital _CULTURE BLOOD_ TEST PERFORM ED AT [address] [address] CLIA# [id number] SEE SCANNED REPORT{ PRELIM ID Date Data Source [id number] 04/26/2020 11:30:00 AM [facility] Name Value Range Interpretation Code Description Data [place] rce(s) Supporting Document(s) CULTURE BLOOD [facility] spital _CULTURE BLOOD_{ PRELIM TEST PERFORMED AT [address] [address] CLIA# [id number] SEE SCANNED REPORT ID Date Data Source [id number] 04/19/2020 02:15:00 PM [facility] Name Value Range Interpretation Code Description Data [place] rce(s) Supporting Document(s) COMPREHENSIVE METABOLIC PANEL [facility] COMPREHENSIVE METABOLIC PANEL Sodium [Moles/volume] in Serum or Plasma 140 mEq/L 134 - 153 [facility] Potassium [Moles/volume] in Serum or Plasma 3.8 mEq/L 3.6 - 5.0 [facility] Chloride [Moles/volume] in Serum or Plasma 105 mEq/L 98 - 107 [facility] Carbon dioxide, total [Moles/volume] in Serum or Plasma 26 MEQ/L 22 - 30 [facility] Glucose [Mass/volume] in Serum or Plasma 107 MG/DL 70 - 99 H [facility] BUN 16 MG/DL 7 - 21 [facility] Creatinine [Mass/volume] in Serum or Plasma 0.9 MG/DL 0.7 - 1.5 [facility] BUN/CREAT 18 8 - 27 [facility] Protein [Mass/volume] in Serum or Plasma 7.0 G/DL 6.3 - 8.2 [facility] Albumin [Mass/volume] in Serum or Plasma 3.9 G/DL 3.9 - 5.0 [facility] Globulin [Mass/volume] in Serum by calculation 3.1 GM/DL 2.4 - 3.2 [facility] A/G RATIO 1.3 0.8 - 2.0 [facility] Calcium [Mass/volume] in Serum or Plasma 9.1 MG/DL 8.4 - 10.2 [facility] Bilirubin.total [Mass/volume] in Serum or Plasma <0.7 MG/DL 0.2 - 1.3 [facility] Alkaline phosphatase [Enzymatic activity/volume] in Serum or Plasma 47 U/L 38 - 126 [facility] Aspartate aminotransferase [Enzymatic activity/volume] in Serum or Plasma 29 U/L 5 - 40 [facility] Alanine aminotransferase [Enzymatic activity/volume] in Seru m or Plasma 26 U/L 7 - 56 [facility] Anion gap 3 in Serum or Plasma 9.0 mmol/L 8.0 - 16.0 [facility] AGE 54 yrs [facility] NON-AA GFR >60 mL/min [facility] AFR AMER GFR >60 mL/min [facility] Male GFR In terprentation 20-49 [...] >32 mL/min Normal ID Date Data Source [id number] 04/19/2020 01:56:00 PM EST [facility] Name Value Range Interpretation Code Description Data [place] rce(s) Supporting Document(s) CBC W/AUTOMATED DIFF [facility] COMPLETE BLOOD COUNT Leukocytes [#/volume] in Blood by Automated count 8.7 10^3/uL 4.2 - 1 1.0 [facility] Erythrocytes [#/volume] in Blood by Automated count 4.94 10^6/uL 4. 50 - 6.30 [facility] Hemoglobin [Mass/volume] in Blood 14.3 g/dL 14.0 - 16.0 [facility] Hematocrit [Volume Fraction] of Blood by Automated count 43.7 % 4 1.0 - 51.0 [facility] Erythrocyte mean corpuscular volume [Entitic volume] by Auto mated count 88.5 fL 80.0 - 94.0 [facility] Erythrocyte mean corpuscular hemoglobin [Entitic mass] by Automated count 28.9 pg 27.0 - 34.0 [facility] Erythrocyte mean corpuscular hemoglobin concentration [Mass/volume] by Automated count 32.7 g/dL 31.0 - 36.0 [facility] Erythrocyte distribution width [Ratio] by Automated count 14.4 % 11.5 - 14.8 [facility] Platelets [#/volume] in Blood by Automated count 265 10^3/uL 150 - 45 0 [facility] Platelet mean volume [Entitic volume] in Blood by Automated count 10.1 fL 7.4 - 10.4 [facility] Neutrophils/100 leukocytes in Blood by Automated count 46.8 % 37. 0 - 80.0 [facility] Lymphocytes/100 leukocytes in Blood by Manual count 40.6 % 25.0 - 40.0 H [facility] Monocytes/100 leukocytes in Blood by Automated count 10.0 % 3.0 - 8.0 H [facility] Eosinophils/100 leukocytes in Blood by Automated count 1.7 % 0.0 - 7.0 [facility] Basophils/100 leukocytes in Blood by Automated count 0.7 % 0.0 - 2.0 [facility] %IG 0.2 % 0.0 - [facility] % 0.0 - 0.0 [facility] al Neutrophils [#/volume] in Blood by Automated count 4.07 10^3/uL 2.00 - 6.90 [facility] Lymphocytes [#/volume] in Blood by Automated count 3.53 10^3/uL 0.60 - 3.40 H [facility] Monocytes [#/volume] in Blood by Automated count 0.87 10^3/uL 0.00 - 0.90 [facility] Eosinophils [#/volume] in Blood by Automated count 0.15 10^3/uL 0.00 - 0.70 [facility] Basophils [#/volume] in Blood by Automated count 0.06 10^3/uL 0.00 - 0.20 [facility] #IG 0.02 10^3/uL 0.00 - 0.10 [facility] ospital #NRBC 0.00 10^3/uL 0.00 - 0.00 [facility] MANUAL DIFF NOT INDICATED [facility] RBC MORPH NOT INDICATED [facility] spital ID Date Data Source [id number] 04/19/2020 01:48:00 PM EST [facility] Name Value Range Interpretation Code Description Data [place] rce(s) Supporting Document(s) Prothrombin time (PT) 13.6 SECONDS 11.0 - 15.5 [facility] INR in Platelet poor plasma by Coagulation assay 0.99 0.93 - 1. 23 [facility] aPTT in Blood by Coagulation assay 26.0 SECONDS 24.8 - 36.7 [facility] \\BLDo\\INR INTERPRETATION\\BLDx\\ Therapeutic range for Coumadin and related oral anticoagulants. - International Normalized Ratio (INR): 2.0 - 3.0 for Venous Thrombosis, Pulmonary Embolus, Tissue heart valves, Acute MN Atrial Fibrillation, Valvular heart disease and recurrent Systemic Embolism. - International Normalized Ratio (INR): 2.5 - 3.5 for Mechanical Prosthetic valve. ID Date Data Source [id number] 04/19/2020 01:23:00 PM [facility] Name Value Range Interpretation Code Description Data [place] rce(s) Supporting Document(s) Lactate [Moles/volume] in Serum or Plasma 2.7 MMOL/L 0.2 - 2.2 H [facility] ID Date Data Source [id number] 01/23/2020 10:47:48 AM EST [facility] ([facility]) Name Value Range Interpretation Code Description Data [place] rce(s) Supporting Document(s) HbA1c Hba1C [facility] ([facility]) ID Date Data Source [id number] 10/26/2019 09:33:[address] [facility] In-House Blood TestsDate/Time Colle cted: October 26, 2019 8:33 AMTest Result Reference Range Normal ValueComments: taken from left ac, tolerated well.Radha Jimenez, October 26, 2019 9:33 AMAssessment & Plan Orders:[id number] Vst-Est Level I [CPT-09384] 44510 - Venipuncture [CPT-82931] Name Value Range Interpretation Code Description Data [place] rce(s) Supporting Document(s) ID Date Data Source [id number] 10/26/2019 08:35:[address] [facility] Name Value Range Interpretation Code Description Data [place] rce(s) Supporting Document(s) HGBA1C 6.3 % N [facility] ID Date Data Source [id number] 10/26/2019 08:35:[address] [facility] Name Value Range Interpretation Code Description Data [place] rce(s) Supporting Document(s) BG FASTING 136 mg/dL 70-100 H [facility] T4, FREE 1.07 ng/dL 0.76-1.46 N [facility] TSH 1.170 microintl units/mL 0.358-3.740 N [facility] VIT D25 TOT 47.2 ng/mL 30.0-100.0 N [facility] ID Date Data Source [id number] 10/26/2019 08:35:[address] [facility] Name Value Range Interpretation Code Description Data [place] rce(s) Supporting Document(s) HCT 46.8 % 42.0-52.0 N [facility] HGB 15.1 g/dL 13.5-17.5 N [facility] Health MCH 32.3 G/DL pg 32.0-36.5 N [facility] corrina Health MCHC 29.3 PG % 27.0-33.[address] [facility] PLATELETS 279 10 10*3/mm3 150-[address] [facility] RBC 5.16 10 10*6/mm3 4.30-6.[address] [facility] RDW 14.3 % 11.5-14.[address] [facility] WBC TOTAL 11.5 4.0-10.[address] [facility] ID Date Data Source [id number] 10/26/2019 12:00:[address] [facility] Name Value Range Interpretation Code Description Data [place] rce(s) Supporting Document(s) HGBA1C 6.3 % [facility] ID Date Data Source [id number] 10/20/2019 10:51:[address] [facility] Measurements & CalculationsHeight: 67 inches (5 [...] Boostrix - AdultMfr / Lot# / Exp.Date: Archive / 2kk23 / 2Amt. Given / Route / Site: 0.5 mL / IM / Left DeltoidNDC / CVX: [id number] / 115Administered Date: 10/20/2019 14:01VFC Eligibility: Not [...] or Preferred Language: EnglishFamily and Home Address: [address] [place] [address] What is your housing situation today? I [...] needed? Denie s Insecurity: food, utilities, clothing, attendant children's institution, phone, legal services, otherWithin the past year [...] for a new pt exam. Moved to [place] in August 2019 from [place]. Pt states he is in pain in both knees, more so the right knee but left is starting to hurt as well. Right knee had a crush injury in 07/2018 lifting weights, tore ligaments and had meniscal injury. Had an evaluation at [facility], but never had surgery or PT. Pt has had pain and limping, slowly worsening. 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 Left knee began hurting about 1.5 weeks ago, feels posterior knee pain, feels clicking. Pt states he was taking Vit D weekly but can has not had refills since being in [place]. Last labs with prior PCP was around 05/2019. Hx of prediabetes on Metformin, had significant natural weight loss and intolerance to the medication as well. Pt has no record of last Tdap. Had reportedly normal c-scope 2019 in [place]. HPI performed by: Thomas ZIMMERMAN, October 20, 2019 11:10 AMProblem ReviewProblem List was reviewed and/or updated during this visit.Medication Reconciliation & ReviewMedication List was reviewed and/or updated during this visit, including review of any [id number] medications, herbal therapies, and/or supplements.Allergy ReviewAllergy List [...] Personal history of traumatic brain injury (ICD-V15.52) (ZBB99-Q84.820)Personal history of diseases of blood and blood-forming organs (ICD-V12.3) (FNF20-R97.2): DVT in right leg and PE in 2018-unprovoked, on Eliquis for 6 monthsEncounter for general adult medical examination with a bnormal findings (ICD-V70.0) (UXZ42-F54.01) Assessment: Instructions: Recommend annual medical appointments. Recommend routine dental and vision care. Recommend influenza vaccines annually and tetanus boosters every 10 years. Release of information form(s) to obtain medical records from your prior providers(s) has been signed in the office today.Elevated blood-pressure reading without diagnosis of hypertension (MEH06-L68.0) Assessment: Instructions: Recommend reduced salt intake, cut back on caffeine and alcohol, increase physical activity. We reviewed the senior care risks associated with uncontrolled high blood pressure, including stroke and heart attack. Goal BP is <140/90, please call the office if your blood pressures are consistently running higher than that cutoff. Call 911 or report to the closest ER for chest pain, shortness of breath, dizziness, or passing out.Prediabetes (WLF78-F88.03) Assessment: Instructions: Fasting labs have been ordered [...] activity and monitor weight.MORBID OBESITY (ICD- 278.01) (UJO69-J68.01) Assessment: Instructions: Successful weight loss through lifestyle modification. Keep up the hard work. Recommend healthy lifestyle modification. Encourage portion control, healthy food choices, and increasing routine physical activity. Recommendation is for 150 minutes throughout the week of cardiovascular exercise.BMI 45.0-49.9 (ICD-V85.42) (OVX98-R42.42) Assessment: Instructions: As above.Vitamin D deficiency, unspecified (SMI54-O24.9) Assessment: Instructions: Update labs in the near future.Hypothyroidism, unspecified (HEK17-K12.9) Assessment: Instructions: As above. Refills sent today.Registered disabled (WLY06-G76.9): TBI - permanently disabled Assessment: Instructions: Letter for emotional support animal for in the home given today.Generalized anxiety disorder (ICD-300.02) (SBC79-J61.1) Assessment: Instructions: Stable with current Celexa.Pain in left knee (ICD-719.46) (FUD35-F62.562) Assessment: Instructions: Referral for orthopedics and physical therapy. LIkely secondary to offloading pressure from right knee.Pain in right knee (ICD-719.46) (KAQ54-F51.561) Assessment: Instructions: Continue compression brace and supportive measures. As above.Encounter for immunization (ICD-V05.9) (JMZ50-K53) Assessment: Instructions: Tdap today.Patient Instructions/Care Plan: Encounter [...] alcohol, increase physical activity. We reviewed the senior care risks associated with uncontrolled high blood pressure, [...] Method: ElectronicAllergies:METFORMIN HCL (METFORMIN HCL) (Moderate)Orders:Tdap (5) [CPT-77717] COMP METABOLIC PANEL [CPT-67000] CBC W/DIFF [CPT-01750] HgBA1c [CPT- 23478] LIPID PANEL [CPT-80963] TSH [CPT-83034] T-4 free [CPT-24297] Vitamin D 250H Unspecified [CPT-87619] 58326 - Immo Admin (over 19 yrs), 1st Vaccine [CPT- 01659] 57686 - Immo Admin (over 19 yrs), Addtl Vaccine(s) [CPT-10366] Preventive, New, (40-64) [CPT-89735] Follow-Up Return to clinic: in 90 days for follow upAdditional Follow-Up: preDMClinical Visit Summary Completed Name Value Range Interpretation Code Description Data [place] rce(s) Supporting Document(s) Procedure Vital Signs ID Date Data Source UNK Name Value Range Interpretation Code Description Data Source(s) Body weight 5030.4 [oz_av] 5030.4 [oz_av] ALESHIA Kagn ([facility]) Systolic blood pressure 178 mm[Hg] 178 mm[Hg] A THENA ([facility]) Systolic blood pressure 170 mm[Hg] 170 mm[Hg] A [facility] ([facility]) Body mass index (BMI) [Ratio] 49.2 kg/m2 49.2 k g/m2 ROBERT ([facility]) Body height 67 [in_i] 67 [in_i] ROBERT ([facility]) Diastolic blood pressure 101 mm[Hg] 101 mm[Hg] ROBERT ([facility]) Diastolic blood pressure 95 mm[Hg] 95 mm[Hg] ROBERT ([facility]) Body weight 4792 [oz_av] 4792 [oz_av] ROBERT ([facility]) Systolic blood pressure 149 mm[Hg] 149 mm[Hg] [facility] Systolic blood pressure 153 mm[Hg] 153 mm[Hg] A [facility] ([facility]) Body mass index (BMI) [Ratio] 46.9 kg/m2 46.9 k g/m2 ROBERT ([facility]) Body height 67 [in_i] 67 [in_i] ROBERT ([facility]) Diastolic blood pressure 78 mm[Hg] 78 mm[Hg] ROBERT ([facility]) Diastolic blood pressure 79 mm[Hg] 79 mm[Hg] ROBERT ([facility]) Body weight 4792 [oz_av] 4792 [oz_av] ROBERT ([facility]) Systolic blood pressure 149 mm[Hg] 149 mm[Hg] A THENA ([facility]) Systolic blood pressure 153 mm[Hg] 153 mm[Hg] A THENA ([facility]) Body mass index (BMI) [Ratio] 46.9 kg/m2 46.9 k g/m2 ROBERT ([facility]) Body height 67 [in_i] 67 [in_i] ROBERT ([facility]) Diastolic blood pressure 78 mm[Hg] 78 mm[Hg] ROBERT ([facility]) Diastolic blood pressure 79 mm[Hg] 79 mm[Hg] ROBERT ([facility]) Body weight 4792 [oz_av] 4792 [oz_av] ROBERT ([facility]) Systolic blood pressure 149 mm[Hg] 149 mm[Hg] A THENA ([facility]) Systolic blood pressure 153 mm[Hg] 153 mm[Hg] A THEN ([facility]) Body mass index (BMI) [Ratio] 46.9 kg/m2 46.9 k g/m2 ROBERT ([facility]) Body height 67 [in_i] 67 [in_i] ROBERT ([facility]) Diastolic blood pressure 78 mm[Hg] 78 mm[Hg] ROBERT ([facility]) Diastolic blood pressure 79 mm[Hg] 79 mm[Hg] ROBERT ([facility]) Body temperature 96.6 [degF] 96.6 [degF] MEDENT ([facility]) Body weight 4598.08 [oz_av] 4598.08 [oz_av] ATH VALERIA ([facility]) Systolic blood pressure 152 mm[Hg] 152 mm[Hg] A THENA ([facility]) Systolic blood pressure 161 mm[Hg] 161 mm[Hg] A [facility] ([facility]) Body mass index (BMI) [Ratio] 45.17 kg/m2 45.17 kg/m2 ROBERT ([facility]) Body height 67 [in_i] 67 [in_i] ROBERT ([facility]) Diastolic blood pressure 89 mm[Hg] 89 mm[Hg] ROBERT ([facility]) Diastolic blood pressure 89 mm[Hg] 89 mm[Hg] ROBERT ([facility]) Body weight 4598.08 [oz_av] 4598.08 [oz_av] ATH VALERIA ([facility]) Systolic blood pressure 152 mm[Hg] 152 mm[Hg] A THENA ([facility]) Systolic blood pressure 161 mm[Hg] 161 mm[Hg] A [facility] ([facility]) Body mass index (BMI) [Ratio] 45.17 kg/m2 45.17 kg/m2 ROBERT ([facility]) Body height 67 [in_i] 67 [in_i] ROBERT ([facility]) Diastolic blood pressure 89 mm[Hg] 89 mm[Hg] ROBERT ([facility]) Diastolic blood pressure 89 mm[Hg] 89 mm[Hg] ROBERT ([facility]) Body weight 4598.08 [oz_av] 4598.08 [oz_av] ATH VALERIA ([facility]) Systolic blood pressure 152 mm[Hg] 152 mm[Hg] A THENA ([facility]) Systolic blood pressure 161 mm[Hg] 161 mm[Hg] A THENA ([facility]) Body height 67 [in_i] 67 [in_i] ROBERT ([facility]) Diastolic blood pressure 89 mm[Hg] 89 mm[Hg] ROBERT ([facility]) Diastolic blood pressure 89 mm[Hg] 89 mm[Hg] ROBERT ([facility]) Patient Treatment Plan of Care Planned Activity Planned Date Details Description Data Source (s) Flublok Quad (PF) 180 mcg (45 mcg x 4)/0.5 mL IM syringe PHARMACIST ADMINISTERED IMMUNIZATION ADMINISTERED AT TIME OF DISPENSING ROBERT ([facility]) Cephalexin 500 MG Oral Capsule ROBERT ([facility]) Flublok Quad (PF) 180 mcg (45 mcg x 4)/0.5 mL IM syringe PHARMACIST ADMINISTERED IMMUNIZATION ADMINISTERED AT TIME OF DISPENSING ROBERT ([facility]) Cephalexin 500 MG Oral Capsule ROBERT ([facility]) Flublok Quad (PF) 180 mcg (45 mcg x 4)/0.5 mL IM syringe PHARMACIST ADMINISTERED IMMUNIZATION ADMINISTERED AT TIME OF DISPENSING ROBERT ([facility]) Cephalexin 500 MG Oral Capsule ROBERT ([facility])
[2020-05-10] MEDS ORDERED: LIDOCAINE 5% (LIDODERM) PATCH TD ONE (11:50)
[2020-05-10] MEDS ORDERED: KETOROLAC 60MG 2ML VIAL IM ONE (11:50)
[2020-05-10] MEDS ORDERED: predniSONE 20 MG TAB PO ONE (11:50)
--- NOTE | 2020-05-10 12:33 | REP ---
INDICATION: inc pain/fell. COMPARISON: 10/28/2019 TECHNIQUE: Four views, sunrise could not be performed FINDINGS: Small spurs the tibial spines noted without narrowing of the medial or lateral joint margins. There are small spurs at the mediolateral joint lines as well. On the lateral view there is spurring at the superior margin of the patella as well as evidence for a suprapatellar joint effusion. Fabella is seen posterior to the knee on the lateral view as on the previous study. There is no loose body, osteochondral defect or visible fracture. No focal bone lesion. No abnormal soft tissue calcifications. IMPRESSION: Mild tricompartment osteoarthritic change without loose body, osteochondral defect or fracture evident. There is a suprapatellar effusion. No abnormal soft tissue calcifications or avulsion. <Electronically signed by Shar Motley > 05/10/20 [id number]
--- NOTE | 2020-05-10 12:57 | REP ---
INDICATION: inc pain/fell. COMPARISON: Comparison left hip radiographs March 10, 2020.. TECHNIQUE: AP view of the pelvis and AP and frogleg views of the left hip. FINDINGS: Bony pelvic ring is intact. No pelvic or sacral fracture is seen. AP and frogleg views of the left hip show smooth rounded femoral head and intact hip joint space. Periarticular soft tissues are unremarkable. No fracture is seen. IMPRESSION: Negative AP view of the pelvis and AP and frog-leg left hip series. <Electronically signed by Jaime Jean Baptiste > 05/10/20 [id number]
[2020-05-10] MEDS ORDERED: GABA-282 PO (15:11)
[2020-05-10] MEDS ORDERED: ROBA750T4 PO (15:11)
[2020-05-10] MEDS ORDERED: LIDO5DIS41 TD (15:11)
[2020-05-10 15:23] VITALS: BP 173/75
[2020-05-10] MEDS ORDERED: **NOTE PATIENT COMMENT** MISC XX SCH (21:00)
== END 2020-05-10 15:38 | disposition home or self-care (01) ==
LOC: M ED 10:36
DX: M16.12 Unilateral primary osteoarthritis, left hip (principal); M17.12 Unilateral primary osteoarthritis, left knee; M54.32 Sciatica, left side; E03.9 Hypothyroidism, unspecified; I10 Essential (primary) hypertension; F41.9 Anxiety disorder, unspecified; Z91.013 Allergy to seafood
CPT/HCPCS: 73502; 73564; 81001; 96372; 99283; J1885

== ENCOUNTER → 2020-05-21 | Outpatient (CLI) | payer MEDICARE, MEDICAID ==
[~2020-05-21] MED LIST changes: +AMLO1TAB24 PO; +GABA-1171 PO; +GABA-282 PO; +LIDO5DIS41 TD
--- NOTE | 2020-05-21 10:50 | REP ---
INDICATION: OTHER INTERVERTEBRAL DISC DISPLACEMENT. COMPARISON: Comparison CT study March 10, 2020.. TECHNIQUE: Sagittal and axial T1 and T2-weighted scans are acquired in the usual fashion with and without fat saturation. Sequences include spin echo, turbo spin-echo, and STIR imaging sequences. FINDINGS: There is some image degradation due to patient body habitus. There is a incompletely visualized fullness in the right kidney which merits further evaluation. I cannot tell if this is a cyst or a solid lesion. Lumbar vertebral body heights are preserved. There is some straightening. Alignment is otherwise normal. The tip of the conus medullaris is normal in position and appearance at T12. There is diffuse degenerative disc narrowing. At T12-L1, there is central disc bulging effacing the ventral subarachnoid space. No cauda equina compression is seen. At L1-L2, there is degenerative disc narrowing. A fairly large left posterior focal disc extrusion is present. This measures 10 x 12 x 10 mm. It is best seen on parasagittal images. It is less conspicuous on axial scans. There is compression of the left ventral margin of the thecal sac. There is bilateral foraminal disc bulging at this L1-2 level. There is mild central canal narrowing as result of the disc protrusion and some dorsally positioned epidural fat. At the L2-L3, there is degenerative disc narrowing and moderate diffuse disc bulging. There is mild central canal stenosis at L2-3. In the midline, the AP dimension of the thecal sac at L2-3 is 7.2 mm. No neural foraminal narrowing is appreciated. At L3-4, there is a right posterior disc protrusion producing mild right-sided neural foraminal narrowing. There is some compression of the right ventral margin of the thecal sac and the right 3rd lumbar root. Mild facet hypertrophy is present bilaterally. At L4-5, there is degenerative disc disease with disc space narrowing. There is a moderate size left paracentral focal disc protrusion with mild thecal sac compression. This is best seen on axial images. Mild facet hypertrophy is present bilaterally at L4-5 and there is bilateral neural foraminal narrowing due to disc bulging and facet hypertrophy. At L5-S1, there is facet hypertrophy bilaterally. There is diffuse disc bulging. Mild bilateral neural foraminal narrowing is present. IMPRESSION: Degenerative spondylosis changes. A large focal disc protrusion is present at L1-2 and moderate disc protrusion is present at L4-5. <Electronically signed by Jaime Jean Baptiste > 05/21/20 [id number]
== END ==
LOC: M RAD 08:16
DX: M51.26 Other intervertebral disc displacement, lumbar region (principal)

== ENCOUNTER 2020-07-08 10:00 | Emergency (ER) | payer MEDICARE, MEDICAID ==
[~2020-07-08] VITALS: Ht 170.2 cm; Wt 144.5 kg
[2020-07-08 11:31] LABS: BASO # 0.1 10^3/uL (0.0-0.2); BASO % 0.9 % (0.0-1.0); EOS # 0.2 10^3/uL (0.0-0.5); EOS % 2.3 % (0.0-3.0); HEMATOCRIT 47.6 % (42.0-52.0); LYMPH # 2.4 10^3/uL (1.5-5.0); LYMPH % 30.8 % (24.0-44.0); MEAN CORPUSCULAR HEMOGLOBIN 28.3 pg (27.0-33.0); MEAN CORPUSCULAR HGB CONC 31.5 g/dl (32.0-36.5); MEAN CORPUSCULAR VOLUME 89.8 fl (80.0-96.0); MONO # 0.7 10^3/uL (0.0-0.8); MONO % 8.7 % (2.0-8.0); NEUTROPHILS # 4.4 10^3/uL (1.5-8.5); NEUTROPHILS % 56.8 % (36.0-66.0); PLATELET COUNT, AUTOMATED 277 10^3/uL (150-450); WHITE BLOOD COUNT 7.8 10^3/uL (4.0-10.0)
--- NOTE | 2020-07-08 11:39 | REP ---
INDICATION: DYSPNEA/COUGH. COMPARISON: None. TECHNIQUE: SINGLE PORTABLE AP VIEW OF THE CHEST WAS PERFORMED. FINDINGS: THERE IS NO ACUTE INFILTRATE OR PULMONARY EDEMA. LUNGS ARE CLEAR. HEART IS NOT SIGNIFICANTLY ENLARGED. MEDIASTINAL SILHOUETTE IS UNREMARKABLE. THE VISUALIZED OSSEOUS STRUCTURES ARE INTACT. IMPRESSION: NO ACUTE PULMONARY DISEASE. <Electronically signed by Murphy Tavarez > 07/08/20 [id number]
--- NOTE | 2020-07-08 11:44 | REP ---
INDICATION: ro dvt COMPARISON: None. TECHNIQUE: Real time compression and duplex Doppler interrogation of the bilateral lower extremity deep venous system is performed. FINDINGS: Bilaterally, the common femoral, superficial femoral and popliteal veins are fully compressible with transducer pressure and demonstrate normal spontaneous and phasic flow, without evidence of deep venous thrombosis. IMPRESSION: No evidence of deep venous thrombosis of the bilateral lower extremity femoral popliteal venous system. <Electronically signed by Murphy Tavarez > 07/08/20 [id number]
[2020-07-08 12:01] LABS: ERYTHROCYTE SEDIMENTATION RATE 18 mm/hr (0-20)
[2020-07-08 12:03] LABS: INR 1.01; PARTIAL THROMBOPLASTIN TIME 26.1 SECONDS (24.2-38.5); PROTHROMBIN TIME 13.5 SECONDS (12.5-14.3)
[2020-07-08 12:05] LABS: ALBUMIN 3.6 GM/DL (3.2-5.2); ALT/SGPT 48 U/L (12-78); BILIRUBIN,DIRECT < 0.1 MG/DL (0.0-0.2); BILIRUBIN,TOTAL 0.3 MG/DL (0.2-1.0); BLOOD UREA NITROGEN 16 MG/DL (7-18); C REACTIVE PROTEIN QUANTITATIV 0.35 MG/DL (0.00-0.30); CALCIUM LEVEL 10.2 MG/DL (8.5-10.1); CARBON DIOXIDE LEVEL 28 MEQ/L (21-32); CHLORIDE LEVEL 105 MEQ/L (98-107); CK-MB VALUE MASS < 1.0 NG/ML (<3.6); CPK CREATINE PHOSPHOKINASE 156 U/L (39-308); CREATININE FOR GFR 1.07 MG/DL (0.70-1.30); GLOMERULAR FILTRATION RATE > 60.0 (>56); GLUCOSE, FASTING 146 MG/DL (70-100); MB/CK RELATIVE INDEX 0.64 (< OR =4); NT-PRO BNP 51 PG/ML (<125); POTASSIUM SERUM 3.9 MEQ/L (3.5-5.1); SODIUM LEVEL 140 MEQ/L (136-145); THYROXINE (T4) 11.6 UG/DL (4.5-12.0); TOTAL PROTEIN 7.3 GM/DL (6.4-8.2); TROPONIN I < 0.02 NG/ML (< 0.10)
[2020-07-08] MEDS ORDERED: CLINDAMYCIN 600 MG in IV 1 EA IV ONE (12:20)
[2020-07-08] MEDS ORDERED: ISOVUE-370 76% 100ML VIAL As Ordered ONE (12:26)
[2020-07-08] MEDS ORDERED: diphenhydrAMINE 50MG/ML VIAL (J1200) IV STA (12:29)
[2020-07-08] MEDS ORDERED: FAMOTIDINE INJ 20MG/2ML VIAL (S0028 PER 1) IVP ONE (12:30)
[2020-07-08] MEDS ORDERED: methylPREDNISolone 125MG 2ML VIAL IV ONE (12:30)
[2020-07-08 13:50] LABS: RSV AMPLIFICATION NEGATIVE (NEGATIVE)
--- NOTE | 2020-07-08 14:11 | REP ---
INDICATION: sob ro pe. COMPARISON: None. TECHNIQUE: Contrast dose: 75 ML of Isovue [address] technique: Helical scanning is acquired and overlapping 1.5 mm and contiguous 3 mm axial images are reformatted. In addition, maximum intensity projection and multiplanar re-formation images are generated in sagittal and coronal imaging projections. FINDINGS: There is good opacification in the pulmonary arterial tree. There is no evidence of vessel cut off or filling defect to suggest pulmonary embolus. Homogeneous opacity is seen in the thoracic aorta. There is no evidence of aneurysm or dissection. Lung window settings demonstrate no evidence of infiltrate. No mass or pulmonary nodule is seen. No pleural or pericardial effusion is seen. No hilar or mediastinal mass or adenopathy is observed. In the upper abdomen, normal adrenal glands are seen bilaterally. There is a 5.7 cm simple cyst in the upper pole of the right kidney. There are gallstones in the dependent portion the gallbladder. There is moderate diffuse fatty infiltration of the liver. IMPRESSION: No CT evidence of pulmonary embolus. Moderate diffuse fatty infiltration of the liver. Cholelithiasis. Right renal cyst. <Electronically signed by Jaime Jean Baptiste > 07/08/20 [id number]
[2020-07-08] MEDS ORDERED: CLEO300C2 PO (14:26)
[2020-07-08 15:29] VITALS: BP 188/94
--- NOTE | 2020-07-08 20:13 | ECGEPIP ---
[facility] - ED Test Date: 2020-07-08 Pat Name: YUDELKA BELTRAN Department: Room: - Gender: Male [employer] Planning Manager: LR : 1965 Requested By: Prabhu Bess Order Number: [id number] Reading MD: Stephen Chaudhari Measurements Intervals [place] Rate: 90 P: 34 NH: 158 QRS: 44 QRSD: 82 T: -29 QT: 378 QTc: 462 Interpretive Statements Poor data quality, interpretation may be adversely affected Normal sinus rhythm Nonspecific T wave abnormality NO PRIORS FOR COMPARISON Electronically Signed on 07-08-2020 20:13:45 EDT by Stephen Chaudhari
--- NOTE | 2020-07-09 15:26 | ED PDOC ---
Post-Departure Follow-Up cta chest faxed to [facility] for fu Prabhu John MD Jul 09, 2020 15:26
== END 2020-07-08 16:03 | disposition home or self-care (01) ==
LOC: M ED 10:00
DX: L03.119 Cellulitis of unspecified part of limb (principal); I10 Essential (primary) hypertension; R06.02 Shortness of breath; Z86.718 Personal history of other venous thrombosis and embolism; Z79.899 Other long term (current) drug therapy; Z91.013 Allergy to seafood
CPT/HCPCS: 71045; 71275; 80048; 80076; 82550; 82553; 83605; 83880; 84436; 84443; 84484; 85025; 85610; 85652; 85730; 86140; 87040; 87070; 87077; 87186; 87631; 93005; 93041; 93970; 94760; 96365; 96366; 96375; 99285; J1200; J2930; Q9967

== ENCOUNTER → 2020-08-28 | Outpatient (REF) | payer MEDICARE, MEDICAID ==
[~2020-08-28] MED LIST changes: +CLEO300C2 PO
[2020-08-28 14:26] LABS: INR 1.02; PROTHROMBIN TIME 13.6 SECONDS (12.5-14.3)
[2020-08-28 14:33] LABS: PLATELET COUNT, AUTOMATED 270 10^3/uL (150-450)
== END ==
LOC: M PLALAB 13:02
PROVIDERS: ATTEND Physical Medicine & Rehabilitation
DX: Z01.812 Encounter for preprocedural laboratory examination (principal); Z79.01 Long term (current) use of anticoagulants

== ENCOUNTER → 2021-05-21 | Outpatient (CLI) | payer MEDICARE, MEDICAID ==
[~2021-05-21] MED LIST changes: -CITA40TA4 PO; +CITA40TA7 PO
== END ==
LOC: M SOG 10:54
PROVIDERS: ATTEND Orthopaedic Surgery Adult Reconstructive Orthopaedic Surgery
DX: M25.562 Pain in left knee (principal)

== ENCOUNTER 2021-07-21 10:25 | Outpatient (RCR) | payer MEDICARE, MEDICAID ==
[~2021-07-21 10:25] MED LIST changes: -ATOR1TAB19 PO; -EUTH100T PO; -HYDR-3490 PO; -LISI5TAB11 PO
[2021-07-28] MEDS ORDERED: HYDR-3490 PO (10:00)
[2021-07-28] MEDS ORDERED: EUTH100T PO (10:00)
[2021-07-28] MEDS ORDERED: ATOR1TAB19 PO (10:00)
[2021-07-28] MEDS ORDERED: LISI5TAB11 PO (10:00)
[2021-08-06] MEDS ORDERED: XARE10TA PO ×3 (07:29→12:36)
[2021-08-06] MEDS ORDERED: ASCO50TA PO ×3 (07:29→12:36)
[2021-08-06] MEDS ORDERED: COLA100C5 PO ×3 (07:29→12:36)
[2021-08-06] MEDS ORDERED: OXYC-517 PO ×3 (07:29→12:36)
[2021-08-06] MEDS ORDERED: FERR1TAB8 PO ×3 (07:29→12:36)
== END 2021-08-12 ==
LOC: M PT 10:25
PROVIDERS: ATTEND Orthopaedic Surgery Adult Reconstructive Orthopaedic Surgery
DX: Z01.818 Encounter for other preprocedural examination (principal); M25.562 Pain in left knee

== ENCOUNTER → 2021-07-21 | Outpatient (CLI) | payer MEDICARE, MEDICAID | LOC: M EKG 09:50 | PROVIDERS: ATTEND Physician Assistant | DX: I10 Essential (primary) hypertension (principal) ==

== ENCOUNTER → 2021-07-21 | Outpatient (CLI) | payer MEDICARE, MEDICAID ==
[~2021-07-21] MED LIST changes: +ATOR1TAB19 PO; +EUTH100T PO; +HYDR-3490 PO; +LISI5TAB11 PO
== END ==
LOC: M RAD 12:20
PROVIDERS: ATTEND Orthopaedic Surgery Adult Reconstructive Orthopaedic Surgery
DX: M17.0 Bilateral primary osteoarthritis of knee (principal)

== ENCOUNTER → 2021-07-25 | Outpatient (CLI) | payer MEDICARE, MEDICAID ==
[~2021-07-25] MED LIST changes: +ATOR1TAB19 PO; +EUTH100T PO; +HYDR-3490 PO; +LISI5TAB11 PO
[2021-07-25 13:00] LABS: BASO # 0.1 10^3/uL (0.0-0.2); BASO % 0.6 % (0.0-1.0); EOS # 0.2 10^3/uL (0.0-0.5); EOS % 2.1 % (0.0-3.0); HEMATOCRIT 44.6 % (42.0-52.0); HEMOGLOBIN 14.6 g/dl (13.5-17.5); LYMPH # 3.7 10^3/uL (1.5-5.0); LYMPH % 39.5 % (24.0-44.0); MEAN CORPUSCULAR HEMOGLOBIN 29.2 pg (27.0-33.0); MEAN CORPUSCULAR HGB CONC 32.7 g/dl (32.0-36.5); MEAN CORPUSCULAR VOLUME 89.2 fl (80.0-96.0); MONO # 0.8 10^3/uL (0.0-0.8); MONO % 8.2 % (2.0-8.0); NEUTROPHILS # 4.6 10^3/uL (1.5-8.5); NEUTROPHILS % 49.2 % (36.0-66.0); PLATELET COUNT, AUTOMATED 280 10^3/uL (150-450); WHITE BLOOD COUNT 9.4 10^3/uL (4.0-10.0)
[2021-07-25 13:24] LABS: ALBUMIN 3.6 GM/DL (3.2-5.2); ALT/SGPT 30 U/L (12-78); BILIRUBIN,TOTAL 0.5 MG/DL (0.2-1.0); BLOOD UREA NITROGEN 15 MG/DL (7-18); CALCIUM LEVEL 9.4 MG/DL (8.5-10.1); CARBON DIOXIDE LEVEL 32 MEQ/L (21-32); CHLORIDE LEVEL 106 MEQ/L (98-107); CREATININE FOR GFR 1.09 MG/DL (0.70-1.30); GLOMERULAR FILTRATION RATE > 60.0 (>56); GLUCOSE, FASTING 97 MG/DL (70-100); POTASSIUM SERUM 3.8 MEQ/L (3.5-5.1); SODIUM LEVEL 142 MEQ/L (136-145); TOTAL PROTEIN 7.1 GM/DL (6.4-8.2)
== END ==
LOC: M LAB 11:44
PROVIDERS: ATTEND Physician Assistant
DX: I10 Essential (primary) hypertension (principal)

== ENCOUNTER → 2021-07-30 | Outpatient (CLI) | payer MEDICARE, MEDICAID | LOC: M LABSMTC 09:31 | PROVIDERS: ATTEND Anesthesiology | DX: Z20.822 Contact with and (suspected) exposure to COVID-19 (principal) ==

== ENCOUNTER 2021-08-04 06:16 | Observation (INO) | payer MEDICARE, MEDICAID ==
[~2021-08-04] VITALS: Ht 165.1 cm; Wt 132.9 kg
[2021-08-04] VITALS (7 sets, daily range): BP systolic 122–133; BP diastolic 68–77
[~2021-08-04 06:16] MED LIST changes: +ACETAMINOPHEN 500 MG TAB PO ONE; +LR 1,000 ML IV ONE; +NAPROXEN 250 MG TAB PO ONE; +NS 1,000 ML IV ONE; +PREGABALIN 25 MG CAP (LYRICA) PO ONE; +ROPIVA 125MG/EPINEPH 0.25MG/CLONID 40MCG/KETOR 15MG IN NS 50ML SYRINGE PA ONE; +ceFAZolin SOD 1 GM in D5W MINI-BAG PLUS 50 ML IV ONE; +ceFAZolin SOD 2 GM in IV 1 EA IV ONE; +dexameTHASONE 4 MG/ML 1ML VIAL (J1100 PER 1MG) IV ONE
[2021-08-04] MEDS ORDERED: LR 1,000 ML IV SCH ×4 (06:35→11:45)
[2021-08-04] MEDS ORDERED: MIDAZOLAM INJ 2MG/2ML VIAL (J2250 PER 1MG) As Ordered ONE (07:07)
[2021-08-04] MEDS ORDERED: propofoL 500 MG/50 ML VIAL As Ordered ONE ×3 (07:07→09:38)
[2021-08-04] MEDS ORDERED: TRANEXAMIC ACID 100 MG/ML 10ML VIAL As Ordered ONE ×2 (07:09→07:55)
[2021-08-04] MEDS ORDERED: ONDANSETRON 4MG/2ML VIAL As Ordered ONE (07:10)
[2021-08-04] MEDS ORDERED: LIDOCAINE 2% 100MG/5ML SDV (FOR ANES.) As Ordered ONE (07:10)
[2021-08-04] MEDS ORDERED: ONDANSETRON 4MG/2ML VIAL IV PRN ×3 (07:55→11:45)
[2021-08-04] MEDS ORDERED: MORPHINE 2 MG/ML 1ML VIAL IV PRN ×2 (07:55→11:45)
[2021-08-04] MEDS ORDERED: INSULIN LISPRO (NovoLOG) PER UNIT SC PRN ×2 (07:55→11:45)
[2021-08-04] MEDS ORDERED: fentaNYL 100 MCG/2 ML INJECTION IV PRN ×2 (07:55→11:45)
[2021-08-04] MEDS ORDERED: METOCLOPRAMIDE INJ 10MG/2ML VIAL (J2765 PER 1) IV PRN (07:55)
[2021-08-04] MEDS ORDERED: PERCOCET 5MG/325MG TAB PO PRN (07:55)
[2021-08-04] MEDS ORDERED: propofoL 200 MG/20 ML VIAL As Ordered ONE (08:08)
[2021-08-04] MEDS ORDERED: TRANEXAMIC ACID INJection 1,000 MG in NS 100 ML IV ONE (08:30)
[2021-08-04] MEDS ORDERED: PHENYLEPHRINE 10MG/ML 1ML VIAL (J2370 PER 1) As Ordered ONE (08:41)
[2021-08-04] MEDS ORDERED: NAPROXEN 250 MG TAB PO SCH (11:35)
[2021-08-04] MEDS ORDERED: traMADol 50 MG TAB PO PRN (11:35)
[2021-08-04] MEDS ORDERED: oxyCODONE 5MG TAB PO PRN (11:35)
[2021-08-04] MEDS ORDERED: SENNA 8.6 MG TAB (SENOKOT) PO PRN (11:35)
[2021-08-04] MEDS ORDERED: MOM 30ML SUSPENSION UDC PO PRN (11:45)
[2021-08-04] MEDS ORDERED: MAALOX 30 ML SUSP *UDC PO PRN (11:45)
[2021-08-04] MEDS: ACETAMINOPHEN TAB 650MG DOSE (2X325MG) PO SCH ×2 (12:00→17:05)
[2021-08-04] MEDS: PERCOCET 5MG/325MG TAB PO PRN ×2 (12:00→12:33)
[2021-08-04] MEDS ORDERED: ceFAZolin SOD 3 GM in D5W MINI-BAG PLUS 50 ML IV SCH (17:00)
[2021-08-04] MEDS: GABAPENTIN 300 MG CAP PO SCH ×2 (17:05→20:47)
[2021-08-04] MEDS: ceFAZolin SOD 1 GM in D5W MINI-BAG PLUS 50 ML IV SCH (17:58)
[2021-08-04] MEDS: ceFAZolin SOD 2 GM in IV 1 EA IV SCH (18:30)
[2021-08-04] MEDS: NAPROXEN 250 MG TAB PO SCH (20:47)
[2021-08-04] MEDS: DOCUSATE SODIUM 100MG CAPSULE PO SCH (20:47)
[2021-08-04] MEDS ORDERED: ASPIRIN 81MG ENTERIC TABLET PO SCH (21:00)
[2021-08-05 01:17] VITALS: BP 125/68
[2021-08-05] MEDS: ACETAMINOPHEN TAB 650MG DOSE (2X325MG) PO SCH ×4 (01:22→18:22)
[2021-08-05] MEDS: ceFAZolin SOD 1 GM in D5W MINI-BAG PLUS 50 ML IV SCH (01:23)
[2021-08-05] MEDS: ceFAZolin SOD 2 GM in IV 1 EA IV SCH (02:25)
[2021-08-05] MEDS: LEVOTHYROXINE 100MCG TABLET (0.1MG) PO SCH (06:22)
[2021-08-05 06:24] VITALS: BP 133/67
[2021-08-05 07:32] LABS: BASO % 0.2 % (0.0-1.0); EOS % 0.1 % (0.0-3.0); HEMATOCRIT 40.7 % (42.0-52.0); HEMOGLOBIN 13.3 g/dl (13.5-17.5); LYMPH # 3.2 10^3/uL (1.5-5.0); LYMPH % 17.6 % (24.0-44.0); MEAN CORPUSCULAR HEMOGLOBIN 29.1 pg (27.0-33.0); MEAN CORPUSCULAR HGB CONC 32.7 g/dl (32.0-36.5); MEAN CORPUSCULAR VOLUME 89.1 fl (80.0-96.0); MONO % 8.5 % (2.0-8.0); NEUTROPHILS # 13.3 10^3/uL (1.5-8.5); NEUTROPHILS % 73.1 % (36.0-66.0); PLATELET COUNT, AUTOMATED 265 10^3/uL (150-450); RED BLOOD COUNT 4.57 10^6/uL (4.30-6.10); WHITE BLOOD COUNT 18.2 10^3/uL (4.0-10.0)
[2021-08-05 07:55] LABS: BLOOD UREA NITROGEN 17 MG/DL (7-18); CALCIUM LEVEL 9.4 MG/DL (8.5-10.1); CARBON DIOXIDE LEVEL 28 MEQ/L (21-32); CHLORIDE LEVEL 104 MEQ/L (98-107); CREATININE FOR GFR 1.16 MG/DL (0.70-1.30); GLOMERULAR FILTRATION RATE > 60.0 (>56); GLUCOSE, FASTING 172 MG/DL (70-100); POTASSIUM SERUM 4.2 MEQ/L (3.5-5.1); SODIUM LEVEL 143 MEQ/L (136-145)
[2021-08-05 08:39] LABS: MONO # 1.6 10^3/uL (0.0-0.8)
[2021-08-05] MEDS ORDERED: RIVAROXABAN 10 MG TAB (XARELTO) PO ONE (09:15)
[2021-08-05] MEDS: DOCUSATE SODIUM 100MG CAPSULE PO SCH ×2 (09:48→21:42)
[2021-08-05] MEDS: FERROUS SULFATE 325MG TAB PO SCH (09:48)
[2021-08-05] MEDS: CitaloPRAM (CeleXA) 20 MG TAB PO SCH (09:48)
[2021-08-05] MEDS: NAPROXEN 250 MG TAB PO SCH ×2 (09:49→21:42)
[2021-08-05] MEDS: ATORVASTATIN 10 MG TAB PO SCH (09:49)
[2021-08-05] MEDS: ASCORBIC ACID 500 MG TAB PO SCH (09:49)
[2021-08-05] MEDS: oxyCODONE 5MG TAB PO PRN ×3 (09:50→21:42)
[2021-08-05] MEDS: lisinopriL 5 MG TAB PO SCH (09:51)
[2021-08-05] MEDS: GABAPENTIN 300 MG CAP PO SCH ×3 (09:51→21:42)
[2021-08-05 10:00] VITALS: BP 152/75
[2021-08-05 14:00] VITALS: BP 147/75
[2021-08-05 22:00] VITALS: BP 149/88
[2021-08-06] MEDS: LEVOTHYROXINE 100MCG TABLET (0.1MG) PO SCH (05:54)
[2021-08-06] MEDS: ACETAMINOPHEN TAB 650MG DOSE (2X325MG) PO SCH ×3 (05:54→12:06)
[2021-08-06 06:00] VITALS: BP 148/87
[2021-08-06 06:18] LABS: BASO # 0.1 10^3/uL (0.0-0.2); BASO % 0.5 % (0.0-1.0); EOS # 0.2 10^3/uL (0.0-0.5); EOS % 1.8 % (0.0-3.0); HEMATOCRIT 40.7 % (42.0-52.0); HEMOGLOBIN 13.1 g/dl (13.5-17.5); LYMPH # 4.7 10^3/uL (1.5-5.0); LYMPH % 35.9 % (24.0-44.0); MEAN CORPUSCULAR HEMOGLOBIN 28.9 pg (27.0-33.0); MEAN CORPUSCULAR HGB CONC 32.2 g/dl (32.0-36.5); MEAN CORPUSCULAR VOLUME 89.8 fl (80.0-96.0); MONO # 1.2 10^3/uL (0.0-0.8); MONO % 9.4 % (2.0-8.0); NEUTROPHILS # 6.8 10^3/uL (1.5-8.5); NEUTROPHILS % 51.9 % (36.0-66.0); PLATELET COUNT, AUTOMATED 248 10^3/uL (150-450); RED BLOOD COUNT 4.53 10^6/uL (4.30-6.10)
[2021-08-06 06:51] LABS: BLOOD UREA NITROGEN 17 MG/DL (7-18); CALCIUM LEVEL 8.5 MG/DL (8.5-10.1); CARBON DIOXIDE LEVEL 34 MEQ/L (21-32); CHLORIDE LEVEL 103 MEQ/L (98-107); CREATININE FOR GFR 1.05 MG/DL (0.70-1.30); GLOMERULAR FILTRATION RATE > 60.0 (>56); GLUCOSE, FASTING 129 MG/DL (70-100); MAGNESIUM LEVEL 1.9 MG/DL (1.8-2.4); POTASSIUM SERUM 4.5 MEQ/L (3.5-5.1); SODIUM LEVEL 141 MEQ/L (136-145)
[2021-08-06] MEDS ORDERED: OXYC-517 PO ×3 (07:29→12:36)
[2021-08-06] MEDS ORDERED: FERR1TAB8 PO ×3 (07:29→12:36)
[2021-08-06] MEDS ORDERED: ASCO50TA PO ×3 (07:29→12:36)
[2021-08-06] MEDS ORDERED: COLA100C5 PO ×3 (07:29→12:36)
[2021-08-06] MEDS ORDERED: XARE10TA PO ×3 (07:29→12:36)
[2021-08-06] MEDS: ATORVASTATIN 10 MG TAB PO SCH (08:30)
[2021-08-06] MEDS: DOCUSATE SODIUM 100MG CAPSULE PO SCH (08:30)
[2021-08-06] MEDS: ASCORBIC ACID 500 MG TAB PO SCH (08:30)
[2021-08-06 08:31] VITALS: BP 148/87
[2021-08-06] MEDS: CitaloPRAM (CeleXA) 20 MG TAB PO SCH (08:31)
[2021-08-06] MEDS: GABAPENTIN 300 MG CAP PO SCH (08:31)
[2021-08-06] MEDS: FERROUS SULFATE 325MG TAB PO SCH (08:31)
[2021-08-06] MEDS: lisinopriL 5 MG TAB PO SCH (08:31)
[2021-08-06] MEDS: NAPROXEN 250 MG TAB PO SCH (08:31)
[2021-08-06] MEDS ORDERED: RIVAROXABAN 10 MG TAB (XARELTO) PO SCH (18:00)
== END 2021-08-06 14:00 | disposition home health service (06) ==
LOC: M SDC 06:16 → M MS5PR 06:17 → M SDC 08-06 14:00
PROVIDERS: ADMIT Internal Medicine; ATTEND Internal Medicine
DX: M17.12 Unilateral primary osteoarthritis, left knee (principal); Z86.718 Personal history of other venous thrombosis and embolism; D72.829 Elevated white blood cell count, unspecified; I10 Essential (primary) hypertension; E78.5 Hyperlipidemia, unspecified; E03.9 Hypothyroidism, unspecified; G62.9 Polyneuropathy, unspecified; F39 Unspecified mood [affective] disorder; Z79.899 Other long term (current) drug therapy; Z79.890 Hormone replacement therapy; Z79.01 Long term (current) use of anticoagulants; Z91.013 Allergy to seafood; Z91.048 Other nonmedicinal substance allergy status; F17.200 Nicotine dependence, unspecified, uncomplicated
CPT/HCPCS: 27447; 36415; 64454; 73560; 80048; 83735; 85025; 88304; 88311; 96365; 96366; 96376; 97110; 97116; 97161; 97165; 97530; C1713; C1776; G0378; J0690; J2250; J2370; J2405; S2900

== ENCOUNTER → 2021-08-13 | Outpatient (CLI) | payer MEDICARE, MEDICAID ==
[~2021-08-13] MED LIST changes: -ACETAMINOPHEN 500 MG TAB PO ONE; +ASCO50TA PO; +COLA100C5 PO; +FERR1TAB8 PO; -LR 1,000 ML IV ONE; -NAPROXEN 250 MG TAB PO ONE; -NS 1,000 ML IV ONE; +OXYC-517 PO; -PREGABALIN 25 MG CAP (LYRICA) PO ONE; -ROPIVA 125MG/EPINEPH 0.25MG/CLONID 40MCG/KETOR 15MG IN NS 50ML SYRINGE PA ONE; +XARE10TA PO; -ceFAZolin SOD 1 GM in D5W MINI-BAG PLUS 50 ML IV ONE; -ceFAZolin SOD 2 GM in IV 1 EA IV ONE; -dexameTHASONE 4 MG/ML 1ML VIAL (J1100 PER 1MG) IV ONE
== END ==
LOC: M SOG 09:53
PROVIDERS: ATTEND Orthopaedic Surgery Adult Reconstructive Orthopaedic Surgery
DX: M17.12 Unilateral primary osteoarthritis, left knee (principal)

== ENCOUNTER 2021-09-01 15:59 | Emergency (ER) | payer MEDICARE, MEDICAID ==
[~2021-09-01] VITALS: Ht 170.2 cm; Wt 134.1 kg
[2021-09-01 17:13] LABS: BASO # 0.1 10^3/uL (0.0-0.2); BASO % 0.3 % (0.0-1.0); EOS % 0.1 % (0.0-3.0); HEMATOCRIT 40.8 % (42.0-52.0); HEMOGLOBIN 12.9 g/dl (13.5-17.5); LYMPH # 2.2 10^3/uL (1.5-5.0); LYMPH % 15.1 % (24.0-44.0); MEAN CORPUSCULAR HEMOGLOBIN 28.1 pg (27.0-33.0); MEAN CORPUSCULAR HGB CONC 31.6 g/dl (32.0-36.5); MEAN CORPUSCULAR VOLUME 88.9 fl (80.0-96.0); MONO % 6.8 % (2.0-8.0); NEUTROPHILS # 11.1 10^3/uL (1.5-8.5); NEUTROPHILS % 77.1 % (36.0-66.0); PLATELET COUNT, AUTOMATED 306 10^3/uL (150-450); RED BLOOD COUNT 4.59 10^6/uL (4.30-6.10); WHITE BLOOD COUNT 14.4 10^3/uL (4.0-10.0)
[2021-09-01 17:25] LABS: ALBUMIN 3.3 GM/DL (3.2-5.2); ALT/SGPT 20 U/L (12-78); BILIRUBIN,TOTAL 0.4 MG/DL (0.2-1.0); BLOOD UREA NITROGEN 12 MG/DL (7-18); CALCIUM LEVEL 9.7 MG/DL (8.5-10.1); CARBON DIOXIDE LEVEL 26 MEQ/L (21-32); CHLORIDE LEVEL 108 MEQ/L (98-107); CREATININE FOR GFR 0.87 MG/DL (0.70-1.30); GLOMERULAR FILTRATION RATE > 60.0 (>56); GLUCOSE, FASTING 151 MG/DL (70-100); POTASSIUM SERUM 4.1 MEQ/L (3.5-5.1); SODIUM LEVEL 143 MEQ/L (136-145); TOTAL PROTEIN 7.1 GM/DL (6.4-8.2)
[2021-09-01 17:29] LABS: CK-MB VALUE MASS < 1.0 NG/ML (<3.6); CPK CREATINE PHOSPHOKINASE 138 U/L (39-308); MB/CK RELATIVE INDEX 0.72 (< OR =4)
[2021-09-01] MEDS ORDERED: MECLIZINE 25 MG TABLET PO ONE ×2 (18:30→22:40)
[2021-09-01] MEDS ORDERED: diazePAM 2 MG TAB PO ONE (19:45)
[2021-09-01 22:08] LABS: APPEARANCE, URINE CLOUDY (CLEAR); BACTERIA, URINE AUTO 3+ (NEGATIVE); BILIRUBIN, URINE AUTO NEGATIVE (NEGATIVE); BLOOD, URINE BLOOD 2+ (NEGATIVE); COLOR, URINE AMBER (YELLOW); GLUCOSE, URINE (UA) AUTO NEGATIVE (NEGATIVE); KETONE, URINE AUTO 1+ mg/dL (NEGATIVE); LEUKOCYTE ESTERASE, URINE AUTO 2+ (NEGATIVE); MUCUS, URINE SMALL (NEGATIVE); NITRITE, URINE AUTO NEGATIVE (NEGATIVE); PROTEIN, URINE AUTO 1+ mg/dL (NEGATIVE); RBC, URINE AUTO 70 /HPF (0-3); SPECIFIC GRAVITY URINE AUTO 1.024 (1.002-1.035); SQUAMOUS EPITHELIAL CELL UR AU 2 /HPF (0-6); UROBILINOGEN, URINE AUTO 0.2 mg/dL (0.0-2.0); WBC, URINE AUTO 55 /HPF (0-3)
[2021-09-01] MEDS ORDERED: cefTRIAXone SOD 1 GM in D5W MINI-BAG PLUS 50 ML IV ONE (22:35)
[2021-09-01] MEDS ORDERED: MECL1TAB31 PO (22:40)
[2021-09-01] MEDS ORDERED: CEFD300C41 PO (22:40)
[2021-09-01] MEDS ORDERED: LIDOCAINE 1% SDV 5ML VIAL DILUENT ONE (23:00)
[2021-09-01] MEDS ORDERED: cefTRIAXone SOD 1GM VIAL (J0696 PER 250MG) IM ONE (23:00)
[2021-09-01 23:15] VITALS: BP 158/74
== END 2021-09-01 23:26 | disposition home or self-care (01) ==
LOC: M ED 15:59
DX: N39.0 Urinary tract infection, site not specified (principal); H81.4 Vertigo of central origin; R11.0 Nausea; I10 Essential (primary) hypertension; E78.5 Hyperlipidemia, unspecified; Z91.013 Allergy to seafood
CPT/HCPCS: 70450; 80053; 81001; 82550; 82553; 84484; 85025; 93005; 96372; 99285; J0696

== ENCOUNTER → 2022-05-22 | Outpatient (CLI) | payer MEDICARE, MEDICAID ==
[~2022-05-22] MED LIST changes: +CEFD300C41 PO; +MECL1TAB31 PO
== END ==
LOC: M SOG 11:17
PROVIDERS: ATTEND Orthopaedic Surgery Adult Reconstructive Orthopaedic Surgery
DX: M25.562 Pain in left knee (principal); M25.561 Pain in right knee

== ENCOUNTER → 2022-07-07 | Outpatient (REF) | payer MEDICARE, MEDICAID ==
[2022-07-07 16:53] LABS: BASO # 0.1 10^3/uL (0.0-0.2); BASO % 0.7 % (0.0-1.0); EOS # 0.2 10^3/uL (0.0-0.5); EOS % 2.7 % (0.0-3.0); HEMATOCRIT 47.6 % (42.0-52.0); HEMOGLOBIN 15.4 g/dl (13.5-17.5); LYMPH # 3.7 10^3/uL (1.5-5.0); LYMPH % 42.3 % (24.0-44.0); MEAN CORPUSCULAR HEMOGLOBIN 28.4 pg (27.0-33.0); MEAN CORPUSCULAR HGB CONC 32.4 g/dl (32.0-36.5); MEAN CORPUSCULAR VOLUME 87.8 fl (80.0-96.0); MONO # 0.7 10^3/uL (0.0-0.8); MONO % 7.6 % (2.0-8.0); NEUTROPHILS # 4.1 10^3/uL (1.5-8.5); NEUTROPHILS % 46.4 % (36.0-66.0); PLATELET COUNT, AUTOMATED 258 10^3/uL (150-450); RED BLOOD COUNT 5.42 10^6/uL (4.30-6.10); WHITE BLOOD COUNT 8.8 10^3/uL (4.0-10.0)
[2022-07-07 16:55] LABS: BLOOD UREA NITROGEN 13 MG/DL (9-23); CALCIUM LEVEL 8.8 MG/DL (8.5-10.1); CARBON DIOXIDE LEVEL 28 MMOL/L (20-31); CHLORIDE LEVEL 102 MMOL/L (98-107); CHOLESTEROL LEVEL 159 MG/DL (<200); CHOLESTEROL RISK RATIO 3.44 (<5); CREATININE FOR GFR 0.94 MG/DL (0.70-1.30); GLOMERULAR FILTRATION RATE > 60.0 (>56); GLUCOSE, FASTING 83 MG/DL (60-100); HDL CHOLESTEROL 46.1 MG/DL (>40); LDL CHOLESTEROL 52.9 MG/DL (<100); NON-HDL-C 112.9 MG/DL; SODIUM LEVEL 135 MMOL/L (136-145); TRIGLYCERIDES LEVEL 300 MG/DL (<150)
[2022-07-07 16:59] LABS: THYROID STIMULATING HORMONE 0.205 uIU/ML (0.55-4.78); TOTAL 25(OH) VITAMIN D 32.9 NG/ML (20.0-100.0)
[2022-07-07 17:23] LABS: CREATININE, URINE 114.7 MG/DL; MALB URINE SIEMENS < 3.0 MG/L; MAU/CREAT RATIO 2.6 MCG/MG (0.0-30.0)
== END ==
LOC: M LAB REF 16:15
PROVIDERS: ATTEND Physician Assistant
DX: E11.9 Type 2 diabetes mellitus without complications (principal)

== ENCOUNTER → 2022-07-10 | Outpatient (CLI) | payer MEDICARE, MEDICAID ==
[~2022-07-10] MED LIST changes: +CENT1TAB2 PO
== END ==
LOC: M RAD 12:01
PROVIDERS: ATTEND Orthopaedic Surgery
DX: M17.11 Unilateral primary osteoarthritis, right knee (principal)

== ENCOUNTER → 2022-07-16 | Outpatient (CLI) | payer MEDICARE, MEDICAID | LOC: M EKG 10:43 | PROVIDERS: ATTEND Physician Assistant | DX: I10 Essential (primary) hypertension (principal) ==

== ENCOUNTER 2022-07-28 06:07 | Observation (INO) | payer MEDICARE, MEDICAID ==
[~2022-07-28] VITALS: Ht 170.2 cm; Wt 121.5 kg
[~2022-07-28 06:07] MED LIST changes: +ROPIVA 100MG/KETOR 15MG/EPINEPHRINE 0.3MG IN NS 50ML SYRINGE PA ONE; +ceFAZolin SOD 2 GM in IV 1 EA IV ONE; +oxyCODONE 5MG TAB PO ONE
[2022-07-28] MEDS ORDERED: LR 1,000 ML IV SCH (06:45)
[2022-07-28] MEDS ORDERED: MIDAZOLAM INJ 2MG/2ML VIAL As Ordered ONE (06:59)
[2022-07-28] MEDS ORDERED: fentaNYL 100 MCG/2 ML INJECTION As Ordered ONE (07:00)
[2022-07-28] MEDS ORDERED: ROCURONIUM BROMIDE 50MG/5ML VIAL As Ordered ONE ×2 (07:06→09:34)
[2022-07-28] MEDS ORDERED: SUGAMMADEX SODIUM 500 MG/5 ML VIAL (BRIDION) As Ordered ONE (07:06)
[2022-07-28] MEDS ORDERED: propofoL 200 MG/20 ML VIAL As Ordered ONE (07:06)
[2022-07-28] MEDS ORDERED: KETOROLAC 60MG 2ML VIAL As Ordered ONE (07:06)
[2022-07-28] MEDS ORDERED: ACETAMINOPHEN 1000MG 100ML IV BAG As Ordered ONE (07:06)
[2022-07-28] MEDS ORDERED: LIDOCAINE 2% 100MG/5ML SDV (FOR ANES.) As Ordered ONE (07:06)
[2022-07-28] MEDS ORDERED: ONDANSETRON 4MG 2ML VIAL As Ordered ONE (07:07)
[2022-07-28] MEDS ORDERED: GABA-282 PO (07:31)
[2022-07-28] MEDS ORDERED: LEVO88TA3 PO (07:31)
[2022-07-28] MEDS ORDERED: MIDAZOLAM INJ 2MG/2ML VIAL IV PRN (07:35)
[2022-07-28] MEDS ORDERED: LIDOCAINE 1% SDV 5ML VIAL PN ONE (07:35)
[2022-07-28] MEDS ORDERED: HOME MED LIST COMPLETE! XX SCH (07:35)
[2022-07-28] MEDS ORDERED: ROPIvacaine 0.5% 30ML VIAL PN ONE (07:35)
[2022-07-28] MEDS ORDERED: TRANEXAMIC ACID 100 MG/ML 10ML VIAL As Ordered ONE ×2 (07:36→08:09)
[2022-07-28] MEDS ORDERED: HYDROmorphone HCL 2MG/ML 1ML VIAL As Ordered ONE (08:36)
[2022-07-28] MEDS: ATORVASTATIN 10 MG TAB PO SCH (09:00)
[2022-07-28] MEDS: lisinopriL 5 MG TAB PO SCH (09:00)
[2022-07-28] MEDS ORDERED: VANCOMYCIN 1000MG/20ML VIAL As Ordered ONE (10:11)
[2022-07-28] MEDS ORDERED: fentaNYL 100 MCG/2 ML INJECTION IV PRN (10:40)
[2022-07-28] MEDS ORDERED: ONDANSETRON 4MG 2ML VIAL IV PRN ×2 (10:40→11:00)
[2022-07-28] MEDS ORDERED: SENNA 8.6 MG TAB (SENOKOT) PO PRN (11:00)
[2022-07-28] MEDS ORDERED: oxyCODONE 5MG TAB PO PRN (11:00)
[2022-07-28] MEDS ORDERED: GABAPENTIN 300 MG CAP PO PRN (11:20)
[2022-07-28] MEDS: oxyCODONE 5MG TAB PO PRN ×2 (11:47→12:21)
[2022-07-28] MEDS: MORPHINE 2 MG/ML 1ML VIAL IV PRN ×2 (11:48→11:55)
[2022-07-28] MEDS: ACETAMINOPHEN TAB 650MG DOSE (2X325MG) PO SCH ×2 (12:00→17:11)
[2022-07-28 12:58] LABS: HEPATITIS B SURFACE ANTIGEN NEGATIVE (NEGATIVE)
[2022-07-28 13:24] LABS: HIV SCREEN CENTAUR SOURCE NEGATIVE (NEGATIVE)
[2022-07-28 14:23] VITALS: BP 110/67
[2022-07-28 15:05] VITALS: BP 125/71
[2022-07-28 16:00] VITALS: BP 110/65
[2022-07-28] MEDS: LEVOTHYROXINE 88MCG TABLET (0.088 MG) PO SCH (16:31)
[2022-07-28] MEDS: ceFAZolin SOD 2 GM in IV 1 EA IV SCH (16:31)
[2022-07-28] MEDS: CitaloPRAM (CeleXA) 20 MG TAB PO SCH (16:32)
[2022-07-28 17:10] VITALS: BP 124/67
[2022-07-28 19:00] VITALS: BP 116/52
[2022-07-28] MEDS: DOCUSATE SODIUM 100MG CAPSULE PO SCH (20:19)
[2022-07-28 21:49] VITALS: BP 135/75
[2022-07-29] MEDS: ceFAZolin SOD 2 GM in IV 1 EA IV SCH ×2
[2022-07-29] MEDS: ACETAMINOPHEN TAB 650MG DOSE (2X325MG) PO SCH ×3 (00:01→12:13)
[2022-07-29 01:56] VITALS: BP 115/64
[2022-07-29] MEDS: LEVOTHYROXINE 88MCG TABLET (0.088 MG) PO SCH (05:20)
[2022-07-29 05:43] VITALS: BP 142/80
[2022-07-29 07:22] LABS: HEMATOCRIT 36.1 % (42.0-52.0); HEMOGLOBIN 11.7 g/dl (13.5-17.5); MEAN CORPUSCULAR HGB CONC 32.4 g/dl (32.0-36.5); MEAN CORPUSCULAR VOLUME 89.4 fl (80.0-96.0); PLATELET COUNT, AUTOMATED 230 10^3/uL (150-450); RED BLOOD COUNT 4.04 10^6/uL (4.30-6.10); WHITE BLOOD COUNT 13.3 10^3/uL (4.0-10.0)
[2022-07-29 07:42] LABS: ALBUMIN 2.9 G/DL (3.2-5.2); ALKALINE PHOSPHATASE 50 U/L (46-116); ALT/SGPT 15 U/L (7.0-40); AST/SGOT < 8 U/L (<34); BILIRUBIN,TOTAL 0.4 MG/DL (0.3-1.2); BLOOD UREA NITROGEN 19 MG/DL (9-23); CALCIUM LEVEL 8.3 MG/DL (8.5-10.1); CARBON DIOXIDE LEVEL 27 MMOL/L (20-31); CHLORIDE LEVEL 103 MMOL/L (98-107); CREATININE FOR GFR 1.01 MG/DL (0.70-1.30); GLOMERULAR FILTRATION RATE > 60.0 (>56); GLUCOSE, FASTING 130 MG/DL (60-100); POTASSIUM SERUM 3.9 MMOL/L (3.5-5.1); SODIUM LEVEL 138 MMOL/L (136-145); TOTAL PROTEIN 5.7 G/DL (5.7-8.2)
[2022-07-29] MEDS: ATORVASTATIN 10 MG TAB PO SCH (08:37)
[2022-07-29] MEDS: CitaloPRAM (CeleXA) 20 MG TAB PO SCH (08:37)
[2022-07-29 08:38] VITALS: BP 124/76
[2022-07-29] MEDS: lisinopriL 5 MG TAB PO SCH (08:38)
[2022-07-29] MEDS: oxyCODONE 5MG TAB PO PRN ×2 (08:40→12:13)
[2022-07-29] MEDS: DOCUSATE SODIUM 100MG CAPSULE PO SCH (08:53)
[2022-07-29] MEDS ORDERED: OXYC-517 PO (08:54)
[2022-07-29] MEDS ORDERED: ASPI81TAEC PO (08:54)
[2022-07-29] MEDS ORDERED: XARE10TA PO (08:54)
[2022-07-29 10:00] VITALS: BP 135/59
[2022-07-29] MEDS ORDERED: RIVAROXABAN 10MG TAB (XARELTO) PO ONE (12:00)
[2022-07-29] MEDS ORDERED: RIVAROXABAN 10MG TAB (XARELTO) PO SCH (18:00)
[2022-08-13] MEDS ORDERED: ASPIRIN 81MG ENTERIC TABLET PO SCH (09:00)
== END 2022-07-29 12:20 | disposition home health service (06) ==
LOC: M SDC 06:07 → M MS5PR 06:08
PROVIDERS: ADMIT Orthopaedic Surgery; ATTEND Orthopaedic Surgery
DX: M17.11 Unilateral primary osteoarthritis, right knee (principal); I10 Essential (primary) hypertension; E11.9 Type 2 diabetes mellitus without complications; E78.00 Pure hypercholesterolemia, unspecified; E03.9 Hypothyroidism, unspecified; L40.9 Psoriasis, unspecified; F41.9 Anxiety disorder, unspecified; F32.A Depression, unspecified; Z96.652 Presence of left artificial knee joint; Z91.013 Allergy to seafood; Z91.048 Other nonmedicinal substance allergy status; Z79.899 Other long term (current) drug therapy; Z79.890 Hormone replacement therapy
CPT/HCPCS: 27447; 36415; 64454; 73560; 80053; 85027; 86803; 87340; 87389; 87635; 88304; 88311; 96365; 96366; 96376; 97161; 97165; 97530; C1776; G0378; J0131; J0690; J1100; J1170; J1885; J2250; J2405; J2795; J3010

== ENCOUNTER → 2022-08-12 | Outpatient (CLI) | payer MEDICARE, MEDICAID ==
[~2022-08-12] MED LIST changes: +ASPI81TAEC PO; +LEVO88TA3 PO; -ROPIVA 100MG/KETOR 15MG/EPINEPHRINE 0.3MG IN NS 50ML SYRINGE PA ONE; -ceFAZolin SOD 2 GM in IV 1 EA IV ONE; -oxyCODONE 5MG TAB PO ONE
== END ==
LOC: M SOG 07:58
PROVIDERS: ATTEND Orthopaedic Surgery
DX: Z47.89 Encounter for other orthopedic aftercare (principal)

== ENCOUNTER → 2022-10-09 | Outpatient (REF) | payer MEDICARE, MEDICAID ==
[2022-10-09 17:28] LABS: HEMOGLOBIN A1c 5.9 % (4.0-6.0)
== END ==
LOC: M LAB REF 16:26
PROVIDERS: ATTEND Physician Assistant
DX: E11.9 Type 2 diabetes mellitus without complications (principal); E03.9 Hypothyroidism, unspecified

== ENCOUNTER 2022-10-27 12:41 | Inpatient (IN) | payer MEDICARE, MEDICAID ==
[~2022-10-27] VITALS: Ht 170.2 cm; Wt 132.0 kg
[2022-10-27 13:31] LABS: BASO # 0.1 10^3/uL (0.0-0.2); BASO % 0.3 % (0.0-1.0); EOS # 0.1 10^3/uL (0.0-0.5); EOS % 0.3 % (0.0-3.0); HEMATOCRIT 44.4 % (42.0-52.0); HEMOGLOBIN 14.7 g/dl (13.5-17.5); LYMPH # 3.2 10^3/uL (1.5-5.0); LYMPH % 16.3 % (24.0-44.0); MEAN CORPUSCULAR HEMOGLOBIN 28.3 pg (27.0-33.0); MEAN CORPUSCULAR HGB CONC 33.1 g/dl (32.0-36.5); MEAN CORPUSCULAR VOLUME 85.4 fl (80.0-96.0); MONO % 8.6 % (2.0-8.0); NEUTROPHILS # 14.3 10^3/uL (1.5-8.5); NEUTROPHILS % 73.9 % (36.0-66.0); PLATELET COUNT, AUTOMATED 256 10^3/uL (150-450); WHITE BLOOD COUNT 19.4 10^3/uL (4.0-10.0)
[2022-10-27 13:56] LABS: LIPASE 26 U/L (12-53)
[2022-10-27 13:59] LABS: ALBUMIN 3.6 G/DL (3.2-5.2); ALKALINE PHOSPHATASE 61 U/L (46-116); ALT/SGPT 21 U/L (7.0-40); AST/SGOT 11 U/L (<34); BILIRUBIN,DIRECT 0.2 MG/DL (<0.4); BILIRUBIN,TOTAL 0.6 MG/DL (0.3-1.2); BLOOD UREA NITROGEN 17 MG/DL (9-23); CALCIUM LEVEL 9.4 MG/DL (8.5-10.1); CARBON DIOXIDE LEVEL 28 MMOL/L (20-31); CHLORIDE LEVEL 102 MMOL/L (98-107); CREATININE FOR GFR 1.08 MG/DL (0.70-1.30); GLOMERULAR FILTRATION RATE > 60.0 (>56); GLUCOSE, FASTING 129 MG/DL (60-100); POTASSIUM SERUM 3.8 MMOL/L (3.5-5.1); SODIUM LEVEL 138 MMOL/L (136-145); TOTAL PROTEIN 7.1 G/DL (5.7-8.2)
[2022-10-27 14:11] LABS: MONO # 1.7 10^3/uL (0.0-0.8)
[2022-10-27] MEDS ORDERED: cefTRIAXone SOD 1 GM in D5W MINI-BAG PLUS 50 ML IV ONE (16:15)
[2022-10-27] MEDS ORDERED: NS IV ONE (16:15)
[2022-10-27] MEDS ORDERED: ISOVUE-370 76% 100ML VIAL As Ordered ONE (16:22)
[2022-10-27] MEDS ORDERED: MED REC IN PROGRESS XX SCH (18:15)
[2022-10-27 18:58] LABS: PROCALCITONIN 0.13 ng/ml
[2022-10-27 20:30] VITALS: BP 139/77; TEMP 98.1; O2SAT 99
[2022-10-27] MEDS ORDERED: HOME MED LIST COMPLETE! XX SCH (22:45)
[2022-10-28 05:21] VITALS: BP 163/74; TEMP 98.1; O2SAT 96
[2022-10-28] MEDS ORDERED: LEVOTHYROXINE 88MCG TABLET (0.088 MG) PO SCH (06:00)
[2022-10-28 06:28] LABS: HEMATOCRIT 40.9 % (42.0-52.0); HEMOGLOBIN 13.2 g/dl (13.5-17.5); MEAN CORPUSCULAR HEMOGLOBIN 28.4 pg (27.0-33.0); MEAN CORPUSCULAR HGB CONC 32.3 g/dl (32.0-36.5); PLATELET COUNT, AUTOMATED 216 10^3/uL (150-450); RED BLOOD COUNT 4.65 10^6/uL (4.30-6.10); WHITE BLOOD COUNT 16.4 10^3/uL (4.0-10.0)
[2022-10-28 06:47] LABS: BLOOD UREA NITROGEN 13 MG/DL (9-23); CALCIUM LEVEL 7.9 MG/DL (8.5-10.1); CARBON DIOXIDE LEVEL 24 MMOL/L (20-31); CHLORIDE LEVEL 109 MMOL/L (98-107); GLOMERULAR FILTRATION RATE > 60.0 (>56); GLUCOSE, FASTING 115 MG/DL (60-100); POTASSIUM SERUM 3.7 MMOL/L (3.5-5.1); SODIUM LEVEL 141 MMOL/L (136-145)
[2022-10-28] MEDS ORDERED: ENOXAPARIN 40MG/0.4ML SYRINGE (J1650 PER 10MG) SC SCH (09:00)
[2022-10-28] MEDS ORDERED: CitaloPRAM (CeleXA) 20 MG TAB PO SCH (09:00)
[2022-10-28] MEDS ORDERED: ATORVASTATIN 10 MG TAB PO SCH (09:00)
[2022-10-28] MEDS ORDERED: GABAPENTIN 300 MG CAP PO SCH (09:00)
[2022-10-28] MEDS ORDERED: cefTRIAXone SOD 1 GM in D5W MINI-BAG PLUS 50 ML IV SCH (09:00)
[2022-10-28] MEDS ORDERED: lisinopriL 5 MG TAB PO SCH (09:00)
[2022-10-28 09:46] VITALS: BP 146/78
[2022-10-28] MEDS ORDERED: LEVO750T14 PO (10:06)
[2022-10-29] MEDS ORDERED: CEFD300CAP PO (10:43)
== END 2022-10-28 11:53 | disposition home or self-care (01) | DRG 872 ==
LOC: M ED 12:41 → M ED INP 17:53 → M MSPAV 20:31
PROVIDERS: ADMIT Internal Medicine; ATTEND Internal Medicine
DX: A41.51 Sepsis due to Escherichia coli [E. coli] (principal); N39.0 Urinary tract infection, site not specified; I10 Essential (primary) hypertension; E78.5 Hyperlipidemia, unspecified; E03.9 Hypothyroidism, unspecified; F41.9 Anxiety disorder, unspecified; G89.29 Other chronic pain; E11.9 Type 2 diabetes mellitus without complications; Z79.890 Hormone replacement therapy; Z79.899 Other long term (current) drug therapy; Z88.8 Allergy status to other drugs, medicaments and biological substances; Z91.048 Other nonmedicinal substance allergy status; Z91.013 Allergy to seafood; Z20.822 Contact with and (suspected) exposure to COVID-19

== ENCOUNTER → 2022-11-11 | Outpatient (CLI) | payer MEDICARE, MEDICAID ==
[~2022-11-11] MED LIST changes: +CEFD300CAP PO; +LEVO750T14 PO
== END ==
LOC: M SOG 07:52
PROVIDERS: ATTEND Orthopaedic Surgery
DX: M25.562 Pain in left knee (principal); Z96.653 Presence of artificial knee joint, bilateral

== ENCOUNTER → 2023-01-27 | Outpatient (REF) | payer MEDICARE, MEDICAID ==
[~2023-01-27] MED LIST changes: -CEFD300C41 PO; +CEFD300C42 PO; +MECL-209 PO; -MECL1TAB31 PO
[2023-01-27 16:46] LABS: APPEARANCE, URINE CLEAR (CLEAR); BACTERIA, URINE AUTO NEGATIVE (NEGATIVE); BILIRUBIN, URINE AUTO NEGATIVE (NEGATIVE); BLOOD, URINE BLOOD NEGATIVE (NEGATIVE); COLOR, URINE YELLOW (YELLOW); GLUCOSE, URINE (UA) AUTO NEGATIVE (NEGATIVE); KETONE, URINE AUTO NEGATIVE (NEGATIVE); LEUKOCYTE ESTERASE, URINE AUTO NEGATIVE (NEGATIVE); MUCUS, URINE SMALL (NEGATIVE); NITRITE, URINE AUTO NEGATIVE (NEGATIVE); PROTEIN, URINE AUTO 1+ mg/dL (NEGATIVE); RBC, URINE AUTO 2 /HPF (0-3); SPECIFIC GRAVITY URINE AUTO 1.021 (1.002-1.035); SQUAMOUS EPITHELIAL CELL UR AU 1 /HPF (0-6); UROBILINOGEN, URINE AUTO 0.2 mg/dL (0.0-2.0); WBC, URINE AUTO 1 /HPF (0-3)
== END ==
LOC: M SMT 15:24
PROVIDERS: ATTEND Nurse Practitioner Family
DX: Z87.440 Personal history of urinary (tract) infections (principal)

== ENCOUNTER 2023-04-09 10:35 | Emergency (ER) | payer MEDICARE, MEDICAID ==
[~2023-04-09] VITALS: Ht 170.2 cm; Wt 132.5 kg
[~2023-04-09 10:35] MED LIST changes: +CEFD1CAP9 PO; -CEFD300C42 PO
[2023-04-09] MEDS ORDERED: ACET650T61 PO (10:47)
[2023-04-09] MEDS ORDERED: METH-1164 PO (12:34)
[2023-04-09 12:41] VITALS: BP 158/90; TEMP 97.6; O2SAT 96
== END 2023-04-09 12:42 | disposition home or self-care (01) ==
LOC: M ED 10:35
DX: S43.401A Unspecified sprain of right shoulder joint, initial encounter (principal); X58.XXXA Exposure to other specified factors, initial encounter; Y92.009 Unspecified place in unspecified non-institutional (private) residence as the place of occurrence of the external cause; Y93.9 Activity, unspecified; Y99.9 Unspecified external cause status; E11.9 Type 2 diabetes mellitus without complications; I10 Essential (primary) hypertension; R42 Dizziness and giddiness; Z79.84 Long term (current) use of oral hypoglycemic drugs; Z79.899 Other long term (current) drug therapy; Z88.3 Allergy status to other anti-infective agents; Z88.8 Allergy status to other drugs, medicaments and biological substances; Z91.013 Allergy to seafood

== ENCOUNTER → 2023-04-28 | Outpatient (CLI) | payer MEDICARE, MEDICAID ==
[~2023-04-28] MED LIST changes: +ACET650T61 PO; +METH-1164 PO
== END ==
LOC: M SOG 07:57
PROVIDERS: ATTEND Orthopaedic Surgery
DX: Z96.653 Presence of artificial knee joint, bilateral (principal)

== ENCOUNTER → 2023-05-04 | Outpatient (CLI) | payer MEDICARE, MEDICAID | LOC: M SOG 07:49 | PROVIDERS: ATTEND Orthopaedic Surgery | DX: Z96.653 Presence of artificial knee joint, bilateral (principal) ==

== ENCOUNTER → 2023-07-26 | Outpatient (CLI) | payer MEDICARE, MEDICAID | LOC: M RAD 09:49 | PROVIDERS: ATTEND Physician Assistant | DX: R06.09 Other forms of dyspnea (principal); I10 Essential (primary) hypertension ==

== ENCOUNTER → 2023-09-09 | Outpatient (REF) | payer MEDICARE, MEDICAID ==
[2023-09-09 18:24] LABS: Trichomonas vaginalis (AMP) NOT DETECTED (NEGATIVE)
[2023-09-09 18:58] LABS: HIV 1&2 SCREEN NEGATIVE (NEGATIVE)
[2023-09-09 19:06] LABS: HEPATITIS C VIRUS ABY INDEX < 0.02 INDEX (<0.8)
[2023-09-09 20:20] LABS: GC DNA AMPLIFICATION NEGATIVE (NEGATIVE)
== END ==
LOC: M LAB REF 16:29
PROVIDERS: ATTEND Physician Assistant
DX: Z20.2 Contact with and (suspected) exposure to infections with a predominantly sexual mode of transmission (principal); Z11.3 Encounter for screening for infections with a predominantly sexual mode of transmission; Z72.89 Other problems related to lifestyle

== ENCOUNTER → 2023-12-16 | Outpatient (CLI) | payer MEDICARE, MEDICAID ==
[~2023-12-16] MED LIST changes: +GABA-1172 PO; -GABA-282 PO
== END ==
LOC: M PLARAD 10:53
PROVIDERS: ATTEND Orthopaedic Surgery
DX: M19.011 Primary osteoarthritis, right shoulder (principal); M71.311 Other bursal cyst, right shoulder; M75.31 Calcific tendinitis of right shoulder; M25.511 Pain in right shoulder

== ENCOUNTER 2023-12-18 11:47 | Emergency (ER) | payer MEDICARE, MEDICAID ==
[~2023-12-18] VITALS: Ht 170.2 cm; Wt 128.5 kg
[2023-12-18 13:00] LABS: BASO # 0.1 10^3/uL (0.0-0.2); BASO % 0.8 % (0.0-1.0); EOS # 0.1 10^3/uL (0.0-0.5); EOS % 1.8 % (0.0-3.0); HEMATOCRIT 45.9 % (42.0-52.0); LYMPH # 3.1 10^3/uL (1.5-5.0); LYMPH % 38.8 % (24.0-44.0); MEAN CORPUSCULAR HEMOGLOBIN 29.1 pg (27.0-33.0); MEAN CORPUSCULAR HGB CONC 32.7 g/dl (32.0-36.5); MONO # 0.7 10^3/uL (0.0-0.8); MONO % 8.8 % (2.0-8.0); NEUTROPHILS # 3.9 10^3/uL (1.5-8.5); NEUTROPHILS % 49.7 % (36.0-66.0); PLATELET COUNT, AUTOMATED 269 10^3/uL (150-450); RED BLOOD COUNT 5.16 10^6/uL (4.30-6.10); WHITE BLOOD COUNT 7.9 10^3/uL (4.0-10.0)
[2023-12-18 13:23] LABS: ALBUMIN 3.8 G/DL (3.2-5.2); ALKALINE PHOSPHATASE 56 U/L (46-116); ALT/SGPT 47 U/L (7.0-40); AST/SGOT 30 U/L (<34); BILIRUBIN,DIRECT 0.1 MG/DL (<0.4); BILIRUBIN,TOTAL 0.3 MG/DL (0.3-1.2); BLOOD UREA NITROGEN 20 MG/DL (9-23); CALCIUM LEVEL 9.3 MG/DL (8.3-10.6); CARBON DIOXIDE LEVEL 30 MMOL/L (20-31); CHLORIDE LEVEL 107 MMOL/L (98-107); CK-MB VALUE MASS < 1.0 NG/ML (<3.6); CREATININE FOR GFR 1.16 MG/DL (0.70-1.30); GLOMERULAR FILTRATION RATE > 60.0 (>49); GLUCOSE, FASTING 105 MG/DL (74-106); POTASSIUM SERUM 3.4 MMOL/L (3.5-5.1); SODIUM LEVEL 143 MMOL/L (136-145); TOTAL PROTEIN 7.4 G/DL (5.7-8.2)
[2023-12-18 13:26] LABS: THYROID STIMULATING HORMONE 0.956 uIU/ML (0.55-4.78)
[2023-12-18 13:32] LABS: CPK CREATINE PHOSPHOKINASE 495 U/L (46-171)
[2023-12-18 14:25] LABS: CK-MB VALUE MASS < 1.0 NG/ML (<3.6)
[2023-12-18 14:28] LABS: CPK CREATINE PHOSPHOKINASE 460 U/L (46-171); MB/CK RELATIVE INDEX 0.21 (< OR =4)
[2023-12-18 15:35] VITALS: TEMP 97.8
[2023-12-18 16:05] VITALS: BP 143/80; O2SAT 96
== END 2023-12-18 16:11 | disposition home or self-care (01) ==
LOC: M ED 11:47
DX: R06.02 Shortness of breath (principal); R94.31 Abnormal electrocardiogram [ECG] [EKG]; I10 Essential (primary) hypertension; F41.9 Anxiety disorder, unspecified; F32.A Depression, unspecified; Z91.048 Other nonmedicinal substance allergy status; Z91.013 Allergy to seafood; Z79.1 Long term (current) use of non-steroidal anti-inflammatories (NSAID); Z79.810 Long term (current) use of selective estrogen receptor modulators (SERMs); Z79.899 Other long term (current) drug therapy

== ENCOUNTER → 2024-01-21 | Outpatient (CLI) | payer MEDICARE, MEDICAID ==
[~2024-01-21] MED LIST changes: +ISOVUE-300 61% 100ML VIAL As Ordered ONE; -LEVO750T14 PO; +LEVO75TAB PO; +methylPREDNISolone SUSP 40MG/ML 1ML VIAL (DEPO MEDROL) As Ordered ONE
== END ==
LOC: M RAD 12:36
PROVIDERS: ATTEND Orthopaedic Surgery
DX: M13.811 Other specified arthritis, right shoulder (principal)
CPT/HCPCS: 20610; 77002; J0665; J1010; Q9967

== ENCOUNTER 2024-03-13 10:27 | Emergency (ER) | payer MEDICARE, MEDICAID ==
[~2024-03-13] VITALS: Ht 170.2 cm; Wt 123.6 kg
[~2024-03-13 10:27] MED LIST changes: -ISOVUE-300 61% 100ML VIAL As Ordered ONE; -methylPREDNISolone SUSP 40MG/ML 1ML VIAL (DEPO MEDROL) As Ordered ONE
[2024-03-13 15:58] VITALS: BP 124/84; TEMP 97.7; O2SAT 97
[2024-03-13] MEDS: KETOROLAC 30 MG/ML 1ML VIAL IM ONE (16:09)
[2024-03-13] MEDS ORDERED: PRED20TA PO (17:03)
[2024-03-13] MEDS: predniSONE 20 MG TAB PO ONE (17:14)
[2024-03-13] MEDS: methocarbamoL 500 MG TAB PO ONE (17:15)
== END 2024-03-13 17:42 | disposition home or self-care (01) ==
LOC: M ED 10:27
DX: M50.10 Cervical disc disorder with radiculopathy, unspecified cervical region (principal); I10 Essential (primary) hypertension; E78.5 Hyperlipidemia, unspecified; Z91.013 Allergy to seafood; Z91.018 Allergy to other foods; Z79.1 Long term (current) use of non-steroidal anti-inflammatories (NSAID); Z79.52 Long term (current) use of systemic steroids; Z79.810 Long term (current) use of selective estrogen receptor modulators (SERMs); Z79.899 Other long term (current) drug therapy
CPT/HCPCS: 72052; 72141; 73030; 96372; 99283; J1885; J7512

== ENCOUNTER → 2024-03-30 | Outpatient (CLI) | payer MEDICARE, MEDICAID ==
[~2024-03-30] MED LIST changes: +PRED20TA PO
== END ==
LOC: M SOG 07:47
PROVIDERS: ATTEND Orthopaedic Surgery
DX: M19.011 Primary osteoarthritis, right shoulder (principal)

== ENCOUNTER → 2024-04-12 | Outpatient (CLI) | payer MEDICARE, MEDICAID ==
[2024-04-12 10:31] LABS: BASO # 0.1 10^3/uL (0.0-0.2); BASO % 0.8 % (0.0-1.0); EOS # 0.2 10^3/uL (0.0-0.5); EOS % 2.4 % (0.0-3.0); HEMOGLOBIN 15.1 g/dl (13.5-17.5); LYMPH # 3.2 10^3/uL (1.5-5.0); LYMPH % 44.6 % (24.0-44.0); MEAN CORPUSCULAR HEMOGLOBIN 29.5 pg (27.0-33.0); MEAN CORPUSCULAR HGB CONC 33.6 g/dl (32.0-36.5); MEAN CORPUSCULAR VOLUME 88.1 fl (80.0-96.0); MONO # 0.6 10^3/uL (0.0-0.8); MONO % 7.7 % (2.0-8.0); NEUTROPHILS # 3.1 10^3/uL (1.5-8.5); NEUTROPHILS % 44.2 % (36.0-66.0); PLATELET COUNT, AUTOMATED 278 10^3/uL (150-450); RED BLOOD COUNT 5.11 10^6/uL (4.30-6.10); WHITE BLOOD COUNT 7.1 10^3/uL (4.0-10.0)
[2024-04-12 11:01] LABS: PSA SCREENING 0.21 NG/ML (< 4.00)
[2024-04-12 11:01] LABS: MAU/CREAT RATIO 16.2 MCG/MG (0.0-30.0)
[2024-04-12 11:03] LABS: ALBUMIN 3.6 G/DL (3.2-5.2); ALKALINE PHOSPHATASE 41 U/L (40-129); ALT/SGPT 20 U/L (7.0-40); AST/SGOT 12 U/L (<34); BILIRUBIN,TOTAL 0.4 MG/DL (0.3-1.2); BLOOD UREA NITROGEN 17 MG/DL (9-23); CALCIUM LEVEL 9.3 MG/DL (8.3-10.6); CARBON DIOXIDE LEVEL 28 MMOL/L (20-31); CHLORIDE LEVEL 104 MMOL/L (98-107); CHOLESTEROL LEVEL 186 MG/DL (<200); CHOLESTEROL RISK RATIO 3.95 (<5); CREATININE FOR GFR 0.91 MG/DL (0.70-1.30); GLOMERULAR FILTRATION RATE > 60.0 (>49); GLUCOSE, FASTING 108 MG/DL (74-106); LDL CHOLESTEROL 67.6 MG/DL (<100); POTASSIUM SERUM 3.8 MMOL/L (3.5-5.1); SODIUM LEVEL 142 MMOL/L (136-145); TRIGLYCERIDES LEVEL 357 MG/DL (<150)
[2024-04-12 11:05] LABS: FREE T4 1.11 NG/DL (0.89-1.76); THYROID STIMULATING HORMONE 0.972 uIU/ML (0.55-4.78)
[2024-04-12 11:09] LABS: HEMOGLOBIN A1c 5.8 % (4.0-6.0)
== END ==
LOC: M LAB 09:46
PROVIDERS: ATTEND Nurse Practitioner Family
DX: I10 Essential (primary) hypertension (principal); E78.2 Mixed hyperlipidemia; E11.9 Type 2 diabetes mellitus without complications; E03.9 Hypothyroidism, unspecified; Z12.5 Encounter for screening for malignant neoplasm of prostate
CPT/HCPCS: 36415; 80053; 80061; 82043; 83036; 84439; 84443; 85025; G0103

== ENCOUNTER → 2024-09-27 | Outpatient (CLI) | payer MEDICARE, MEDICAID ==
[~2024-09-27] MED LIST changes: +LIDO1ADH93 TD; -LIDO5DIS41 TD
== END ==
LOC: M SOG 07:01
PROVIDERS: ATTEND Orthopaedic Surgery
DX: Z96.653 Presence of artificial knee joint, bilateral (principal)

== ENCOUNTER → 2024-11-17 | Outpatient (CLI) | payer MEDICARE, MEDICAID ==
[2024-11-17 12:01] LABS: BASO # 0.0 10^3/uL (0.0-0.2); BASO % 0.5 % (0.0-1.0); EOS # 0.2 10^3/uL (0.0-0.5); EOS % 2.7 % (0.0-3.0); LYMPH # 2.6 10^3/uL (1.5-5.0); LYMPH % 30.1 % (24.0-44.0); MONO # 0.8 10^3/uL (0.0-0.8); MONO % 9.7 % (2.0-8.0); NEUTROPHILS # 4.8 10^3/uL (1.5-8.5); NEUTROPHILS % 56.8 % (36.0-66.0); PLATELET COUNT, AUTOMATED 263 10^3/uL (150-450)
[2024-11-17 12:12] LABS: ESTIMATED AVERAGE GLUCOSE 128.0 MG/DL (60-110)
[2024-11-17 12:31] LABS: CREATININE, URINE 208.0 MG/DL; MALB URINE SIEMENS 8.0 MG/L; MAU/CREAT RATIO 3.8 MCG/MG (0.0-30.0)
[2024-11-17 12:32] LABS: ALT/SGPT 25.0 U/L (7.0-40); AST/SGOT 17.0 U/L (<34); CALCIUM LEVEL 9.6 MG/DL (8.3-10.6); CARBON DIOXIDE LEVEL 29.0 MMOL/L (20-31); CHLORIDE LEVEL 102.0 MMOL/L (98-107); CHOLESTEROL LEVEL 168.0 MG/DL (<200); CHOLESTEROL RISK RATIO 3.75 (<5); CREATININE FOR GFR 1.03 MG/DL (0.70-1.30); GLOMERULAR FILTRATION RATE 82.6 (>49); LDL CHOLESTEROL 56.0 MG/DL (<100); MAGNESIUM LEVEL 1.7 MG/DL (1.8-2.4); NON-HDL-C 123.2 MG/DL; POTASSIUM SERUM 3.9 MMOL/L (3.5-5.1); SODIUM LEVEL 142.0 MMOL/L (136-145); TRIGLYCERIDES LEVEL 336.0 MG/DL (<150)
[2024-11-17 12:34] LABS: FREE T4 1.1 NG/DL (0.89-1.76)
== END ==
LOC: M LAB 11:24
PROVIDERS: ATTEND Nurse Practitioner Family
DX: I10 Essential (primary) hypertension (principal); E78.2 Mixed hyperlipidemia; E11.9 Type 2 diabetes mellitus without complications; E03.9 Hypothyroidism, unspecified